=== PATIENT | female | born 1945 | race Caucasian/White ===

== ENCOUNTER 2016-06-29 20:01 | Emergency (ER) | payer MEDICARE, OTHER ==
[2016-06-29] MEDS ORDERED: METOPROLOL 5 MG/5 ML VIAL IVP STA ×2 (20:31→21:07)
[2016-06-29] MEDS ORDERED: METOPROLOL 5 MG/5 ML VIAL IVP ONE ×2 (20:36→21:12)
[2016-06-29] MEDS ORDERED: WARFARIN 5 MG TABLET PO STA (21:34)
[2016-06-29] MEDS ORDERED: ATENOLOL 25 MG TABLET PO STA (21:34)
[2016-06-29] MEDS ORDERED: ATENOLOL 25 MG TABLET ONE (21:38)
== END 2016-06-29 22:16 | disposition home or self-care (01) ==
DX: I48.91 Unspecified atrial fibrillation (principal); Z79.01 Long term (current) use of anticoagulants; I48.92 Unspecified atrial flutter; R94.31 Abnormal electrocardiogram [ECG] [EKG]; I10 Essential (primary) hypertension; G35 Multiple sclerosis; M79.7 Fibromyalgia; I25.10 Atherosclerotic heart disease of native coronary artery without angina pectoris; J45.909 Unspecified asthma, uncomplicated; M19.90 Unspecified osteoarthritis, unspecified site
CPT/HCPCS: 36415; 80053; 83690; 85025; 85610; 93005; 93010; 96374; 96376; 99284; A9270

== ENCOUNTER 2017-11-25 05:11 | Emergency (ER) | payer MEDICARE, OTHER ==
--- NOTE | 2017-11-25 05:21 | ED Physician Documentation ---
PD HPI HEADACHE - Stated complaint Stated Complaint: HEADACHE/WEAKNESS - History obtained from History obtained from: Patient - History of Present Illness Timing - onset: How many days ago (3) Timing - details: Abrupt onset (left chest wall pain), Gradual onset (CAPPS) Pain level max: 8 Pain level now: 3 Worst headache ever?: No: Worst headache ever? Location: Global Quality: Aching Associated symptoms: No: Fever, Stiff neck, Nausea, Vomiting, Weakness, Numbness, Syncope, Seizure, Eye pain, Vision changes Worsened by: Moving (chest) Recently seen: Not recently seen - Additional information Additional information: Complains of three days of generalized, global headache, generalized body aches, fatigue, achy everywhere. subjective fevers (did not take her temperature but feels chills, sweats, and as though she has had fevers. She took Tylenol approximately two hours prior to arrival.) She also fell 1 to 2 weeks ago, complains of left lower chest wall pain after landing on left side of chest. earlier today, she took two Vicodin for her headache and left chest wall pain, one Vicodin followed by a repeat dose two hours later, with excellent relief of her discomfort. Review of Systems Constitutional: reports: Fever (subjective), Chills, Myalgias, Fatigue, Sweats Eyes: reports: Reviewed and negative Ears: reports: Reviewed and negative Cardiac: reports: Chest pain / pressure (left chest wall pain) Respiratory: reports: Reviewed and negative GI: reports: Reviewed and negative : denies: Dysuria, Frequency Neurologic: reports: Headache. 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 Cardiovascular: CABG - Present Medications Home Medications: Ambulatory Orders Medication Instructions Recorded Confirmed Fluoxetine HCl [Prozac] 10 mg PO DAILY 01/16/14 06/29/16 Gabapentin [Neurontin] 100 mg PO QPM 01/16/14 06/29/16 Losartan [Cozaar] 100 mg PO DAILY 01/16/14 06/29/16 Omeprazole [Prilosec] 20 mg PO DAILY 01/16/14 06/29/16 Atenolol 50 mg PO DAILY 08/12/14 06/29/16 Atorvastatin Calcium 20 mg DAILY 06/29/16 06/29/16 Warfarin Sodium [Coumadin] 2.5 mg DAILY 06/29/16 06/29/16 - Allergies Allergies/Adverse Reactions: Allergies Allergy/AdvReac Type Severity Reaction Status Date / Time amoxicillin trihydrate * Allergy Rash Verified 11/25/17 05:35 [From Augmentin] nitrofurantoin Allergy Rash Verified 11/25/17 05:35 macrocrystalline * [From Macrodantin] potassium clavulanate * Allergy Rash Verified 11/25/17 05:35 [From Augmentin] lisinopril AdvReac Unknown Verified 11/25/17 05:35 - Social History Does the pt smoke?: No Smoking Status: Never smoker Does the pt drink ETOH?: Yes Does the pt have substance abuse?: No - Immunizations Immunizations are current?: Yes - POLST Patient has POLST: Yes PD ED PE NORMAL - Vitals Vital signs reviewed: Yes - General General: Alert and oriented X 3, No acute distress, Well developed/nourished - HEENT HEENT: PERRL, EOMI, Moist mucous membranes, Pharynx benign - Neck Neck: Supple, no meningeal sign - Cardiac Cardiac: RRR, No murmur - Respiratory Respiratory: No respiratory distress, Clear bilaterally - Abdomen Abdomen: Soft, Non tender (with particular attention to LUQ (proximity of left chest wall injury): nontender abdomen) - Extremities Extremities: No edema - Neuro Neuro: Alert and oriented X 3 - Free text exam Free text exam: mild TTP directly over left lower anterior ribs without crepitus or [employer] Results - Vitals Vitals: Oxygen O2 Source Room air - Labs Labs: Laboratory Tests 11/25/17 11/25/17 11/25/17 06:00 06:07 06:07 WBC 6.4 RBC 3.87 L Hgb 12.9 Hct 37.6 MCV 97.2 MCH 33.2 H MCHC 34.2 RDW 13.5 Plt Count 182 MPV 8.6 Neut # (Auto) 4.6 Lymph # (Auto) 0.8 L [place] # (Auto) 0.7 Eos # (Auto) 0.3 Baso # (Auto) 0.0 Absolute Nucleated RBC 0.00 Nucleated RBC % 0.1 PT 18.1 H INR 1.6 H APTT 26.9 Sodium Potassium Chloride Carbon Dioxide Anion Gap BUN Creatinine Estimated GFR (MDRD) Glucose Calcium Total Bilirubin AST ALT Alkaline Phosphatase Total Protein Albumin Globulin Albumin/Globulin Ratio Lipase Urine Color YELLOW Urine Clarity CLEAR Urine pH 6.0 Ur Specific [place] 1.020 Urine Protein NEGATIVE Urine Glucose (UA) NEGATIVE Urine Ketones NEGATIVE Urine Occult Blood TRACE-INTA Urine Nitrite NEGATIVE Urine Bilirubin NEGATIVE Urine Urobilinogen 0.2 (NORMAL) Ur Leukocyte Esterase NEGATIVE Ur Microscopic Review NOT INDICATED Urine Culture Comments NOT INDICATED 11/25/17 06:07 WBC RBC Hgb Hct MCV MCH MCHC RDW Plt Count MPV Neut # (Auto) Lymph # (Auto) [place] # (Auto) Eos # (Auto) Baso # (Auto) Absolute Nucleated RBC Nucleated RBC % PT INR APTT Sodium 138 Potassium 3.7 Chloride 102 Carbon Dioxide 30 Anion Gap 6.0 BUN 9 Creatinine 0.6 Estimated GFR (MDRD) 98 Glucose 116 H Calcium 8.5 Total Bilirubin 0.7 AST 22 ALT 16 Alkaline Phosphatase 58 Total Protein 6.7 Albumin 3.9 Globulin 2.8 Albumin/Globulin Ratio 1.4 Lipase 26 Urine Color Urine Clarity Urine pH Ur Specific [place] Urine Protein Urine Glucose (UA) Urine Ketones Urine Occult Blood Urine Nitrite Urine Bilirubin Urine Urobilinogen Ur Leukocyte Esterase Ur Microscopic Review Urine Culture Comments - Rads (name of study) [facility] Radiology: Prelim report reviewed, See rad report PD MEDICAL DECISION MAKING - ED course Complexity details: reviewed results, re-evaluated patient, considered differential, d/w patient, d/w family ED course: patient has left chest wall injury with exam findings that do not suggest the need for emergent study, such as x-ray. Her other complaints are suggestive of a viral illness, such as influenza, although her fevers have been subjective and not measured. She is afebrile and emergency department, although she took acetaminophen 1 to 2 hours prior to arrival. Because of her recent fall, her headache, and The fact that she is on warfarin, a CAT scan of her head was performed. Results are unremarkable for acute injury. - Sepsis Event Vital Signs: Oxygen O2 Source Room air Departure - Departure Disposition: 01 Home, Self Care Clinical Impression: Myalgia Headache Qualifiers: Headache type: unspecified Headache chronicity pattern: acute headache Intractability: not intractable Qualified Code(s): R51 - Headache Condition: Good Instructions: ED Cephalgia Unspecified, ED Contusion Vs Minor Fx Rib Follow-Up: Matteo Osborne MD [Primary Care Provider] - Discharge Date/Time: 11/25/17 07:07
[2017-11-25 06:11] LABS: BILIRUBIN,URINE NEGATIVE (NEGATIVE); GLUCOSE, URINE (UA) NEGATIVE (NEGATIVE); KETONES,URINE (UA) NEGATIVE (NEGATIVE); LEUKOCYTE ESTERASE, URINE NEGATIVE (NEGATIVE); NITRITE,URINE NEGATIVE (NEGATIVE); OCCULT BLOOD,URINE TRACE-INTA (NEGATIVE); PROTEIN,URINE NEGATIVE (NEGATIVE); UROBILINOGEN,URINE 0.2 (NORMAL) E.U./dL (NORMAL)
[2017-11-25 06:18] LABS: CLARITY,URINE CLEAR (CLEAR)
[2017-11-25 06:23] LABS: BASOPHILS % (AUTO) 0.2 %; EOSINOPHILS # (AUTO) 0.3 10^3/uL (0.0-0.7); EOSINOPHILS % (AUTO) 4.3 %; HGB - HEMOGLOBIN 12.9 g/dL (12.0-16.0); LYMPHOCYTES # (AUTO) 0.8 10^3/uL (1.5-3.5); LYMPHOCYTES % (AUTO) 13.2 %; MEAN CORPUSCULAR HEMOGLOBIN 33.2 pg (27.0-31.0); MEAN CORPUSCULAR HGB CONC 34.2 g/dL (32.0-36.0); MEAN CORPUSCULAR VOLUME 97.2 fL (81.0-99.0); MEAN PLATELET VOLUME 8.6 fL (7.9-10.8); MONOCYTES # (AUTO) 0.7 10^3/uL (0.0-1.0); MONOCYTES % (AUTO) 10.9 %; NEUTROPHILS # (AUTO) 4.6 10^3/uL (1.5-6.6); NEUTROPHILS % (AUTO) 71.4 %; PLT - PLATELET COUNT 182 10^3/uL (130-450); RED BLOOD COUNT 3.87 10^6/uL (4.20-5.40); RED CELL DISTRIBUTION WIDTH 13.5 % (12.0-15.0); WHITE BLOOD COUNT 6.4 x10^3/uL (4.8-10.8)
[2017-11-25 06:27] LABS: INR 1.6 (0.8-1.2); PT - PROTHROMBIN TIME 18.1 secs (9.9-12.6)
[2017-11-25 06:33] LABS: ALBUMIN 3.9 g/dL (3.2-5.5); BILIRUBIN,TOTAL 0.7 mg/dL (0.2-1.0); CALCIUM 8.5 mg/dL (8.5-10.3); CREATININE 0.6 mg/dL (0.4-1.0); TOTAL PROTEIN 6.7 g/dL (6.7-8.2)
[2017-11-25 06:34] LABS: ALBUMIN/GLOBULIN RATIO 1.4 (1.0-2.2)
--- NOTE | 2017-11-25 06:34 | CT Report ---
Reason: headache Procedure Date: 11/25/2017 Accession Number: [id number] / [id number] Procedure: CT - Head W/O CPT Code: FULL RESULT: EXAM: CT HEAD EXAM DATE: 11/25/2017 06:06 AM. CLINICAL HISTORY: Headache. COMPARISON: 01/19/2012 11:07 AM. TECHNIQUE: Multiaxial CT images were obtained from the foramen magnum to the vertex. Reformats: Coronal. IV contrast: None. In accordance with CT protocol optimization, one or more of the following dose reduction techniques were utilized for this exam: automated exposure control, adjustment of mA and/or KV based on patient size, or use of iterative reconstructive technique. FINDINGS: Parenchyma: No intraparenchymal hemorrhage. No evidence of mass, midline shift, or CT findings of infarction. Fernandes-white differentiation is distinct. There is mild to moderate chronic microvascular ischemic change in the periventricular and deep white matter bilaterally. This has progressed since the prior CT in 2011. Extraaxial Spaces: Age-related generalized cerebral volume loss has also progressed. No subdural or epidural collections identified. Ventricles: Normal. No hydrocephalus. Sinuses and Orbits: Imaged paranasal sinuses, orbits, and mastoids show no significant abnormality. Bones: No evidence of fracture or calvarial defect. Other: None. IMPRESSION: 1. No acute intracranial abnormality. 2. No intracranial mass lesion, mass-effect, or hydrocephalus. 3. Age-related generalized cerebral volume loss and chronic microvascular change has progressed since the prior CT on 01/19/2012. RADIA
[2017-11-25 07:07] VITALS: BP 106/71
== END 2017-11-25 07:07 | disposition home or self-care (01) ==
LOC: ED 05:11
DX: M79.1 Myalgia (principal); R51 Headache; I10 Essential (primary) hypertension; E78.00 Pure hypercholesterolemia, unspecified; I25.10 Atherosclerotic heart disease of native coronary artery without angina pectoris; I48.91 Unspecified atrial fibrillation; Z95.1 Presence of aortocoronary bypass graft; Z79.01 Long term (current) use of anticoagulants
CPT/HCPCS: 36415; 70450; 80053; 81001; 81003; 83690; 85025; 85610; 85730; 87086; 99283

== ENCOUNTER 2017-11-30 09:25 | Outpatient (CLI) | payer MEDICARE, OTHER ==
--- NOTE | 2017-11-30 15:59 | XRAY Report ---
Reason: RECENT FALL DECREASED LUNG SOUNDS R LOWER Procedure Date: 11/30/2017 Accession Number: [id number] / [id number] Procedure: XR - Chest 2 View X-Ray CPT Code: 26912 FULL RESULT: EXAM: CHEST RADIOGRAPHY EXAM DATE: 11/30/2017 09:43 AM. CLINICAL HISTORY: Recent fall. Decreased lung sounds. COMPARISON: XR CHEST PA AND LAT 07/26/2010 5:38 AM. TECHNIQUE: 2 views. FINDINGS: Lungs/Pleura: Compared to 07/26/2010, there is no marked interval elevation of the right hemidiaphragm likely with an associated pleural effusion. A previously seen left pleural effusion has resolved. Mediastinum: The cardiomediastinal silhouette is unchanged accounting for differences in pulmonary status. Other: Median sternotomy wires are noted. IMPRESSION: 1. Interval elevation of the right hemidiaphragm with a pleural effusion. Given the history of trauma, associated rib fracture as well as pulmonary contusion are not excluded. 2. Resolution of the left pleural effusion seen in 2010. RADIA
--- NOTE | 2017-11-30 17:12 | XRAY Report ---
Reason: L WRITS PAIN, SWOLLEN Procedure Date: 11/30/2017 Accession Number: [id number] / [id number] Procedure: XR - Wrist 3 View LT CPT Code: FULL RESULT: EXAM: LEFT WRIST RADIOGRAPHY EXAM DATE: 11/30/2017 09:43 AM. CLINICAL HISTORY: Left wrist pain, swollen. COMPARISON: None. TECHNIQUE: 3 views. FINDINGS: Bones: Normal. No fractures or bone lesions. Joints: Mild degenerative changes about the first carpometacarpal joint. Soft Tissues: A surgical clip in the soft tissues corresponds to the patient's provided history of vein harvest. IMPRESSION: Mild degenerative changes as described. RADIA
== END 2017-11-30 09:26 | disposition home or self-care (01) ==
LOC: DI 09:25
PROVIDERS: ATTEND Family Medicine
DX: M25.532 Pain in left wrist (principal); J90 Pleural effusion, not elsewhere classified
CPT/HCPCS: 71046

== ENCOUNTER 2017-12-01 03:36 | Outpatient (CLI) | payer MEDICARE, OTHER | END 2017-12-01 03:37 | disposition critical access hospital (66) | LOC: EMS 03:36 | PROVIDERS: ATTEND Surgery | DX: R06.02 Shortness of breath (principal); R07.1 Chest pain on breathing | CPT/HCPCS: A0425; A0427 ==

== ENCOUNTER 2017-12-01 03:53 | Emergency (ER) | payer MEDICARE, OTHER ==
[2017-12-01 04:33] LABS: BASOPHILS % (AUTO) 0.3 %; EOSINOPHILS % (AUTO) 0.4 %; HGB - HEMOGLOBIN 11.7 g/dL (12.0-16.0); LYMPHOCYTES # (AUTO) 1.4 10^3/uL (1.5-3.5); MEAN CORPUSCULAR HEMOGLOBIN 33.2 pg (27.0-31.0); MEAN CORPUSCULAR HGB CONC 35.1 g/dL (32.0-36.0); MEAN CORPUSCULAR VOLUME 94.8 fL (81.0-99.0); MEAN PLATELET VOLUME 8.2 fL (7.9-10.8); MONOCYTES # (AUTO) 0.6 10^3/uL (0.0-1.0); MONOCYTES % (AUTO) 4.1 %; NEUTROPHILS # (AUTO) 11.6 10^3/uL (1.5-6.6); NEUTROPHILS % (AUTO) 85.2 %; PLT - PLATELET COUNT 288 10^3/uL (130-450); RED BLOOD COUNT 3.53 10^6/uL (4.20-5.40); RED CELL DISTRIBUTION WIDTH 13.5 % (12.0-15.0); WHITE BLOOD COUNT 13.6 x10^3/uL (4.8-10.8)
[2017-12-01 04:34] LABS: INR 3.1 (0.8-1.2); PT - PROTHROMBIN TIME 33.6 secs (9.9-12.6)
[2017-12-01 04:40] LABS: ALBUMIN 3.4 g/dL (3.2-5.5); ALBUMIN/GLOBULIN RATIO 0.8 (1.0-2.2); BILIRUBIN,TOTAL 0.5 mg/dL (0.2-1.0); CALCIUM 8.7 mg/dL (8.5-10.3); CREATININE 0.6 mg/dL (0.4-1.0); TOTAL PROTEIN 7.5 g/dL (6.7-8.2)
--- NOTE | 2017-12-01 04:48 | XRAY Report ---
Reason: dyspnea Procedure Date: 12/01/2017 Accession Number: [id number] / [id number] Procedure: XR - Chest 2 View X-Ray CPT Code: 59263 FULL RESULT: EXAM: CHEST RADIOGRAPHY EXAM DATE: 12/01/2017 04:41 AM. CLINICAL HISTORY: Dyspnea. COMPARISON: CHEST 2 VIEW 11/30/2017 9:35 AM. TECHNIQUE: 2 views. FINDINGS: Lungs/Pleura: Stable elevation of the right hemidiaphragm, with small right effusion. No pneumothorax. The left lung remains clear. Mediastinum: Changes of median sternotomy. No cardiomegaly. Other: None. IMPRESSION: Stable elevation of the right hemidiaphragm, with small right pleural effusion. RADIA
[2017-12-01] MEDS ORDERED: POTASSIUM BICARB 25 MEQ TABLET PO STA (06:44)
[2017-12-01] MEDS ORDERED: IPRATROPIUM/ALBUTEROL 3 ML NEB INH STA (07:56)
[2017-12-01 07:57] LABS: BILIRUBIN,URINE NEGATIVE (NEGATIVE); GLUCOSE, URINE (UA) NEGATIVE (NEGATIVE); KETONES,URINE (UA) NEGATIVE (NEGATIVE); LEUKOCYTE ESTERASE, URINE TRACE (NEGATIVE); NITRITE,URINE NEGATIVE (NEGATIVE); OCCULT BLOOD,URINE SMALL (NEGATIVE); PROTEIN,URINE 30 mg/dL (NEGATIVE); UROBILINOGEN,URINE 0.2 (NORMAL) E.U./dL (NORMAL)
[2017-12-01 08:01] LABS: CLARITY,URINE CLEAR (CLEAR)
[2017-12-01 08:15] LABS: BACTERIA,URINE Moderate /HPF (None Seen); MUCUS,URINE Marked Strands; RBC,URINE 0-5 /HPF (0-5); SQUAMOUS EPITHELIAL CELL,UR MOD Squamous (<= Few)
--- NOTE | 2017-12-01 08:20 | ED Physician Documentation ---
PD HPI DYSPNEA - Stated complaint Stated Complaint: SOA, LEFT HAND AND RIB PAIN - Chief complaint Chief Complaint: Resp - History obtained from History obtained from: Patient, Family - History of Present Illness Timing - onset: Enter time (299), Today Timing - onset during: Sleep Timing - duration: Minutes Timing - details: Abrupt onset, Still present Inciting event(s): Other (recent chest trauma) Improved by: O2, Inhaler/neb Worsened by: Exertion, Coughing Associated symptoms: Cough, Wheezing, Chest pain / discomfort Similar symptoms before: Diagnosis (chest wall contusion) Recently seen: Clinic, Emergency Dept - Additional information Additional information: 72-year-old female who had a ground-level fall 10 days ago injuring her left chest wall and her left thumb. She did not seek immediate attention and about 5 days ago the patient was seen in the emergency department here and had CT scan done of the head because she was complaining of a headache and was on Coumadin. She had chest wall pain then but imaging was not obtained. She was subequetly seen at [facility] and had imaging done 2 days later. She has continued chest wall pain and has seen her PMD in follow up and had x-rays done yesterday. This morning she awoke with a coughing paroxysm and shortness of breath and called the ambulance. She was given a duoneb treatment en-route and is improved on arrival. She received IV solumedrol as well. Her pain and shortness of breath are markedly improved on arrival. Review of Systems Constitutional: denies: Fever Eyes: denies: Decreased vision Ears: denies: Ear pain Nose: denies: Congestion Throat: denies: Sore throat Cardiac: reports: Chest pain / pressure. 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 Cardiovascular: CABG - Present Medications Home Medications: Ambulatory Orders Medication Instructions Recorded Confirmed Fluoxetine HCl [Prozac] 10 mg PO DAILY 01/16/14 06/29/16 Gabapentin [Neurontin] 100 mg PO QPM 01/16/14 06/29/16 Losartan [Cozaar] 100 mg PO DAILY 01/16/14 06/29/16 Omeprazole [Prilosec] 20 mg PO DAILY 01/16/14 06/29/16 Atenolol 50 mg PO DAILY 08/12/14 06/29/16 Atorvastatin Calcium 20 mg DAILY 06/29/16 06/29/16 Warfarin Sodium [Coumadin] 2.5 mg DAILY 06/29/16 06/29/16 Albuterol Sulf [Ventolin Hfa 1 - 2 puffs INH Q4HR PRN #1 inhaler 12/01/17 Inhaler] - Allergies Allergies/Adverse Reactions: Allergies Allergy/AdvReac Type Severity Reaction Status Date / Time amoxicillin trihydrate * Allergy Rash Verified 12/01/17 04:03 [From Augmentin] nitrofurantoin Allergy Rash Verified 12/01/17 04:03 macrocrystalline * [From Macrodantin] potassium clavulanate * Allergy Rash Verified 12/01/17 04:03 [From Augmentin] lisinopril AdvReac Unknown Verified 12/01/17 04:03 - Social History Does the pt smoke?: No Smoking Status: Never smoker Does the pt drink ETOH?: Yes Does the pt have substance abuse?: No - Immunizations Immunizations are current?: Yes - POLST Patient has POLST: Yes PD ED PE NORMAL - Vitals Vital signs reviewed: Yes (hypertensive and tachycardic ) - General General: Alert and oriented X 3, No acute distress, Well developed/nourished - HEENT HEENT: Atraumatic, PERRL, EOMI - Neck Neck: Supple, no meningeal sign - Cardiac Cardiac: RRR, No murmur - Respiratory Respiratory: No respiratory distress, Clear bilaterally, Other (There is chest wall tenderness to the left lateral chest wall. There are diminished breath sounds bilaterally ) - Abdomen Abdomen: Soft, Non tender - Back Back: No CVA TTP, No spinal TTP - Derm Derm: Normal color, Warm and dry, No rash - Extremities Extremities: No deformity, No edema, Other (There is point tenderness to the anatomic snuff box on the left with good ROM of the wrist and distal n/v is intact. ) - Neuro Neuro: Alert and oriented X 3, No motor deficit, No sensory deficit Eye Opening: Spontaneous Motor: Obeys Commands Verbal: Oriented GCS Score: 15 - Psych Psych: Normal mood, Normal affect Results - Vitals Vitals: Vital Signs - 24 hr 12/01/17 12/01/17 12/01/17 03:55 04:03 05:38 Temperature 36.3 C L Heart Rate 106 H 102 H 88 Respiratory 20 18 17 Rate Blood Pressure 208/98 H 193/95 H 151/65 H O2 Saturation 91 L 94 94 12/01/17 12/01/17 12/01/17 06:06 06:12 08:05 Temperature Heart Rate 86 76 Respiratory 20 18 Rate Blood Pressure 155/70 H 149/76 H O2 Saturation 91 L 93 95 12/01/17 08:22 Temperature Heart Rate 88 Respiratory 24 Rate Blood Pressure O2 Saturation Oxygen O2 Source Nasal cannula Oxygen Flow Rate 2 - EKG (time done) 0406 Rate: Rate (enter#) (101) Rhythm: Sinus tachycardia Intervals: Prolonged QT QRS: LVH Compare to prior EKG: Changed from prior EKG (SPT 06-29-16 rate has decreased. ) Computer interpretation: Agree with computer - Labs Labs: Laboratory Tests 12/01/17 12/01/17 12/01/17 04:15 04:15 04:15 WBC 13.6 H RBC 3.53 L Hgb 11.7 L Hct 33.5 L MCV 94.8 MCH 33.2 H MCHC 35.1 RDW 13.5 Plt Count 288 MPV 8.2 Neut # (Auto) 11.6 H Lymph # (Auto) 1.4 L [place] # (Auto) 0.6 Eos # (Auto) 0.0 Baso # (Auto) 0.0 Absolute Nucleated RBC 0.01 Nucleated RBC % 0.0 PT INR Sodium 138 Potassium 2.9 L Chloride 102 Carbon Dioxide 26 Anion Gap 10.0 BUN 13 Creatinine 0.6 Estimated GFR (MDRD) 98 Glucose 119 H Calcium 8.7 Total Bilirubin 0.5 AST 23 ALT 17 Alkaline Phosphatase 58 Troponin I < 0.04 B-Natriuretic Peptide Total Protein 7.5 Albumin 3.4 Globulin 4.1 Albumin/Globulin Ratio 0.8 L Lipase 21 L Urine Color Urine Clarity Urine pH Ur Specific [place] Urine Protein Urine Glucose (UA) Urine Ketones Urine Occult Blood Urine Nitrite Urine Bilirubin Urine Urobilinogen Ur Leukocyte Esterase Urine RBC Urine WBC Ur Epithelial Cells Ur Squamous Epith Cells Urine Bacteria Urine Mucus Ur Microscopic Review Urine Culture Comments 12/01/17 12/01/17 12/01/17 04:15 04:15 07:48 WBC RBC Hgb Hct MCV MCH MCHC RDW Plt Count MPV Neut # (Auto) Lymph # (Auto) [place] # (Auto) Eos # (Auto) Baso # (Auto) Absolute Nucleated RBC Nucleated RBC % PT 33.6 H INR 3.1 H Sodium Potassium Chloride Carbon Dioxide Anion Gap BUN Creatinine Estimated GFR (MDRD) Glucose Calcium Total Bilirubin AST ALT Alkaline Phosphatase Troponin I B-Natriuretic Peptide 421 H Total Protein Albumin Globulin Albumin/Globulin Ratio Lipase Urine Color YELLOW Urine Clarity CLEAR Urine pH 6.0 Ur Specific [place] 1.020 Urine Protein 30 H Urine Glucose (UA) NEGATIVE Urine Ketones NEGATIVE Urine Occult Blood SMALL H Urine Nitrite NEGATIVE Urine Bilirubin NEGATIVE Urine Urobilinogen 0.2 (NORMAL) Ur Leukocyte Esterase TRACE H Urine RBC 0-5 Urine WBC 4-5 Ur Epithelial Cells FEW Transitional Ur Squamous Epith Cells MOD Squamous H Urine Bacteria Moderate H Urine Mucus Marked Strands Ur Microscopic Review INDICATED Urine Culture Comments NOT INDICATED - Rads (name of study) 2 view chest Radiology: Prelim report reviewed (Impression: Stable elevation of right hemidiaphragm, with small right pleural effusion.), EMP read indepedently, See rad report PD MEDICAL DECISION MAKING - ED course Complexity details: reviewed results, re-evaluated patient, considered differential, d/w patient, d/w family ED course: 72-year-old female with a chest wall injury has pain and wheezing 2 weeks + out from the injury. She has some room air hypoxia on arrival and no evidence of pneumonia on x-ray exam. There has been no progression over the past day and in fact the x-ray today shows a better inspiratory effort. - Sepsis Event Vital Signs: Vital Signs - 24 hr 12/01/17 12/01/17 12/01/17 03:55 04:03 05:38 Temperature 36.3 C L Heart Rate 106 H 102 H 88 Respiratory 20 18 17 Rate Blood Pressure 208/98 H 193/95 H 151/65 H O2 Saturation 91 L 94 94 12/01/17 12/01/17 12/01/17 06:06 06:12 08:05 Temperature Heart Rate 86 76 Respiratory 20 18 Rate Blood Pressure 155/70 H 149/76 H O2 Saturation 91 L 93 95 //18 08:22 Temperature Heart Rate 88 Respiratory 24 Rate Blood Pressure O2 Saturation Oxygen O2 Source Nasal cannula Oxygen Flow Rate 2 Departure - Departure Disposition: 01 Home, Self Care Clinical Impression: Chest wall contusion Qualifiers: Encounter type: initial encounter Laterality: left Qualified Code(s): S20.212A - Contusion of left front wall of thorax, initial encounter Left wrist sprain Qualifiers: Encounter type: initial encounter Qualified Code(s): S63.502A - Unspecified sprain of left wrist, initial encounter Condition: Stable Instructions: ED Contusion Rib, ED Sprain Wrist, ED Contusion Vs Minor Fx Rib Follow-Up: Matteo Osborne MD [Provider Admit Priv/Credential] - Prescriptions: Albuterol Sulf [Ventolin Hfa Inhaler] 1 - 2 puffs INH Q4HR PRN #1 inhaler PRN Reason: Shortness Of Air/Wheezing
[2017-12-01 09:27] VITALS: BP 138/74
== END 2017-12-01 09:26 | disposition home or self-care (01) ==
LOC: EDUNIT# → ED 03:53
DX: S20.212A Contusion of left front wall of thorax, initial encounter (principal); S63.502A Unspecified sprain of left wrist, initial encounter; R00.0 Tachycardia, unspecified; I51.7 Cardiomegaly; I45.81 Long QT syndrome; I10 Essential (primary) hypertension; I48.91 Unspecified atrial fibrillation; Z79.01 Long term (current) use of anticoagulants; W18.30XA Fall on same level, unspecified, initial encounter
CPT/HCPCS: 36415; 71046; 80053; 81001; 83690; 83880; 84484; 85025; 85610; 93005; 94640; 94664; 99283; 99284; A9270; 81003; 87086

== ENCOUNTER 2018-02-17 08:35 | Outpatient (CLI) | payer MEDICARE, OTHER ==
--- NOTE | 2018-02-17 11:08 | Mammography Report ---
Reason: LEFT BREAST ITICHINESS Procedure Date: 02/17/2018 Accession Number: [id number] / [id number] Procedure: ALEKSANDR - Diagnostic Dig Bilat CPT Code: FULL RESULT: EXAM: Diagnostic Dig Bilat DATE: 02/17/2018 10:22 AM CLINICAL HISTORY: Diagnostic mammogram. The patient presents for multiple months of breast imaging. The patient has a history of early menses and breast implants with silicone placed in 1981 which have since been removed. TECHNIQUE: Bilateral CC and MLO views were obtained and 2-D and 3-D mammographic technique. COMPARISON: 05/24/2013. FINDINGS: The breasts demonstrate scattered fibroglandular densities bilaterally. Typically benign calcifications are noted. Additionally, large coarse hyperdensities suggestive of silicone leakage or silicone granuloma consistent with history of previous silicone implants, typically benign. No suspicious masses, calcifications or architectural distortions are identified. IMPRESSION: Benign findings RECOMMENDATION: Recommend routine annual Screening mammography unless otherwise clinically indicated. BIRADS CATEGORY 2: Benign findings STANDARD QUALIFYING STATEMENTS: 1. This examination was not reviewed with the aid of Computer-Aided Detection (CAD). 2. A negative or benign imaging report should not delay biopsy if clinically suspicious findings are present. Consider surgical consultation if warrented. More than 5% of cancers are not identified by imaging. 3. Dense breasts may obscure an underlying neoplasm. 4. This examination was reviewed with the aid of 3D imaging (tomography).
== END 2018-02-17 08:36 | disposition home or self-care (01) ==
LOC: DI 08:35
PROVIDERS: ATTEND Internal Medicine
DX: N64.59 Other signs and symptoms in breast (principal); Z98.82 Breast implant status; M35.3 Polymyalgia rheumatica; Z79.52 Long term (current) use of systemic steroids; M85.89 Other specified disorders of bone density and structure, multiple sites
CPT/HCPCS: 77066; 77080

== ENCOUNTER 2018-02-17 08:36 | Outpatient (CLI) | payer MEDICARE, OTHER ==
--- NOTE | 2018-02-20 18:55 | DEXA Report ---
Reason: PMR ON PREDNISONE-CHRONIC Procedure Date: 02/17/2018 Accession Number: [id number] / [id number] Procedure: DEX - Dexa Spine and/or Hip CPT Code: FULL RESULT: EXAM: Dexa Spine and/or Hip DATE: 02/17/2018 10:38 AM CLINICAL HISTORY: PMR ON PREDNISONE-CHRONIC TECHNIQUE: Dual energy x-ray absorptiometry (DXA) was performed on a [employer] System. Regions measured are the AP Spine, femoral neck, and if needed forearm. COMPARISON: None. In accordance with the International Society for Clinical Densitometry (ISCD) guidelines, data from previous exams may be reanalyzed using current recommendations and techniques. This is done to allow a more accurate basis for comparison with the current study. FINDINGS: The data for the lumbar spine is as follows: BMD (g/cm/cm) T-SCORE Z-SCORE REGION L1 0.955 -1.5 0.3 L2 0.983 -1.8 0.0 L3 1.099 -0.8 0.9 L4 1.039 -1.3 0.4 TOTAL 1.023 -1.3 0.5 NOTE: All evaluable vertebrae are used for classification The data for the hip is as follows: BMD (g/cm/cm) T-SCORE Z-SCORE REGION Neck 0.800 -1.7 0.1 TOTAL 0.749 -2.1 -0.4 NOTE: The femoral neck or total proximal femur, whichever is lowest, is used for classification. IMPRESSION: THE WHO CLASSIFICATION BASED ON THE INTERNATIONAL REFERENCE STANDARD IS OSTEOPENIA. THE FRACTURE RISK IS INCREASED. RECOMMENDATION: Patients with diagnosis of osteoporosis or osteopenia should have regular bone mineral density assessment. For those eligible for Medicare, routine testing is allowed once every 2 years. Testing frequency can be increased for patients who have rapidly progressing disease or for those who are receiving medical therapy to restore bone mass. COMMENT: World Health Organization (WHO) definitions for osteoporosis and osteopenia: NORMAL BMD: T-score at -1.0 or higher, fracture risk is low OSTEOPENIA BMD: T-score between -1.0 and -2.5, fracture risk is increased. OSTEOPOROSIS BMD: T-score at -2.5 or lower, fracture risk is high. National Osteoporosis Foundation recommends: 1. Obtain adequate dietary calcium (at least 1200 mg per day) and vitamin D (400-800 international units per day). 2. Participate, as appropriate, in regular weightbearing and muscle-strengthening exercise. 3. Avoid tobacco use and reduce alcohol and caffeine intake. 4. For more detailed information see the website at www.NOF.org.
== END 2018-02-17 08:37 | disposition home or self-care (01) ==
LOC: DI 08:36
PROVIDERS: ATTEND Family Medicine
DX: M85.89 Other specified disorders of bone density and structure, multiple sites (principal)
CPT/HCPCS: 77080

== ENCOUNTER 2018-02-20 04:47 | Emergency (ER) | payer MEDICARE, OTHER ==
[2018-02-20 05:05] LABS: BILIRUBIN,URINE NEGATIVE (NEGATIVE); GLUCOSE, URINE (UA) NEGATIVE (NEGATIVE); KETONES,URINE (UA) NEGATIVE (NEGATIVE); LEUKOCYTE ESTERASE, URINE NEGATIVE (NEGATIVE); NITRITE,URINE NEGATIVE (NEGATIVE); OCCULT BLOOD,URINE LARGE (NEGATIVE); PROTEIN,URINE 100 mg/dL (NEGATIVE); UROBILINOGEN,URINE 0.2 (NORMAL) E.U./dL (NORMAL)
[2018-02-20 05:06] LABS: CLARITY,URINE CLEAR (CLEAR)
[2018-02-20 05:12] LABS: BACTERIA,URINE None Seen /HPF (None Seen); RBC,URINE TNTC /HPF (0-5); SQUAMOUS EPITHELIAL CELL,UR NONE SEEN (<= Few)
--- NOTE | 2018-02-20 05:27 | ED Physician Documentation ---
History of Present Illness - Stated complaint Stated Complaint: BLOOD IN URINE - Chief complaint Chief Complaint: UTI - Additonal information Additional information: hx from pt 72 f on coumadin for a fib has not checked her INR for months because she is on steroids for PMR and was advised that would alter her INR also she forgot to cut her pills so has been taking double dose to ED today for hematuria of approx 4 days aduration but also has lower abd an d back ache no fever chills NVD Review of Systems Constitutional: denies: Fever, Chills Cardiac: denies: Chest pain / pressure Respiratory: denies: Dyspnea GI: reports: Abdominal Pain. denies: Nausea, Vomiting, Diarrhea, Bloody / black stool : reports: Hematuria Musculoskeletal: reports: Back pain Endocrine: reports: Easy bruising / bleeding Immunocompromised: denies: Immunocompromised PD PAST MEDICAL HISTORY - Past Medical History Cardiovascular: Hypertension, High cholesterol, Coronary artery disease, Atrial fibrillation, Arrhythmia Respiratory: Asthma Neuro: Multiple sclerosis : Other Psych: Claustrophobia Musculoskeletal: Osteoarthritis, Fibromyalgia, Chronic back pain - Past Surgical History Past Surgical History: Yes General: Colonoscopy /PLASMA SPECIALIST: Hysterectomy Cardiovascular: CABG - Present Medications Home Medications: Ambulatory Orders Medication Instructions Recorded Confirmed Fluoxetine HCl [Prozac] 10 mg PO DAILY 01/16/14 06/29/16 Gabapentin [Neurontin] 100 mg PO QPM 01/16/14 06/29/16 Losartan [Cozaar] 100 mg PO DAILY 01/16/14 06/29/16 Omeprazole [Prilosec] 20 mg PO DAILY 01/16/14 06/29/16 Atenolol 50 mg PO DAILY 08/12/14 06/29/16 Atorvastatin Calcium 20 mg DAILY 06/29/16 06/29/16 Warfarin Sodium [Coumadin] 2.5 mg DAILY 06/29/16 06/29/16 Albuterol Sulf [Ventolin Hfa 1 - 2 puffs INH Q4HR PRN #1 inhaler 12/01/17 Inhaler] - Allergies Allergies/Adverse Reactions: Allergies Allergy/AdvReac Type Severity Reaction Status Date / Time amoxicillin trihydrate * Allergy Rash Verified 02/20/18 04:57 [From Augmentin] nitrofurantoin Allergy Rash Verified 02/20/18 04:57 macrocrystalline * [From Macrodantin] potassium clavulanate * Allergy Rash Verified 02/20/18 04:57 [From Augmentin] lisinopril AdvReac Unknown Verified 02/20/18 04:57 - Social History Does the pt smoke?: No Smoking Status: Never smoker Does the pt drink ETOH?: Yes Does the pt have substance abuse?: No - Immunizations Immunizations are current?: Yes - POLST Patient has POLST: Yes PD ED PE NORMAL - Vitals Vital signs reviewed: Yes - Cardiac Cardiac: RRR - Respiratory Respiratory: No respiratory distress - Abdomen Abdomen: Soft, Other (mild lower abd TTP s peritoneal sx, no pulsatile mass) - Back Back: No CVA TTP, Other (site of ache is lower than CVA region) - Derm Derm: Normal color - Extremities Extremities: No edema, No calf tenderness / cord - Neuro Neuro: Alert and oriented X 3 Results - Vitals Vitals: Vital Signs - 24 hr 02/20/18 02/20/18 04:53 06:17 Temperature 36.0 C L Heart Rate 63 62 Respiratory 18 18 Rate Blood Pressure 156/102 H 207/77 H O2 Saturation 97 99 Oxygen O2 Source Room air - Labs Labs: Laboratory Tests 02/20/18 02/20/18 02/20/18 05:00 05:28 05:28 WBC 9.5 RBC 3.66 L Hgb 12.4 Hct 35.8 L MCV 97.9 MCH 33.9 H MCHC 34.6 RDW 15.1 H Plt Count 223 MPV 8.9 Neut # (Auto) 5.7 Lymph # (Auto) 2.7 [place] # (Auto) 0.9 Eos # (Auto) 0.2 Baso # (Auto) 0.1 Absolute Nucleated RBC 0.00 Nucleated RBC % 0.0 PT 112.3 H INR 10.3 H* Sodium Potassium Chloride Carbon Dioxide Anion Gap BUN Creatinine Estimated GFR (MDRD) Glucose Calcium Total Bilirubin AST ALT Alkaline Phosphatase Total Protein Albumin Globulin Albumin/Globulin Ratio Lipase Urine Color RED/BLOODY Urine Clarity CLEAR Urine pH 7.0 Ur Specific [place] 1.020 Urine Protein 100 H Urine Glucose (UA) NEGATIVE Urine Ketones NEGATIVE Urine Occult Blood LARGE H Urine Nitrite NEGATIVE Urine Bilirubin NEGATIVE Urine Urobilinogen 0.2 (NORMAL) Ur Leukocyte Esterase NEGATIVE Urine RBC TNTC H Urine WBC 0-3 Ur Squamous Epith Cells NONE SEEN Urine Bacteria None Seen Ur Microscopic Review INDICATED Urine Culture Comments NOT INDICATED 02/20/18 05:28 WBC RBC Hgb Hct MCV MCH MCHC RDW Plt Count MPV Neut # (Auto) Lymph # (Auto) [place] # (Auto) Eos # (Auto) Baso # (Auto) Absolute Nucleated RBC Nucleated RBC % PT INR Sodium 140 Potassium 3.8 Chloride 101 Carbon Dioxide 30 Anion Gap 9.0 BUN 12 Creatinine 0.6 Estimated GFR (MDRD) 98 Glucose 101 H Calcium 8.8 Total Bilirubin 0.9 AST 22 ALT 22 Alkaline Phosphatase 43 Total Protein 7.1 Albumin 4.0 Globulin 3.1 Albumin/Globulin Ratio 1.3 Lipase 23 Urine Color Urine Clarity Urine pH Ur Specific [place] Urine Protein Urine Glucose (UA) Urine Ketones Urine Occult Blood Urine Nitrite Urine Bilirubin Urine Urobilinogen Ur Leukocyte Esterase Urine RBC Urine WBC Ur Squamous Epith Cells Urine Bacteria Ur Microscopic Review Urine Culture Comments - Rads (name of study) CT AP Radiology: See rad report (puncttae R distal ureteral stone with hydro and stranding - rads rec check urine for infection (neg for infection)) PD MEDICAL DECISION MAKING - ED course ED course: renal colic with supratherapeutic INR but thankfully no infection gave vit K 10 mg PO, rec hold coumadin 2 days, fup PMD Tue for recheck INR pain from renal colic is fairly mild, pt already on steroids, will rec tylenol as do not feel NSAIDS safe for this pt Departure - Departure Disposition: 01 Home, Self Care Clinical Impression: Renal colic on right side, Supratherapeutic INR Condition: Good Instructions: ED Stone Renal W Colic Follow-Up: Matteo Osborne MD [Primary Care Provider] - Comments: Your INR was very elevated at 10.3. Thankfully your blood count is still fine - you have not lost too much blood So we gave your vitamin K and you need to hold your coumadin for 2 days Then see you PMD for a recheck INR on Tuesday. If at any time you fall or get hurt or bump yur head or have blood in your BMs, com back to the ER. The CT scan shows that you are passing a very small kidney stone. That is causing the blood in the urine which is severe because of the high INR There is no urine infection and the stone is small enough to pass and your pain is not severe - so it is OK for you to go home. Drink plenty of fluids, take tylenol as needed for the pain, and filter your urine and save the stone if you catch it. Return if worse (fever, cannot urinate, severe pain, feeling faint etc)
[2018-02-20 05:47] LABS: BASOPHILS # (AUTO) 0.1 10^3/uL (0.0-0.1); BASOPHILS % (AUTO) 0.8 %; EOSINOPHILS # (AUTO) 0.2 10^3/uL (0.0-0.7); EOSINOPHILS % (AUTO) 1.9 %; HGB - HEMOGLOBIN 12.4 g/dL (12.0-16.0); LYMPHOCYTES # (AUTO) 2.7 10^3/uL (1.5-3.5); MEAN CORPUSCULAR HEMOGLOBIN 33.9 pg (27.0-31.0); MEAN CORPUSCULAR HGB CONC 34.6 g/dL (32.0-36.0); MEAN CORPUSCULAR VOLUME 97.9 fL (81.0-99.0); MEAN PLATELET VOLUME 8.9 fL (7.9-10.8); MONOCYTES # (AUTO) 0.9 10^3/uL (0.0-1.0); MONOCYTES % (AUTO) 9.5 %; NEUTROPHILS # (AUTO) 5.7 10^3/uL (1.5-6.6); NEUTROPHILS % (AUTO) 59.8 %; PLT - PLATELET COUNT 223 10^3/uL (130-450); RED BLOOD COUNT 3.66 10^6/uL (4.20-5.40); RED CELL DISTRIBUTION WIDTH 15.1 % (12.0-15.0); WHITE BLOOD COUNT 9.5 x10^3/uL (4.8-10.8)
[2018-02-20 05:50] LABS: PT - PROTHROMBIN TIME 112.3 secs (9.9-12.6)
[2018-02-20 05:58] LABS: ALBUMIN/GLOBULIN RATIO 1.3 (1.0-2.2); BILIRUBIN,TOTAL 0.9 mg/dL (0.2-1.0); CALCIUM 8.8 mg/dL (8.5-10.3); CREATININE 0.6 mg/dL (0.4-1.0); INR 10.3 (0.8-1.2); TOTAL PROTEIN 7.1 g/dL (6.7-8.2)
--- NOTE | 2018-02-20 06:14 | CT Report ---
Reason: abd pain hematuria Procedure Date: 02/20/2018 Accession Number: [id number] / [id number] Procedure: CT - Abdomen/Pelvis W/O CPT Code: FULL RESULT: EXAM: CT ABDOMEN AND PELVIS (CT KUB) EXAM DATE: 02/20/2018 05:50 AM. CLINICAL HISTORY: Abdominal pain and hematuria. COMPARISONS: None. TECHNIQUE: Routine axial helical CT imaging was performed through the abdomen and pelvis without IV contrast. Reconstructions: Coronal and sagittal. In accordance with CT protocol optimization, one or more of the following dose reduction techniques were utilized for this exam: automated exposure control, adjustment of mA and/or KV based on patient size, or use of iterative reconstructive technique. FINDINGS: Right Kidney/Ureter: There is mild right-sided hydroureteronephrosis due to an obstructing punctate stone within the right distal ureter, at the level of the right hip joint (image 117 series 3). There is thickening of the urothelial lining about the right renal pelvis. There is mild surrounding stranding. No intrarenal stones are evident at this time. No definite renal mass within the confines of a non-contrast exam. Left Kidney/Ureter: Incipient left mid kidney intrarenal stone. No hydronephrosis or hydroureter. No definite renal mass within the confines of a non-contrast exam. Abdominal Solid Organs: Abdominal parenchymal organs are without significant abnormality within the confines of a noncontrast exam. Bowel: Small hiatal hernia. No evidence of bowel obstruction. Distal colon diverticulosis without diverticulitis. Appendix: Normal. Lymph Nodes: No definite pathologic lymphadenopathy. Fluid: No significant ascites. Vasculature: Normal caliber aorta. Pelvis: No bladder stones. Uterus is absent. Postmenopausal appearance of the ovaries. Visualized pelvic organs are without significant abnormality within the confines of a noncontrast exam. Small fat-containing right inguinal hernia. Bones: No definite suspicious bony lesions demonstrated. However, bones are severely osteopenic. This reduces exam sensitivity and specificity for detection of subtle bony lesions and/or fractures. Lower Chest: No significant lung base consolidation or effusion. IMPRESSION: 1. Mild right hydroureteronephrosis. There is a punctate right distal ureteral stone at the level of the hip joint, accounting for the hydroureteronephrosis. 2. Mild thickening of the urothelial lining about the right renal pelvis and associated surrounding stranding could be secondary to superimposed urinary tract infection. Correlation with urinalysis is needed. 3. No intrarenal stones are noted within the right kidney. There is an incipient left mid to lower kidney intrarenal stone. RADIA
[2018-02-20] MEDS ORDERED: PHYTONADIONE 10 MG/ML AMP PO ONE (06:17)
[2018-02-20] MEDS ORDERED: CHERRY SYRUP 10 ML UDC PO ONE (06:17)
[2018-02-20 06:34] VITALS: BP 197/73
== END 2018-02-20 06:47 | disposition home or self-care (01) ==
LOC: ED 04:47
DX: N13.2 Hydronephrosis with renal and ureteral calculous obstruction (principal); I48.91 Unspecified atrial fibrillation; Z79.01 Long term (current) use of anticoagulants; I25.10 Atherosclerotic heart disease of native coronary artery without angina pectoris; I10 Essential (primary) hypertension; E78.00 Pure hypercholesterolemia, unspecified; G35 Multiple sclerosis; Z95.1 Presence of aortocoronary bypass graft
CPT/HCPCS: 36415; 74176; 80053; 81001; 83690; 85025; 85610; 99283; A9270; 81003; 87086

== ENCOUNTER 2018-08-12 16:30 | Outpatient (CLI) | payer MEDICARE, OTHER | END 2018-08-12 16:31 | disposition critical access hospital (66) | LOC: EMS 16:30 | PROVIDERS: ATTEND Surgery | DX: R47.81 Slurred speech (principal); R29.810 Facial weakness; R53.1 Weakness | CPT/HCPCS: A0425; A0427 ==

== ENCOUNTER 2018-08-12 16:42 | Emergency (ER) | payer MEDICARE, OTHER ==
--- NOTE | 2018-08-12 16:52 | ED Physician Documentation ---
PD HPI FOCAL NEURO - Stated complaint Stated Complaint: POSS STROKE - History obtained from History obtained from: Patient, EMS - History of Present Illness Timing - onset: Today (72-year-old woman history of atrial fibrillation, polymyalgia rheumatica and multiple sclerosis presents with sudden onset right temporal headache associated with left-sided deficits at 4 PM. Blood sugar in route was 130 and her blood pressure was approximately 210/110.) Review of Systems Constitutional: denies: Fever, Chills Cardiac: denies: Chest pain / pressure, Palpitations Respiratory: denies: Dyspnea, Cough PD PAST MEDICAL HISTORY - Past Medical History Cardiovascular: Hypertension, High cholesterol, Coronary artery disease, Atrial fibrillation, Arrhythmia Respiratory: Asthma Neuro: Multiple sclerosis : Other Psych: Claustrophobia Musculoskeletal: Osteoarthritis, Fibromyalgia, Chronic back pain - Past Surgical History Past Surgical History: Yes General: Colonoscopy /ENDOSCOPY SUPPORT SPECIALIST: Hysterectomy Cardiovascular: CABG - Present Medications Home Medications: Ambulatory Orders Medication Instructions Recorded Confirmed Fluoxetine HCl [Prozac] 10 mg PO DAILY 01/16/14 08/12/18 Losartan [Cozaar] 100 mg PO DAILY 01/16/14 08/12/18 Omeprazole [Prilosec] 20 mg PO DAILY 01/16/14 08/12/18 Atenolol 75 mg PO DAILY 08/12/14 08/12/18 Atorvastatin Calcium 20 mg DAILY 06/29/16 08/12/18 Albuterol Sulf [Ventolin Hfa 1 - 2 puffs INH Q4HR PRN #1 inhaler 12/01/17 08/12/18 Inhaler] Prednisone 5 mg PO DAILY 08/12/18 08/12/18 - Allergies Allergies/Adverse Reactions: Allergies Allergy/AdvReac Type Severity Reaction Status Date / Time amoxicillin trihydrate * Allergy Rash Verified 02/20/18 04:57 [From Augmentin] nitrofurantoin Allergy Rash Verified 02/20/18 04:57 macrocrystalline * [From Macrodantin] potassium clavulanate * Allergy Rash Verified 02/20/18 04:57 [From Augmentin] lisinopril AdvReac Unknown Verified 02/20/18 04:57 - Social History Does the pt smoke?: No Smoking Status: Never smoker Does the pt drink ETOH?: Yes Does the pt have substance abuse?: No - Immunizations Immunizations are current?: Yes - POLST Patient has POLST: Yes PD ED PE NORMAL - Vitals Vital signs reviewed: Yes - General General: Alert and oriented X 3 - HEENT HEENT: Other (Right gaze deviation cannot look to the left past midline) - Neck Neck: Supple, no meningeal sign, No bony TTP - Cardiac Cardiac: RRR, No murmur - Respiratory Respiratory: No respiratory distress, Clear bilaterally - Abdomen Abdomen: Soft, Non tender - Back Back: No CVA TTP, No spinal TTP - Derm Derm: Normal color, Warm and dry - Extremities Extremities: No edema, No calf tenderness / cord - Neuro Neuro: Alert and oriented X 3, Normal speech NIHSS - Time Time: 16:45 - Level of Consciousness Level of consciousness: (0) Alert, Keenly responsive LOC Questions: (0) Answers both Q's correct LOC Commands: (0) Performs both correctly - Gaze Best Gaze: (2) Forced deviation - Visual Visual: (2) Complete Hemianopia - Facial Palsy Facial Palsy: (3) Complete paralysis - Motor Arms (both separate) Motor Arm (right): (0) No drift Motor Arm (left): (3) No effort against gravity - Motor Legs (both separate) Motor Leg (right): (0) No drift Motor Leg (left): (2) Some effort against gravity - Limb Ataxia Limb Ataxia: (0) Absent - Sensory Sensory: (1) Inxn-vz-ztskmkjw loss - Best Language Best Language: (1) [id number] - Dysarthria Dysarthria: (1) Iikb-zs-clbmlikk dysarthria - Extinction and Inattention (formally neg Extinction and inattention: (1) Visual,tactile,auditory,spatial, or personal inattention - Total Score/Results Total Score/Result: 16 Results - Vitals Vitals: Vital Signs - 24 hr 08/12/18 16:45 Temperature 36.6 C Heart Rate 72 Respiratory 18 Rate Blood Pressure 211/95 H O2 Saturation 96 Oxygen O2 Source Room air - EKG (time done) 1706 Rate: Rate (enter#) (80) Rhythm: NSR [place]: Normal Intervals: Normal [place] QRS: Normal Ischemia: Normal ST segments Computer interpretation: Agree with computer - Labs Labs: Laboratory Tests 08/12/18 08/12/18 08/12/18 16:50 16:50 16:50 WBC 9.8 RBC 3.62 L Hgb 12.1 Hct 35.2 L MCV 97.2 MCH 33.3 H MCHC 34.3 RDW 13.6 Plt Count 282 MPV 8.4 Neut # (Auto) 7.5 H Lymph # (Auto) 1.5 [place] # (Auto) 0.6 Eos # (Auto) 0.1 Baso # (Auto) 0.1 Absolute Nucleated RBC 0.00 Nucleated RBC % 0.0 PT 12.2 INR 1.1 Sodium 140 Potassium 3.7 Chloride 103 Carbon Dioxide 25 Anion Gap 12.0 BUN 12 Creatinine 0.7 Estimated GFR (MDRD) 82 L Glucose 125 H Calcium 8.9 Total Bilirubin 0.6 AST 21 ALT 20 Alkaline Phosphatase 50 Total Protein 7.4 Albumin 3.7 Globulin 3.7 Albumin/Globulin Ratio 1.0 Lipase 27 - Rads (name of study) CT head Radiology: EMP read contemporaneously (No bleed, she does have an M1 occlusion of the right MCA.) PD MEDICAL DECISION MAKING - ED course ED course: 72-year-old woman presents by ambulance with apparently a bit debilitating stroke with time of onset of 1600. Went directly for CT which to my eye the plain CT is negative without bleed, and again to my eye she has a sharp cut off in the right MCA. Case was discussed by phone with Dr. Mike Ashford at [facility] who accepts in transfer as a code stroke and agrees with the administration of TPA prior to transport. was counseled on the risks and benefits of TPA including the potential risk of and intracranial hemorrhage and is agreeable. Blood pressure did need management prior to the administration of TPA and she was initially given 20 mg of labetalol IV. She has been on warfarin in the past but the confirms that she is not on warfarin and interestingly, she was on aspirin only until a few days ago, she is holding it because of a planned epidural steroid injection, but that has not happened yet. She has not had any recent surgeries, injections, no history of GI or intracranial bleeding. She needed another dose of 20 mg of labetalol totaling 40 mg for blood pressure control less than 180/105 prior to TPA bolus. The bolus was given at 1728. Cardene was also started and titrated. - Critical Care Time(min): 45 Time Includes: Direct patient care, Review records, Reassess patient, Document care, Coordinate care, Medical consult, Family consult for tx feb Data interpretation: Labs, Pulse ox Procedures included in critical care time: Peripheral IV Procedures excluded from critical care time: EKG Departure - Departure Disposition: 02 Transfer Acute Care Hosp Clinical Impression: Cerebrovascular accident (CVA) Qualifiers: CVA mechanism: embolism Precerebral and cerebral artery: middle cerebral artery Laterality of affected vessel: right Qualified Code(s): I63.411 - Cerebral infarction due to embolism of right middle cerebral artery Condition: Critical
[2018-08-12 16:55] LABS: BASOPHILS # (AUTO) 0.1 10^3/uL (0.0-0.1); BASOPHILS % (AUTO) 1.1 %; EOSINOPHILS # (AUTO) 0.1 10^3/uL (0.0-0.7); EOSINOPHILS % (AUTO) 1.5 %; HGB - HEMOGLOBIN 12.1 g/dL (12.0-16.0); LYMPHOCYTES # (AUTO) 1.5 10^3/uL (1.5-3.5); LYMPHOCYTES % (AUTO) 15.2 %; MEAN CORPUSCULAR HEMOGLOBIN 33.3 pg (27.0-31.0); MEAN CORPUSCULAR HGB CONC 34.3 g/dL (32.0-36.0); MEAN CORPUSCULAR VOLUME 97.2 fL (81.0-99.0); MEAN PLATELET VOLUME 8.4 fL (7.9-10.8); MONOCYTES # (AUTO) 0.6 10^3/uL (0.0-1.0); MONOCYTES % (AUTO) 5.8 %; NEUTROPHILS # (AUTO) 7.5 10^3/uL (1.5-6.6); NEUTROPHILS % (AUTO) 76.4 %; PLT - PLATELET COUNT 282 10^3/uL (130-450); RED BLOOD COUNT 3.62 10^6/uL (4.20-5.40); RED CELL DISTRIBUTION WIDTH 13.6 % (12.0-15.0); WHITE BLOOD COUNT 9.8 x10^3/uL (4.8-10.8)
[2018-08-12] MEDS ORDERED: IOVERSOL 320 100 ML VIAL IVP ONE (16:55)
[2018-08-12 17:03] LABS: INR 1.1 (0.8-1.2); PT - PROTHROMBIN TIME 12.2 secs (9.9-12.6)
[2018-08-12] MEDS ORDERED: ALTEPLASE IV STA ×2 (17:06→17:13)
[2018-08-12] MEDS ORDERED: WATER FOR INJECTION STERILE IV STA ×2 (17:06→17:13)
[2018-08-12] MEDS ORDERED: niCARdipine 20 MG/200 ML 20 MG/200 ML BAG IV STA (17:06)
[2018-08-12] MEDS ORDERED: LABETALOL 5 MG/1 ML 20 ML MDV IVP STA ×2 (17:06→17:20)
[2018-08-12 17:10] LABS: ALBUMIN 3.7 g/dL (3.2-5.5); BILIRUBIN,TOTAL 0.6 mg/dL (0.2-1.0); CALCIUM 8.9 mg/dL (8.5-10.3); CREATININE 0.7 mg/dL (0.4-1.0); TOTAL PROTEIN 7.4 g/dL (6.7-8.2)
[2018-08-12] MEDS ORDERED: LABETALOL 5 MG/1 ML 20 ML MDV ONE (17:12)
[2018-08-12 17:13] VITALS: BP 211/95
--- NOTE | 2018-08-12 17:20 | CT Report ---
Reason: L facial droop, L defecits Procedure Date: 08/12/2018 Accession Number: [id number] / [id number] Procedure: CT - Head W/O Stroke Protocol CPT Code: FULL RESULT: EXAM: CT HEAD WITH AND WITHOUT CONTRAST, STROKE PROTOCOL COMPARISON: HEAD W/O 11/25/2017 5:58 AM. HEAD ANGIO 08/12/2018 4:52 PM. CLINICAL HISTORY: Left facial droop, left deficits. TECHNIQUE: Axial CT images were obtained from the foramen magnum to the vertex before and after the uneventful intravenous administration of Optiray 320. In accordance with CT protocol optimization, one or more of the following dose reduction techniques were utilized for this exam: automated exposure control, adjustment of mA and/or KV based on patient size, or use of iterative reconstructive technique. FINDINGS: HEMORRHAGE: None. ASPECTS RIGHT: Estimated 8-9. ASPECTS LEFT: 9-10. DENSE VESSELS: None. Noncontrast head CT: No intracranial hemorrhage. No masses. No discrete dense vessels. Qualitative loss of hsieh-white superiorly on the right, raising the possibility of an evolving infarct. Ventricles are prominent, concordant with volume loss. No lytic or blastic bone lesions are seen. Rightward deviation of the bony nasal septum is noted. Mastoids are clear. Middle ears are clear. Postcontrast head CT: No abnormal parenchymal enhancement. No masses. Question incomplete filling of the distal right M1 segment (4, 12). IMPRESSION: No dense vessels. Subtle qualitative loss of hsieh-white on the right, as described. Initial, preliminary, and incomplete interpretation of the angiographic images shows a right M1 occlusion, approximately 7 mm from its origin (4, 437) of the CTA head and neck. There is minimal qualitative distal reconstitution of the vessels. The critical test notification system was initiated by Dr. Norris Hines at 05:16 PM on 08/12/2018. The above critical test findings were discussed with Wayne Chandler by Dr. Norris Hines at 05:18 PM on 08/12/2018.
[2018-08-12] MEDS ORDERED: ALTEPLASE 100 MG VIAL ONE (17:26)
--- NOTE | 2018-08-12 17:38 | CT Report ---
Reason: L facial droop, L defecits Procedure Date: 08/12/2018 Accession Number: [id number] / [id number] Procedure: CT - ANGIO HEAD W CPT Code: FULL RESULT: EXAM: CTA HEAD COMPARISON: HEAD W/O 11/25/2017 5:58 AM; CTA neck, 08/12/2018. CLINICAL HISTORY: Left facial droop, left deficit. TECHNIQUE: Axial CT images were obtained through the head during arterial phase after intravenous Iodinated Contrast . 3 dimensional MIP reconstructions are created from axial data. Stenosis is measured by NASCET type criteria. In accordance with CT protocol optimization, one or more of the following dose reduction techniques were utilized for this exam: automated exposure control, adjustment of mA and/or KV based on patient size, or use of iterative reconstructive technique. FINDINGS: Right internal carotid artery: No evident hemodynamically significant stenosis or aneurysm is identified through the terminus. Right POLITICAL SCIENCE PROFESSOR is near in origin. The right M1 is occluded approximately 7 mm from its origin (4, 36). Minimal distal reconstitution. Right A1, A2 and visualized distal segments are unremarkable. Left internal carotid artery: No evident hemodynamically significant stenosis or aneurysm is identified through the terminus. Left A1 segment is nondominant. A2 and visualized distal segments are unremarkable. Left M1, M2 and visualized distal segments are unremarkable. Posterior circulation: Intracranial vertebral arteries are right sided dominant. Left PICA origin is well visualized there is flow in the distal left PICA. Right PICA origin is well visualized there is flow in the distal right PICA. Basilar artery is unremarkable to its terminus. The right P1 segment is hypoplastic concordant with near right POLITICAL SCIENCE PROFESSOR. Normal flow in the distal right POLITICAL SCIENCE PROFESSOR. Left POLITICAL SCIENCE PROFESSOR is quite irregular, with focal 40-60% stenosis at the P2/P3 level (4, 421). There is distal flow. Limited evaluation of the dural venous sinuses and deep venous structures shows no obvious abnormality on this arterial phase study. IMPRESSION: Right M1 occlusion, as above and reported on the stroke head CT. 40-60% stenosis at the left P2/P3.
--- NOTE | 2018-08-12 19:54 | CT Report ---
Reason: L facial droop, L defecits Procedure Date: 08/12/2018 Accession Number: [id number] / [id number] Procedure: CT - ANGIO NECK W/WO CPT Code: FULL RESULT: EXAM: CTA NECK COMPARISON: HEAD W/O 11/25/2017 5:58 AM. CLINICAL HISTORY: Left facial droop, left deficits. TECHNIQUE: Axial CT images were obtained through the neck during arterial phase after intravenous iodinated contrast. 3 dimensional MIP reconstructions are created from axial data. Stenosis is measured by NASCET type criteria. In accordance with CT protocol optimization, one or more of the following dose reduction techniques were utilized for this exam: automated exposure control, adjustment of mA and/or KV based on patient size, or use of iterative reconstructive technique. FINDINGS: Visualized right upper chest shows no pulmonary nodules or masses. No pneumothorax. Visualized left upper chest shows no pulmonary nodule or masses. No pneumothorax. Visualized upper mediastinum shows no evident abnormality. There are poststernotomy findings. Larynx is normal. Epiglottis is normal. No severe bony canal stenosis. There is multilevel cervical spondylosis. At least moderate bony canal stenosis at C5-C6, including characterized by CT. No retropharyngeal fluid. Base of tongue is unremarkable. Arterial structures: Right carotid artery: Right common carotid artery originates normally from the brachiocephalic, is unremarkable to the bifurcation. Right internal carotid artery is unremarkable to the skull base. Left carotid artery: Left common carotid artery originates normally from the aortic arch, there is likely 30-40% origin stenosis. Left internal carotid artery shows no hemodynamically significant stenosis or dissection to the skull base. Posterior circulation: Right vertebral artery originates normally from the right subclavian artery, shows no evident hemodynamically significant stenosis or dissection to the dural ring. Left vertebral artery is nondominant, originates variantly from the aortic arch, no definite stenosis at the origin. IMPRESSION: No hemodynamically significant extracranial arterial stenosis or dissection. Additional findings as above.
== END 2018-08-12 17:46 | disposition short-term general hospital (02) ==
LOC: EDUNIT# → ED 16:42
DX: I63.411 Cerebral infarction due to embolism of right middle cerebral artery (principal); R29.716 NIHSS score 16; I10 Essential (primary) hypertension; G35 Multiple sclerosis; M35.3 Polymyalgia rheumatica
CPT/HCPCS: 36415; 37195; 51702; 70450; 70496; 70498; 80053; 83690; 85025; 85610; 93005; 96374; 96375; 99291; J2997; Q9967; 99284; 99285

== ENCOUNTER 2018-08-24 13:12 | Outpatient (CLI) | payer MEDICARE, OTHER ==
--- NOTE | 2018-08-25 15:34 | CT Report ---
Reason: CEREB INFRC D/T UNSP OCCLS OR STENOS OF RIGHT MID Procedure Date: 08/24/2018 Accession Number: [id number] / [id number] Procedure: CT - HEAD WO CPT Code: FULL RESULT: EXAM: CT HEAD EXAM DATE: 08/24/2018 01:24 PM. CLINICAL HISTORY: Cereb infarction d/t unspecified occlusion or stenosis of right mid. COMPARISON: CT HEAD WITHOUT CONTRAST 08/13/2018 5:40 PM MR BRAIN WITHOUT CONTRAST 08/12/2018 10:49 PM. TECHNIQUE: Multiaxial CT images were obtained from the foramen magnum to the vertex. Reformats: Sagittal and coronal. IV contrast: None. In accordance with CT protocol optimization, one or more of the following dose reduction techniques were utilized for this exam: automated exposure control, adjustment of mA and/or KV based on patient size, or use of iterative reconstructive technique. FINDINGS: Parenchyma: There is gyriform hyperdensity in the right MCA distribution with underlying hypodensity of white matter consistent with recent infarct. This may represent petechial hemorrhage without jeremi hematoma. Extraaxial Spaces: Normal for age. No subdural or epidural collections identified. Ventricles: Normal in size and position. Sinuses and Orbits: Imaged paranasal sinuses, orbits, and mastoids show no significant abnormality. Bones: No evidence of fracture or calvarial defect. Other: None. IMPRESSION: Gyriform hyperdensity in the right MCA distribution in the setting of recent infarction, possibly petechial hemorrhage without jeremi hematoma detected. [facility] The call report notification system was initiated by Dr. Evelio Orozco at 03:27 PM on 08/25/2018. ADDENDUM: 08/25/18 16:06 The above call report findings were discussed with Dr. Geller by Dr. Evelio Orozco at 04:06 PM on 08/25/2018.
== END 2018-08-24 13:13 | disposition home or self-care (01) ==
LOC: DI 13:12
PROVIDERS: ATTEND Physical Medicine & Rehabilitation
DX: I63.511 Cerebral infarction due to unspecified occlusion or stenosis of right middle cerebral artery (principal)
CPT/HCPCS: 70450

== ENCOUNTER 2018-08-31 10:00 | Outpatient (CLI) | payer MEDICARE, OTHER | END 2018-08-31 10:01 | disposition home or self-care (01) | LOC: DI 10:00 | PROVIDERS: ATTEND Internal Medicine Cardiovascular Disease | DX: R06.09 Other forms of dyspnea (principal); I08.0 Rheumatic disorders of both mitral and aortic valves | CPT/HCPCS: 93306 ==

== ENCOUNTER 2018-09-17 00:11 | Emergency (ER) | payer MEDICARE, OTHER ==
--- NOTE | 2018-09-17 00:35 | ED Physician Documentation ---
History of Present Illness - Stated complaint Stated Complaint: SKIPPING HEART - Chief complaint Chief Complaint: Cardiac - History obtained from History obtained from: Patient - History of Present Illness Timing: Today - Additonal information Additional information: This is a 72-year-old woman who had a stroke about 2 weeks ago was treated with TPA here in the emergency department,Transferred to [facility] and discharged on Coumadin. They have been checking her blood pressure fastidiously twice a day and tonight her heart rate was "all over the place". Her became very concerned because he her INR was 3.1 on Tuesday, they tried to contact her primary care provider to adjust the dosing on the Coumadin but never received a phone call back so he had her reduce the dosing and the INR has not been retested. Patient herself was completely unaware that she was in A. fib. She has no history of A. fib. She denies chest pain or shortness of breath. She has not felt dizzy or nauseous. Her did give her an additional 50 mg of atenolol when they noted this around 7:00 tonight when her heart rate had come down and 5 hours and was still erratic that is when they decided to come in. She normally takes atenolol 50 mg morning and night.The only residual deficit from her stroke is some "fuzziness" in her brain and thinking. She also has MS and over the past year has had increasing difficulty with walking and more brain fog. She takes prednisone for PMR. Review of Systems Constitutional: denies: Fever Eyes: reports: Other (Patient wears glasses) Ears: denies: Ear pain Nose: denies: Rhinorrhea / runny nose Throat: denies: Sore throat Cardiac: denies: Chest pain / pressure, Palpitations, Pedal edema Respiratory: denies: Dyspnea, Cough GI: denies: Abdominal Pain, Nausea, Vomiting : denies: Dysuria Skin: denies: Rash Neurologic: denies: Generalized weakness, Focal weakness, Syncope, Confused, LOC Endocrine: reports: Other (She is not diabetic) PD PAST MEDICAL HISTORY - Past Medical History Cardiovascular: Hypertension, High cholesterol, Coronary artery disease, Atrial fibrillation, Arrhythmia Respiratory: Asthma Neuro: Multiple sclerosis : Other Psych: Claustrophobia Musculoskeletal: Osteoarthritis, Fibromyalgia, Chronic back pain - Past Surgical History Past Surgical History: Yes 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 Cardiovascular: CABG - Present Medications Home Medications: Ambulatory Orders Medication Instructions Recorded Confirmed Fluoxetine HCl [Prozac] 10 mg PO DAILY 01/16/14 08/12/18 Losartan [Cozaar] 100 mg PO DAILY 01/16/14 08/12/18 Omeprazole [Prilosec] 20 mg PO DAILY 01/16/14 08/12/18 Atenolol 75 mg PO DAILY 08/12/14 08/12/18 Atorvastatin Calcium 20 mg DAILY 06/29/16 08/12/18 Albuterol Sulf [Ventolin Hfa 1 - 2 puffs INH Q4HR PRN #1 inhaler 12/01/17 08/12/18 Inhaler] Prednisone 5 mg PO DAILY 08/12/18 08/12/18 - Allergies Allergies/Adverse Reactions: Allergies Allergy/AdvReac Type Severity Reaction Status Date / Time amoxicillin trihydrate * Allergy Rash Verified 09/17/18 00:21 [From Augmentin] nitrofurantoin Allergy Rash Verified 09/17/18 00:21 macrocrystalline * [From Macrodantin] potassium clavulanate * Allergy Rash Verified 09/17/18 00:21 [From Augmentin] lisinopril AdvReac Unknown Verified 09/17/18 00:21 - Social History Does the pt smoke?: No Smoking Status: Never smoker Does the pt drink ETOH?: Yes Does the pt have substance abuse?: No - Immunizations Immunizations are current?: Yes - POLST Patient has POLST: Yes PD ED PE NORMAL - Vitals Vital signs reviewed: Yes - General General: Alert and oriented X 3, No acute distress, Well developed/nourished - HEENT HEENT: Atraumatic, Moist mucous membranes - Neck Neck: No adenopathy, Thyroid normal - Cardiac Cardiac: RRR, No murmur - Respiratory Respiratory: No respiratory distress, Clear bilaterally - Abdomen Abdomen: Normal bowel sounds, Soft, Non tender - Derm Derm: Normal color, Warm and dry, No rash - Extremities Extremities: No deformity, No edema - Neuro Neuro: Alert and oriented X 3, 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, Normal speech, Other (No gross neurological deficit.) - Psych Psych: Normal mood, Normal affect Results - Vitals Vitals: Vital Signs - 24 hr 09/17/18 09/17/18 09/17/18 00:18 00:37 01:07 Temperature 36.2 C L Heart Rate 136 H 99 54 L Respiratory 18 13 Rate Blood Pressure 136/88 H 174/84 H O2 Saturation 97 98 98 09/17/18 01:30 Temperature Heart Rate 52 L Respiratory 12 Rate Blood Pressure 188/79 H O2 Saturation 97 Oxygen O2 Source Room air - EKG (time done) 0028 Rate: Rate (enter#) Rhythm: Atrial flutter, Atrial fibrillation Ischemia: Normal ST segments 0100 Rate: Rate (enter#) Rhythm: Sinus bradycardia Shattuck: Normal Intervals: Normal MT QRS: Poor R wave progression Ischemia: Normal ST segments Compare to prior EKG: Changed from prior EKG Computer interpretation: Agree with computer - Labs Labs: Laboratory Tests 09/17/18 09/17/18 09/17/18 00:40 00:40 00:40 WBC 8.9 RBC 4.11 L Hgb 13.4 Hct 41.7 MCV 101.5 H MCH 32.6 H MCHC 32.1 RDW 13.1 Plt Count 241 MPV 11.0 H Neut # (Auto) 5.2 Lymph # (Auto) 2.8 [place] # (Auto) 0.7 Eos # (Auto) 0.1 Baso # (Auto) 0.1 Absolute Nucleated RBC 0.00 Nucleated RBC % 0.0 PT INR Sodium 141 Potassium 4.1 Chloride 102 Carbon Dioxide 27 Anion Gap 12.0 BUN 13 Creatinine 0.7 Estimated GFR (MDRD) 82 L Glucose 122 H Calcium 9.0 Troponin I < 0.04 09/17/18 01:12 WBC RBC Hgb Hct MCV MCH MCHC RDW Plt Count MPV Neut # (Auto) Lymph # (Auto) [place] # (Auto) Eos # (Auto) Baso # (Auto) Absolute Nucleated RBC Nucleated RBC % PT 29.3 H INR 2.6 H Sodium Potassium Chloride Carbon Dioxide Anion Gap BUN Creatinine Estimated GFR (MDRD) Glucose Calcium Troponin I PD MEDICAL DECISION MAKING - ED course Complexity details: reviewed results, d/w patient, d/w family ED course: By the time I went in the room to examine the patient she had converted to sinus rhythm with a rate in the 50s. Potassium is normal, she is not anemic. Her INR is 2.6. Troponin is normal. Her was reassured that she could not develop a clot in that short period of time especially with her INR at 2.6. Her blood pressures a little high tonight some of that I think is the size of the cuff. We should have them use their monitor at home to continue monitoring her blood pressure. Departure - Departure Disposition: , Self Care Clinical Impression: Atrial fibrillation Qualifiers: Atrial fibrillation type: paroxysmal Qualified Code(s): I48.0 - Paroxysmal atrial fibrillation Condition: Good Instructions: ED Afib Follow-Up: Matteo Osborne MD [Primary Care Provider] - Feliberto Kruse MD [Provider Admit Priv/Credential] - Comments: Contact your doctor this week and the mash processing operator to let him know that she was here with an episode of A. fib that converted after given the additional dose of Atenolol. Return if she has any chest pain, shortness of breath, dizziness or other problems arise.
[2018-09-17 01:05] LABS: BASOPHILS # (AUTO) 0.1 10^3/uL (0.0-0.1); BASOPHILS % (AUTO) 0.8 %; CREATININE 0.7 mg/dL (0.4-1.0); EOSINOPHILS # (AUTO) 0.1 10^3/uL (0.0-0.7); EOSINOPHILS % (AUTO) 1.6 %; HGB - HEMOGLOBIN 13.4 g/dL (12.0-16.0); LYMPHOCYTES # (AUTO) 2.8 10^3/uL (1.5-3.5); LYMPHOCYTES % (AUTO) 31.7 %; MEAN CORPUSCULAR HEMOGLOBIN 32.6 pg (27.0-31.0); MEAN CORPUSCULAR HGB CONC 32.1 g/dL (32.0-36.0); MEAN CORPUSCULAR VOLUME 101.5 fL (81.0-99.0); MONOCYTES # (AUTO) 0.7 10^3/uL (0.0-1.0); MONOCYTES % (AUTO) 7.6 %; NEUTROPHILS # (AUTO) 5.2 10^3/uL (1.5-6.6); NEUTROPHILS % (AUTO) 58.1 %; PLT - PLATELET COUNT 241 10^3/uL (130-450); RED BLOOD COUNT 4.11 10^6/uL (4.20-5.40); RED CELL DISTRIBUTION WIDTH 13.1 % (12.0-15.0); WHITE BLOOD COUNT 8.9 x10^3/uL (4.8-10.8)
[2018-09-17 01:23] LABS: INR 2.6 (0.8-1.2); PT - PROTHROMBIN TIME 29.3 secs (9.9-12.6)
[2018-09-17 01:48] VITALS: BP 188/79
== END 2018-09-17 01:56 | disposition home or self-care (01) ==
LOC: ED 00:11
DX: I48.0 Paroxysmal atrial fibrillation (principal); I48.92 Unspecified atrial flutter; Z79.01 Long term (current) use of anticoagulants; I44.39 Other atrioventricular block; I10 Essential (primary) hypertension; I25.10 Atherosclerotic heart disease of native coronary artery without angina pectoris; Z95.1 Presence of aortocoronary bypass graft; Z86.73 Personal history of transient ischemic attack (TIA), and cerebral infarction without residual deficits; G35 Multiple sclerosis; M35.3 Polymyalgia rheumatica; Z79.52 Long term (current) use of systemic steroids
CPT/HCPCS: 36415; 80048; 84484; 85025; 85610; 93005; 99283; 99284

== ENCOUNTER 2018-09-24 18:37 | Emergency (ER) | payer MEDICARE, OTHER ==
--- NOTE | 2018-09-24 18:49 | ED Physician Documentation ---
History of Present Illness - Stated complaint Stated Complaint: GLF - Chief complaint Chief Complaint: Trauma Hd/Nk - History obtained from History obtained from: Patient - History of Present Illness Timing: Prior to arrival - Additonal information Additional information: Patient is a 72-year-old female on anticoagulation of Coumadin given prior cardiac surgery and stroke presenting with bruising and swelling to right face after she excellently fell at about noon today walking her dog. Patient reports that she tripped over a curb and landed on her right knee and right face breaking her glasses. Patient complains of swelling, bruising, and pain surrounding the right eye without loss of vision. Patient denies loss of consciousness, headache, neck pain, back pain. She also denies chest rib pain, abdominal pain, urinary changes, stool changes, or vomiting. Patient denies extremity injury except for abrasions to right knee which are now covered with Band-Aids after being cleaned by her . Tetanus current. No other improving or worsening factors noted. Review of Systems Eyes: denies: Loss of vision Nose: denies: Epistaxis Throat: denies: Dental pain / toothache Cardiac: denies: Chest pain / pressure Respiratory: denies: Dyspnea GI: denies: Abdominal Pain, Nausea, Vomiting, Diarrhea : denies: Dysuria Skin: reports: Abrasion (s) Musculoskeletal: reports: Extremity pain. denies: Neck pain, Back pain Neurologic: reports: Head injury. 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 Cardiovascular: CABG - Present Medications Home Medications: Ambulatory Orders Medication Instructions Recorded Confirmed Fluoxetine HCl [Prozac] 10 mg PO DAILY 01/16/14 08/12/18 Losartan [Cozaar] 100 mg PO DAILY 01/16/14 08/12/18 Omeprazole [Prilosec] 20 mg PO DAILY 01/16/14 08/12/18 Atenolol 75 mg PO DAILY 08/12/14 08/12/18 Atorvastatin Calcium 20 mg DAILY 06/29/16 08/12/18 Albuterol Sulf [Ventolin Hfa 1 - 2 puffs INH Q4HR PRN #1 inhaler 12/01/1708/12 Inhaler] Prednisone 5 mg PO DAILY 08/12/18 08/12/18 - Allergies Allergies/Adverse Reactions: Allergies Allergy/AdvReac Type Severity Reaction Status Date / Time amoxicillin trihydrate * Allergy Rash Verified 09/24/18 18:43 [From Augmentin] nitrofurantoin Allergy Rash Verified 09/24/18 18:43 macrocrystalline * [From Macrodantin] potassium clavulanate * Allergy Rash Verified 09/24/18 18:43 [From Augmentin] lisinopril AdvReac Unknown Verified 09/24/18 18:43 - Social History Does the pt smoke?: No Smoking Status: Never smoker Does the pt drink ETOH?: Yes Does the pt have substance abuse?: No - Immunizations Immunizations are current?: Yes - POLST Patient has POLST: Yes PD ED PE NORMAL - General General: Alert and oriented X 3, No acute distress, Well developed/nourished - HEENT HEENT: PERRL, EOMI (Gross visual acuity intact. No nystagmus.), Moist mucous membranes, Pharynx benign, Dentition benign. No: Atraumatic (Significant swelling and ecchymosis to right periorbital area with tenderness to the touch although no facial bone instability. No other raccoon eyes, red signs,Epistaxis or intraoral trauma noted) - Neck Neck: No bony TTP - Cardiac Cardiac: RRR, No murmur - Respiratory Respiratory: No respiratory distress, Clear bilaterally - Abdomen Abdomen: Normal bowel sounds, Soft, Non tender, Non distended - Back Back: No spinal TTP - Derm Derm: Normal color, Warm and dry, No rash, Other (Small superficial abrasions to right knee currently bandaged without complication.) - Extremities Extremities: No deformity, No tenderness to palpate - Neuro Neuro: Alert and oriented X 3, No motor deficit, No sensory deficit - Psych Psych: Normal mood, Normal affect Results - Vitals Vitals: Vital Signs - 24 hr 09/24/18 18:39 Temperature 36.3 C L Heart Rate 59 L Respiratory 19 Rate Blood Pressure 155/80 H O2 Saturation 96 Oxygen O2 Source Room air - Labs Labs: Laboratory Tests 09/24/18 09/24/18 09/24/18 18:52 18:52 18:52 WBC 7.8 RBC 3.77 L Hgb 12.6 Hct 37.9 MCV 100.5 H MCH 33.4 H MCHC 33.2 RDW 12.8 Plt Count 227 MPV 10.9 H Neut # (Auto) 4.7 Lymph # (Auto) 2.3 [place] # (Auto) 0.6 Eos # (Auto) 0.1 Baso # (Auto) 0.1 Absolute Nucleated RBC 0.00 Nucleated RBC % 0.0 PT 22.4 H INR 2.0 H APTT 28.5 Sodium 142 Potassium 3.5 Chloride 105 Carbon Dioxide 25 Anion Gap 12.0 BUN 9 Creatinine 0.6 Estimated GFR (MDRD) 98 Glucose 118 H Calcium 9.1 Total Bilirubin 0.5 AST 21 ALT 19 Alkaline Phosphatase 36 L Total Protein 7.3 Albumin 4.0 Globulin 3.3 Albumin/Globulin Ratio 1.2 Lipase 34 PD MEDICAL DECISION MAKING - ED course Complexity details: reviewed old records, reviewed results, re-evaluated patient, considered differential, d/w patient, d/w family ED course: Patient presenting after mechanical fall and only visible trauma to her right periorbital area and right knee. Patient has superficial abrasions to the right knee that will not require closure. Tetanus does not require updating. Do have concern for possible facial fracture, skull fracture, intracranial injury or bleed given that patient is on Coumadin, age, and mechanism. Obtained CT imaging of head and face which did not find evidence of fracture or acute pathology, but did comment on known infarction. Screening lab work found evidence of INR at 2 which is expected and appropriate. Remainder screening lab work otherwise unremarkable. Discussed results and recommendations with patient including findings on CT and INR level. Also discussed evolving infarction on CT. Discussed holding versus not holding warfarin at this time, return p recautions, other supportive cares, and primary care follow-up. Patient and her voiced understanding and are comfortable with discharge plan. Departure - Departure Disposition: 01 Home, Self Care Clinical Impression: Contusion Qualifiers: Encounter type: initial encounter Contusion area: head Contusion of head detail: eyelid Condition: Good Instructions: ED Contusion Eye Follow-Up: Matteo Osborne MD [Primary Care Provider] - Within 3 Days Comments: Please continue home medications as previously instructed. If you experience worsening bruising or bleeding, particularly surrounding the eye, recommend holding your warfarin. Please contact your primary care physician tomorrow to schedule follow-up in the next 2 to 3 days and if you are considering holding her warfarin, please contact your primary care physician to discuss this as well. Recommend ice application to area of swelling and sleeping sitting up if possible. Return to ED sooner if experience worsening symptoms or have other concerns.
[2018-09-24 19:02] LABS: BASOPHILS # (AUTO) 0.1 10^3/uL (0.0-0.1); BASOPHILS % (AUTO) 0.9 %; EOSINOPHILS # (AUTO) 0.1 10^3/uL (0.0-0.7); EOSINOPHILS % (AUTO) 1.5 %; HGB - HEMOGLOBIN 12.6 g/dL (12.0-16.0); LYMPHOCYTES # (AUTO) 2.3 10^3/uL (1.5-3.5); MEAN CORPUSCULAR HEMOGLOBIN 33.4 pg (27.0-31.0); MEAN CORPUSCULAR HGB CONC 33.2 g/dL (32.0-36.0); MEAN CORPUSCULAR VOLUME 100.5 fL (81.0-99.0); MEAN PLATELET VOLUME 10.9 fL (7.9-10.8); MONOCYTES # (AUTO) 0.6 10^3/uL (0.0-1.0); MONOCYTES % (AUTO) 7.9 %; NEUTROPHILS # (AUTO) 4.7 10^3/uL (1.5-6.6); NEUTROPHILS % (AUTO) 60.4 %; PLT - PLATELET COUNT 227 10^3/uL (130-450); RED BLOOD COUNT 3.77 10^6/uL (4.20-5.40); RED CELL DISTRIBUTION WIDTH 12.8 % (12.0-15.0); WHITE BLOOD COUNT 7.8 x10^3/uL (4.8-10.8)
[2018-09-24 19:08] LABS: PT - PROTHROMBIN TIME 22.4 secs (9.9-12.6)
[2018-09-24 19:15] LABS: PARTIAL THROMBOPLASTIN TIME 28.5 secs (24.9-33.3)
[2018-09-24 19:20] LABS: ALBUMIN/GLOBULIN RATIO 1.2 (1.0-2.2); BILIRUBIN,TOTAL 0.5 mg/dL (0.2-1.0); CALCIUM 9.1 mg/dL (8.5-10.3); CREATININE 0.6 mg/dL (0.4-1.0); TOTAL PROTEIN 7.3 g/dL (6.7-8.2)
--- NOTE | 2018-09-24 19:42 | CT Report ---
Reason: fall onto face, on coumadin Procedure Date: 09/24/2018 Accession Number: [id number] / [id number] Procedure: CT - HEAD WO CPT Code: FULL RESULT: EXAM: CT HEAD EXAM DATE: 09/24/2018 07:06 PM. CLINICAL HISTORY: Fall onto face while walking dog. On coumadin. COMPARISON: HEAD W/O 08/24/2018 1:20 PM. TECHNIQUE: Multiaxial CT images were obtained from the foramen magnum to the vertex. Reformats: Sagittal and coronal. IV contrast: None. In accordance with CT protocol optimization, one or more of the following dose reduction techniques were utilized for this exam: automated exposure control, adjustment of mA and/or KV based on patient size, or use of iterative reconstructive technique. FINDINGS: Parenchyma: No intraparenchymal hemorrhage. Widespread right MCA territory low density compatible with evolving infarction. No evidence of mass, midline shift, or CT findings of acute infarction. Fernandes-white differentiation is distinct. Stable chronic microangiopathic white matter changes are evident. Extraaxial Spaces: Normal for age. No subdural or epidural collections identified. Ventricles: The ventricles and cortical sulci are enlarged, consistent with age-related tissue loss. Sinuses and orbits: Imaged paranasal sinuses, orbits, and mastoids show no significant abnormality. Bones: No evidence of fracture or calvarial defect. Other: None. IMPRESSION: Stable age-related cortical atrophic changes and large area of right MCA territory low density compatible with evolving infarction without evidence of acute intracranial abnormality. [facility]
--- NOTE | 2018-09-24 19:46 | CT Report ---
Reason: fall onto face, on coumadin Procedure Date: 09/24/2018 Accession Number: [id number] / [id number] Procedure: CT - MAXILLOFACIAL WO CPT Code: FULL RESULT: EXAM: CT MAXILLOFACIAL WITHOUT CONTRAST EXAM DATE: 09/24/2018 07:06 PM. CLINICAL HISTORY: Fall onto face while walking dog. On coumadin. COMPARISONS: HEAD W/O 08/24/2018 1:20 PM. TECHNIQUE: Thin-section axial images were acquired of the face without contrast. Post-processing: Coronal and sagittal reformats. Other: None. In accordance with CT protocol optimization, one or more of the following dose reduction techniques were utilized for this exam: automated exposure control, adjustment of mA and/or KV based on patient size, or use of iterative reconstructive technique. FINDINGS: Soft Tissue: Soft tissue fat stranding in the right cheek with 7 x 14 x 20 mm soft tissue hematoma. Orbits: Symmetric and unremarkable. Bones: No fracture or bone lesion. Temporomandibular Joints: Left mandibular head subluxed forward. Sinuses: Normal. No mucosal thickening or fluid levels. Other: None. IMPRESSION: 1. Right cheek bruising with small hematoma. 2. No fracture identified. 2. Left mandibular head subluxed forward. [facility]
[2018-09-24 20:14] VITALS: BP 157/76
== END 2018-09-24 20:15 | disposition home or self-care (01) ==
LOC: ED 18:37
DX: S00.11XA Contusion of right eyelid and periocular area, initial encounter (principal); S00.83XA Contusion of other part of head, initial encounter; S80.211A Abrasion, right knee, initial encounter; W01.0XXA Fall on same level from slipping, tripping and stumbling without subsequent striking against object, initial encounter; Y93.K1 Activity, walking an animal; Z86.73 Personal history of transient ischemic attack (TIA), and cerebral infarction without residual deficits; I48.91 Unspecified atrial fibrillation; Z79.01 Long term (current) use of anticoagulants; I10 Essential (primary) hypertension; G35 Multiple sclerosis
CPT/HCPCS: 36415; 70450; 70486; 80053; 83690; 85025; 85610; 85730; 99284

== ENCOUNTER 2018-11-13 13:48 | Outpatient (CLI) | payer MEDICARE, OTHER ==
--- NOTE | 2018-11-13 14:41 | SLEEP CARE CONSULTATION ---
Information from patient questionnaire entered by Halima Gamboa. I have reviewed and concur with the information entered by Halima Gamboa. This document represents the service I personally performed and the decisions made by me, Manuel Ang MD, [facility]. History of Present Illness Reason for Visit: New patient Chief Complaint: reports: Unrefreshed sleep, Fatigue Duration of Symptoms: years Usual bedtime: 9:00 pm Time it takes to fall asleep: 60 minutes Snores at night: Yes (sometimes) Observed to quit breathing while asleep: No Sleeps alone due to snoring: Yes Number of times waking at night: 2-3 Reasons for waking at night: reports: Bathroom Toss, Turn, or Twitch while sleeping: No Recalls having dreams: Yes Usually gets out of bed at: 9 am Feels refreshed in the morning: No Morning headache: Yes Sleepy or fatigued during the day: Yes Ever fallen asleep while driving: No Takes day naps: No Prior sleep studies: No Additional HPI information: I had the pleasure of seeing Ms. Man today regarding the possibility of her having a sleep disorder. As you know, she is a 72 year old lady who complains of fatigue for the past 30 years. She has multiple sclerosis and a stroke 3 months ago. The patient tells me that she normally goes to bed around 9 pm, and it takes her approximately 60 minutes to fall asleep. She has not been told that she snores loudly or irregularly at night. She has never been observed to stop breathing in her sleep. Her spouse sleeps in the same bed. She can recall waking up on the average of 2 - 3 times during the night. Most of the time she wakes up because of having to use the bathroom. She has never awakened occasionally because of her own snoring, choking, or having to gasp for air. There is not a lot of tossing and turning in her sleep. No somniloquy (sleep talking) or somnambulism (sleep walking). In the morning she usually gets up out of the bed around 9 a.m. feeling refreshed and rested. She usually does not have a morning headache. During the day she complains of feeling fatigued but not particularly sleepy. Her score on [place] Sleepiness Scale is 6 out of 24. She has never fallen asleep while driving nor has had any accident due to sleepiness. She no longer drives. She usually takes 30-minute nap during the day. She reports having impaired concentration during the day. 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 Patient is and lives in [place]. Have you smoked in the past 12 months: Yes Cigarettes per day (20/pack): 20 Years of smokin Quit date: 11/07/1983 Smoking Pack Years: 20.0 Alcohol use: Yes Alcohol amount and frequency: daily Caffeine use: No Family History Family history of sleep disordered breathing: Yes Allergies and Home Medications Drug allergies reviewed: Yes Home medication list reviewed: Yes Review of Systems Weight loss over past 5 years: 10 Cardiovascular: reports: high blood pressure Respiratory: reports: shortness of breath Gastrointestinal: reports: difficulty swallowing Urinary: reports: incontinence, urgency Neurological: reports: head trauma, disorientation, gait or balance problems Psychiatric: reports: anxiety Ear/Nose/Throat: reports: nasal congestion Endocrine: reports: excessive thirst, increased urination Musculoskeletal: reports: mobility problems Immunologic: reports: itching Physical Exam Vital signs obtained and entered by: Dr. Ang Blood Pressure: 140/60 Cuff size: long Heart Rate: 57 O2 Saturation: 96 Height: 5 ft 3 in Weight (kg): 132 lb Body Mass Index: 23.3 BMI Classification: Healthy weight Neck circumference: 13 Mood/affect: normal HEENT: No craniofacial malformation Nostrils: patent to airflow Turbinates: normal Septum: midline Mouth and throat: narrow oropharynx Soft palate: long Hard palate: normal Uvula: normal Uvula visualization: 50% Mallampati Class II Tongue: normal in size Tonsils: absent bilaterally Chin and jaw: normal size and position Neck: normal w/o lymphadenopathy or thyromegaly Heart: regular rate and rhythm Lungs: clear bilaterally Abdomen: soft, non-tender Extremities: no edema or clubbing Neurologic: intact, no focal deficits, other: (visual field defect) Impression and Plan I spent 100% of this [15][30] minute visit face to face with the patient with greater than 50% of this was spent time counseling the patient and coordination of care.
[2018-11-13 14:42] VITALS: BP 140/60
== END 2018-11-13 13:49 | disposition home or self-care (01) ==
LOC: SC 13:48
PROVIDERS: ATTEND Internal Medicine Pulmonary Disease
DX: G47.8 Other sleep disorders (principal); R06.83 Snoring; R41.89 Other symptoms and signs involving cognitive functions and awareness
CPT/HCPCS: 99203; G0463; 99212

== ENCOUNTER 2019-01-18 10:36 | Emergency (ER) | payer MEDICARE, OTHER ==
--- NOTE | 2019-01-18 11:05 | ED Physician Documentation ---
PD HPI CHEST PAIN - Stated complaint Stated Complaint: CP - Chief complaint Chief Complaint: Resp - History obtained from History obtained from: Patient, Family - History of Present Illness Timing - onset: How many weeks ago (2) Timing - onset during: Rest Timing - duration: Weeks (2) Timing - details: Intermittant, Other (worse with coughing.) Severity Comments: moderate, center of chest, no radiation Location: Other (mid chest) Radiation: Other (none) Improved by: Nothing Worsened by: Movement, Palpation, Other (coughing) Associated symptoms: Cough, Other (congestion) Similar symptoms before: Has not had sx before, Other (reports cough is sometimes productive of green sputum) Recently seen: Not recently seen - Treatment prior to arrival Treatment prior to arrival: she tried antibiotics a month ago with no improvement - Additional information Additional information: Pt states she has been coughing for a month and then for the last 2 weeks has had intermittent chest pain when coughing and soreness around the mid and L side of her chest and flank that is worse when coughing. Denies worsening with exertion. She hasn't taken anything for pain. Review of Systems Ten Systems: 10 systems reviewed and negative Constitutional: reports: Reviewed and negative Throat: reports: Reviewed and negative Cardiac: reports: Chest pain / pressure Respiratory: reports: Cough, Wheezing GI: reports: Reviewed and negative : reports: Reviewed and negative Skin: reports: Reviewed and negative Musculoskeletal: reports: Reviewed and negative Neurologic: reports: Reviewed and negative Endocrine: reports: Reviewed and negative Immunocompromised: reports: Reviewed and negative PD PAST MEDICAL HISTORY - Past Medical History Past Medical History: Yes Cardiovascular: Hypertension, High cholesterol, Coronary artery disease, Atrial fibrillation, Arrhythmia Respiratory: Asthma Neuro: Multiple sclerosis : Other Psych: Claustrophobia Musculoskeletal: Osteoarthritis, Fibromyalgia, Chronic back pain - Past Surgical History Past Surgical History: Yes 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 Cardiovascular: CABG - Present Medications Home Medications: Ambulatory Orders Medication Instructions Recorded Confirmed Fluoxetine HCl [Prozac] 10 mg PO DAILY 01/16/14 08/12/18 Losartan [Cozaar] 100 mg PO DAILY 01/16/14 08/12/18 Omeprazole [Prilosec] 20 mg PO DAILY 01/16/14 08/12/18 Atenolol 75 mg PO DAILY 08/12/14 08/12/18 Atorvastatin Calcium 20 mg DAILY 06/29/16 08/12/18 Albuterol Sulf [Ventolin Hfa 1 - 2 puffs INH Q4HR PRN #1 inhaler 12/01/17 08/12/18 Inhaler] Prednisone 5 mg PO DAILY 08/12/18 08/12/18 Benzonatate [Tessalon Perle] 100 - 200 mg PO TID PRN #30 capsule 01/18/19 - Allergies Allergies/Adverse Reactions: Allergies Allergy/AdvReac Type Severity Reaction Status Date / Time amoxicillin trihydrate * Allergy Rash Verified 01/18/19 10:58 [From Augmentin] nitrofurantoin Allergy Rash Verified 01/18/19 10:58 macrocrystalline * [From Macrodantin] potassium clavulanate * Allergy Rash Verified 01/18/19 10:58 [From Augmentin] lisinopril AdvReac Unknown Verified 01/18/19 10:58 - Social History Does the pt smoke?: No Smoking Status: Never smoker Does the pt drink ETOH?: Yes Does the pt have substance abuse?: No - Immunizations Immunizations are current?: Yes - POLST Patient has POLST: Yes PD ED PE NORMAL - Vitals Vital signs reviewed: Yes - General General: Alert and oriented X 3, No acute distress, Well developed/nourished - HEENT HEENT: Atraumatic, Pharynx benign - Neck Neck: Supple, no meningeal sign - Cardiac Cardiac: RRR, No murmur, No gallop, No rub, Strong equal pulses - Respiratory Respiratory: No respiratory distress, Clear bilaterally - Abdomen Abdomen: Soft, Non tender, Non distended - Female Female : Deferred - Rectal Rectal: Deferred - Derm Derm: Normal color, No rash - Extremities Extremities: No deformity, No tenderness to palpate, Normal ROM s pain, No edema, No calf tenderness / cord - Neuro Neuro: Alert and oriented X 3 Eye Opening: Spontaneous Motor: Obeys Commands Verbal: Oriented GCS Score: 15 - Psych Psych: Normal mood, Normal affect PD ED PE EXPANDED - Cardiac Cardiac: Radial strong equal, Chest wall TTP (left lateral chest wall and mid chest, reproduces symptoms ) Results - Vitals Vitals: Oxygen O2 Source Room air - EKG (time done) 10:58 Rate: Rate (enter#) (62) Rhythm: NSR [place]: Normal Intervals: Normal HI, QRS normal QRS: Normal Ischemia: Normal ST segments Computer interpretation: Agree with computer - Labs Labs: Laboratory Tests 01/18/19 01/18/19 01/18/19 12:06 12:06 12:06 WBC 8.8 RBC 3.80 L Hgb 12.6 Hct 37.7 MCV 99.2 H MCH 33.2 H MCHC 33.4 RDW 13.0 Plt Count 238 MPV 10.6 Neut # (Auto) 7.3 H Lymph # (Auto) 1.0 L Stark # (Auto) 0.4 Eos # (Auto) 0.1 Baso # (Auto) 0.1 Absolute Nucleated RBC 0.00 Nucleated RBC % 0.0 Sodium 141 Potassium 3.5 Chloride 102 Carbon Dioxide 29 Anion Gap 10.0 BUN 18 Creatinine 0.6 Estimated GFR (MDRD) 98 Glucose 135 H Calcium 8.9 Troponin I High Sens 4.2 - Rads (name of study) CXR Radiology: EMP read contemporaneously (consistent with bronchitis), See rad report PD MEDICAL DECISION MAKING - ED course Complexity details: reviewed old records, reviewed results, re-evaluated patient, considered differential, d/w patient, d/w family ED course: ddx- bronchitis, pneumonia, chest wall strain, costochondritis, PE, ACS, TAD 73 y/o F with hx and exam as documented. Chest congestion, cough, ongoing for months with chest wall pain with coughing and palpation consistent with chest wall strain. Her ekg, troponin are nonischemic. Doubt ACS. Her CXR is consistent with bronchitis. No evidence of pneumonia, no indication for antibiotics at this time. Pt is afebrile. This may be later phase of pertussis given her persistent cough. Given analgesics for pain. Advised cough suppressants but pt is otherwise stable for discharge with outpt f/u. Departure - Departure Disposition: 01 Home, Self Care Clinical Impression: Bronchitis Chest wall muscle strain Qualifiers: Encounter type: initial encounter Qualified Code(s): S29.011A - Strain of muscle and tendon of front wall of thorax, initial encounter Condition: Stable Record reviewed to determine appropriate education?: Yes Instructions: Bronchitis Acute Dc Follow-Up: Matteo Osborne MD [Primary Care Provider] - As Needed Prescriptions: Benzonatate [Tessalon Perle] 100 - 200 mg PO TID PRN #30 capsule PRN Reason: Cough Comments: Your labs and ekg and heart enzymes today were all normal. Your CXR shows bronchitis. But no evidence of pneumonia. Your cough may persistent for several weeks or even a couple of months. You can try the prescribed tessalon perles for cough and sore throat and tea with honey also is a good treatment for cough. Take tylenol as needed for chest soreness from coughing. Follow up with your regular doctor for a recheck of your symptoms. Discharge Date/Time: 01/18/19 13:08
--- NOTE | 2019-01-18 11:48 | XRAY Report ---
Reason: cough Procedure Date: 01/18/2019 Accession Number: [id number] / [id number] Procedure: XR - Chest 2 View X-Ray CPT Code: 38429 Final Report FULL RESULT: EXAM: CHEST RADIOGRAPHY EXAM DATE: 01/18/2019 11:17 AM. CLINICAL HISTORY: Cough. COMPARISON: CHEST AP (VG) 08/12/2018 8:44 PM. TECHNIQUE: 2 views. FINDINGS: Lungs/Pleura: Central bronchial wall thickening noted. No superimposed focal airspace consolidation. No pleural effusion or pneumothorax. Mediastinum: Heart and mediastinal contours are unremarkable. Mediastinal Clips are seen. Other: None. IMPRESSION: 1. Central bronchial wall thickening could reflect underlying reactive airways or bronchitis. No evidence of pneumonia. 2. Normal heart size. RADIA
[2019-01-18 12:15] LABS: BASOPHILS # (AUTO) 0.1 10^3/uL (0.0-0.1); BASOPHILS % (AUTO) 0.8 %; EOSINOPHILS # (AUTO) 0.1 10^3/uL (0.0-0.7); EOSINOPHILS % (AUTO) 0.6 %; HGB - HEMOGLOBIN 12.6 g/dL (12.0-16.0); LYMPHOCYTES % (AUTO) 11.5 %; MEAN CORPUSCULAR HEMOGLOBIN 33.2 pg (27.0-31.0); MEAN CORPUSCULAR HGB CONC 33.4 g/dL (32.0-36.0); MEAN CORPUSCULAR VOLUME 99.2 fL (81.0-99.0); MEAN PLATELET VOLUME 10.6 fL (7.9-10.8); MONOCYTES # (AUTO) 0.4 10^3/uL (0.0-1.0); MONOCYTES % (AUTO) 4.3 %; NEUTROPHILS # (AUTO) 7.3 10^3/uL (1.5-6.6); NEUTROPHILS % (AUTO) 82.6 %; PLT - PLATELET COUNT 238 10^3/uL (130-450); WHITE BLOOD COUNT 8.8 x10^3/uL (4.8-10.8)
[2019-01-18 12:25] LABS: CALCIUM 8.9 mg/dL (8.5-10.3); CREATININE 0.6 mg/dL (0.4-1.0)
[2019-01-18 13:07] VITALS: BP 153/81
== END 2019-01-18 13:08 | disposition home or self-care (01) ==
LOC: ED 10:36
DX: J40 Bronchitis, not specified as acute or chronic (principal); S29.011A Strain of muscle and tendon of front wall of thorax, initial encounter; X58.XXXA Exposure to other specified factors, initial encounter; I10 Essential (primary) hypertension; I25.10 Atherosclerotic heart disease of native coronary artery without angina pectoris; Z95.1 Presence of aortocoronary bypass graft; G35 Multiple sclerosis
CPT/HCPCS: 36415; 71046; 80048; 84484; 85025; 93005; 99284

== ENCOUNTER 2019-06-29 11:04 | Emergency (ER) | payer MEDICARE, OTHER ==
[2019-06-29 11:21] VITALS: BP 148/69
--- NOTE | 2019-06-29 12:04 | XRAY Report ---
Reason: GLF left hand pain Procedure Date: 06/29/2019 Accession Number: [id number] / [id number] Procedure: XR - Hand 3 View LT CPT Code: Addended Final Report FULL RESULT: EXAM: LEFT HAND RADIOGRAPHY EXAM DATE: 06/29/2019 11:35 AM. CLINICAL HISTORY: GLF left hand pain.FOJACK. COMPARISON: WRIST 3 VIEW LT 11/30/2017 9:35 AM. TECHNIQUE: 3 views. FINDINGS: Bones: Normal. No fractures or bone lesions. Joints: Moderate osteoarthritis first carpometacarpal compartment joint space narrowing, sclerosis and spurring first carpal metacarpal compartment. Soft Tissues: Surgical clip soft tissue radial aspect distal radius without change in position. IMPRESSION: 1. Negative for fracture. 2. Moderate osteoarthritis first carpal metacarpal compartment. RADIA ADDENDUM: 06/29/19 12:12 Nondisplaced comminuted intra-articular fracture fifth metacarpal base.
--- NOTE | 2019-06-29 12:12 | XRAY Report ---
Reason: GLF, left wrist hand pain Procedure Date: 06/29/2019 Accession Number: [id number] / [id number] Procedure: XR - Wrist 4 View LT CPT Code: Final Report FULL RESULT: EXAM: LEFT WRIST RADIOGRAPHY EXAM DATE: 06/29/2019 11:35 AM. CLINICAL HISTORY: GLF, left wrist and hand pain. COMPARISON: WRIST 3 VIEW LT 11/30/2017 9:35 AM HAND 3 VIEW LT 06/29/2019 11:26 AM. TECHNIQUE: 4 views. FINDINGS: Bones: Nondisplaced comminuted intra-articular fracture fifth metacarpal base. Joints: Normal. No subluxations. Soft Tissues: Soft tissue swelling ulnar aspect wrist. IMPRESSION: Nondisplaced comminuted intra-articular fracture left fifth metacarpal base. RADIA
--- NOTE | 2019-06-29 12:41 | ED Physician Documentation ---
PD HPI UPPER EXT INJURY - Stated complaint Stated Complaint: HAND INJURY - Chief complaint Chief Complaint: Ext Problem - History obtained from History obtained from: Patient - History of Present Illness Location: Left, Wrist, Hand Type of injury: Fall Where injury occurred: Home Timing - onset: How many days ago (4) Timing - duration: Days (4) Timing - details: Abrupt onset, Still present Improved by: Rest, Immobilization Worsened by: Moving, Palpating Associated symptoms: Swelling, Discolored. No: Weakness, Numbness Similar symptoms before: Has not had sx before Recently seen: Not recently seen - Additonal information Additional information: 73-year-old female with a history of MS has frequent falls and she has had a fall at home 3 days ago and she is fallen onto her left arm. She has pain in the hand and this palm of the hand with some swelling and discoloration and she is not able to make a good fist. She has the majority of her pain at the proximal hand on the ulnar aspect. She does not believe she was injured anywhere else in the fall of any significance she had some mild knee pain she is ambulating. Review of Systems Constitutional: denies: Fever Eyes: denies: Decreased vision Ears: denies: Ear pain Nose: denies: Congestion Throat: denies: Sore throat Respiratory: denies: Dyspnea, Cough GI: denies: Nausea, Vomiting : denies: Dysuria, Frequency Skin: denies: Rash PD PAST MEDICAL HISTORY - Past Medical History Past Medical History: Yes Cardiovascular: Hypertension, High cholesterol, Coronary artery disease, Atrial fibrillation, Arrhythmia Respiratory: Asthma Neuro: Multiple sclerosis : Other Psych: Claustrophobia Musculoskeletal: Osteoarthritis, Fibromyalgia, Chronic back pain - Past Surgical History Past Surgical 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: Yes 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 Cardiovascular: CABG - Present Medications Home Medications: Ambulatory Orders Medication Instructions Recorded Confirmed Fluoxetine HCl [Prozac] 10 mg PO DAILY 01/16/14 08/12/18 Losartan [Cozaar] 100 mg PO DAILY 01/16/14 08/12/18 Omeprazole [Prilosec] 20 mg PO DAILY 01/16/14 08/12/18 atenoloL [Atenolol] 75 mg PO DAILY 08/12/14 08/12/18 Atorvastatin Calcium 20 mg DAILY 06/29/16 08/12/18 Albuterol Sulf [Ventolin Hfa 1 - 2 puffs INH Q4HR PRN #1 inhaler 12/01/17 08/12/18 Inhaler] Prednisone 5 mg PO DAILY 08/12/18 08/12/18 Benzonatate [Tessalon Perle] 100 - 200 mg PO TID PRN #30 capsule 01/18/19 - Allergies Allergies/Adverse Reactions: Allergies Allergy/AdvReac Type Severity Reaction Status Date / Time amoxicillin trihydrate * Allergy Rash Verified 06/29/19 11:21 [From Augmentin] nitrofurantoin Allergy Rash Verified 06/29/19 11:21 macrocrystalline * [From Macrodantin] potassium clavulanate * Allergy Rash Verified 06/29/19 11:21 [From Augmentin] lisinopril AdvReac Unknown Verified 06/29/19 11:21 - Social History Does the pt smoke?: No Smoking Status: Never smoker Does the pt drink ETOH?: Yes Does the pt have substance abuse?: No - Immunizations Immunizations are current?: Yes - POLST Patient has POLST: Yes PD ED PE NORMAL - Vitals Vital signs reviewed: Yes (hypertensive) - General General: Alert and oriented X 3, No acute distress, Well developed/nourished - HEENT HEENT: Atraumatic, PERRL, EOMI - Derm Derm: Normal color, Warm and dry, No rash - Extremities Extremities: Other (The left hand is swollen and ecchymotic over the proximal palmar surface of the hand. There is more swelling to the ulnar aspect into the proximal aspect of the hand. She has a maximal point of pain over the proximal fifth metacarpal. 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, No motor deficit, No sensory deficit, Normal speech Eye Opening: Spontaneous Motor: Obeys Commands Verbal: Oriented GCS Score: 15 - Psych Psych: Normal mood, Normal affect Results - Vitals Vitals: Vital Signs - 24 hr 06/29/19 11:17 Temperature 36.4 C L Heart Rate 56 L Respiratory 16 Rate Blood Pressure 148/69 H O2 Saturation 96 Oxygen O2 Source Room air - Rads (name of study) wrist Radiology: Prelim report reviewed (Impression: Nondisplaced comminuted intra- articular fracture left fifth metacarpal base.), EMP read indepedently, See rad report Hand Radiology: Prelim report reviewed, Final report received, EMP read indepedently, See rad report Procedures - Splint (location) Left hand Type of splint: Fiberglass, Ulnar gutter Other: Patient tolerated well, No complications, Neurovascular intact, Good alignment PD MEDICAL DECISION MAKING - ED course Complexity details: reviewed results, considered differential, d/w patient ED course: 73-year-old female with a fall and fracture of the proximal fifth metacarpal of the left hand is placed into an ulnar gutter splint and we will have her follow- up with orthopedics. Departure - Departure Disposition: 01 Home, Self Care Clinical Impression: Metacarpal bone fracture Qualifiers: Encounter type: initial encounter Metacarpal bone: fifth Fracture type: closed Metacarpal location: base Fracture alignment: nondisplaced Laterality: left Qualified Code(s): S62.347A - Nondisplaced fracture of base of fifth metacarpal bone, left hand, initial encounter for closed fracture Condition: Stable Instructions: ED Fx Hand Closed Follow-Up: Matteo Osborne MD [Primary Care Provider] - [facility] [Provider Group]
== END 2019-06-29 13:31 | disposition home or self-care (01) ==
LOC: ED 11:04
DX: S62.317A Displaced fracture of base of fifth metacarpal bone, left hand, initial encounter for closed fracture (principal); W18.30XA Fall on same level, unspecified, initial encounter; I10 Essential (primary) hypertension; Z91.81 History of falling
CPT/HCPCS: 29125; 99283; 99284

== ENCOUNTER 2020-02-11 08:35 | Emergency (ER) | payer MEDICARE, OTHER ==
[2020-02-11] MEDS ORDERED: oxyCODONE 5 MG TABLET PO STA (09:17)
--- NOTE | 2020-02-11 09:17 | ED Physician Documentation ---
History of Present Illness - Stated complaint Stated Complaint: BACK SPASM - Chief complaint Chief Complaint: Back Pain - History obtained from History obtained from: Patient - History of Present Illness Timing: How many days ago (2) Pain level max: 5 Pain level now: 5 - Additonal information Additional information: 74-year-old female presents to the emergency department stating that she fell 2 nights ago at home. She states that she has pain in the right hip and buttock. Worse with movement, better with rest. She states that she feels like her back is spasming. No loss of consciousness. No numbness or tingling. worse with movement and better with rest. Review of Systems Constitutional: denies: Fever, Chills GI: denies: Vomiting, Diarrhea Skin: denies: Rash Musculoskeletal: denies: Neck pain Neurologic: denies: Focal weakness, Numbness, Headache PD PAST MEDICAL HISTORY - Past Medical History Cardiovascular: Hypertension, High cholesterol, Coronary artery disease, Atrial fibrillation, Arrhythmia Respiratory: Asthma Neuro: Multiple sclerosis : Other Psych: Claustrophobia Musculoskeletal: Osteoarthritis, Fibromyalgia, Chronic back pain - Past Surgical History Past Surgical History: Yes General: Colonoscopy /WAIT STAFF: Hysterectomy Cardiovascular: CABG - Present Medications Home Medications: Ambulatory Orders Medication Instructions Recorded Confirmed Losartan [Cozaar] 100 mg PO DAILY 01/16/14 02/11/20 Omeprazole [Prilosec] 20 mg PO DAILY 01/16/14 02/11/20 atenoloL [Atenolol] 50 mg PO BID 08/12/14 02/11/20 Atorvastatin Calcium 20 mg DAILY 06/29/16 02/11/20 Albuterol Sulf [Ventolin Hfa 1 - 2 puffs INH Q4HR PRN #1 inhaler 12/01/17 02/11/20 Inhaler] Prednisone 10 mg PO DAILY 08/12/18 02/11/20 Citalopram [CeleXA] 1 tab PO DAILY 02/11/20 02/11/20 HYDROcod/ACETAM 5/325 [[place] 5/325] 1 ea PO Q6H PRN #14 tablet 02/11/20 Warfarin [Coumadin] 1 tab PO DAILY 02/11/20 02/11/20 methocarbamoL [Robaxin] 500 mg PO Q8H PRN #14 tablet 02/11/20 - Allergies Allergies/Adverse Reactions: Allergies Allergy/AdvReac Type Severity Reaction Status Date / Time amoxicillin trihydrate * Allergy Rash Verified 02/11/20 08:53 [From Augmentin] nitrofurantoin Allergy Rash Verified 02/11/20 08:53 macrocrystalline * [From Macrodantin] potassium clavulanate * Allergy Rash Verified 02/11/20 08:53 [From Augmentin] lisinopril AdvReac Unknown Verified 02/11/20 08:53 - Social History Does the pt smoke?: No Smoking Status: Never smoker Does the pt drink ETOH?: Yes Does the pt have substance abuse?: No - Immunizations Immunizations are current?: Yes - POLST Patient has POLST: Yes PD ED PE NORMAL - Vitals Vital signs reviewed: Yes - General General: Alert and oriented X 3, No acute distress - HEENT HEENT: Atraumatic, Moist mucous membranes - Neck Neck: Supple, no meningeal sign, No bony TTP - Cardiac Cardiac: RRR - Respiratory Respiratory: No respiratory distress, Clear bilaterally - Abdomen Abdomen: Soft, Non tender, Non distended - Back Back: Other ( Also mild tenderness over the low lumbar spine. No step-off or deformity.) - Derm Derm: Warm and dry - Extremities Extremities: No edema, No calf tenderness / cord, Other (Tender to palpation over the right hip. Full range of motion. Neurovascularly intact. No swelling or bruising. ) - Neuro Neuro: Alert and oriented X 3, family member caretaker 2-12 intact, No motor deficit, No sensory deficit, Normal speech Results - Vitals Vitals: Vital Signs - 24 hr 02/11/20 02/11/20 08:45 10:15 Temperature 36.3 C L Heart Rate 69 70 Respiratory 18 16 Rate Blood Pressure 145/90 H 139/86 H O2 Saturation 96 98 Oxygen O2 Source Room air - Labs Labs: Laboratory Tests 02/11/20 09:54 Whole Blood INR 3.3 H - Rads (name of study) R hip xray Radiology: Prelim report reviewed, EMP read contemporaneously, See rad report (No evidence of acute bony abnormality of the pelvis and right hip right hip ) L spine xray Radiology: Prelim report reviewed, EMP read contemporaneously, See rad report (No evidence of acute bony abnormality of the lumbar spine. ) head CT Radiology: Prelim report reviewed, EMP read contemporaneously, See rad report (No acute intracranial disease process. ) PD MEDICAL DECISION MAKING - ED course Complexity details: reviewed results, re-evaluated patient, considered differential, d/w patient ED course: No acute radiographic abnormalities in the lumbar spine, hip or head. INR is 3.3, we will have her hold her next dose of warfarin. Ambulating well. Feels better after pain medication. Will continue pain medication at home and have her follow-up with her doctor for further care. Patient counseled regarding signs and symptoms for which I believe and urgent re-evaluation would be necessary. Patient with good understanding of and agreement to plan and is comfortable going home at this time This document was made in part using voice recognition software. While efforts are made to proofread this document, sound alike and grammatical errors may occur. Departure - Departure Disposition: 01 Home, Self Care Clinical Impression: Back spasm Condition: Good Instructions: ED Low Back Pain Injury Follow-Up: Matteo Osborne MD [Primary Care Provider] - Within 1 week Prescriptions: HYDROcod/ACETAM 5/325 [[place] 5/325] 1 ea PO Q6H PRN #14 tablet PRN Reason: Pain methocarbamoL [Robaxin] 500 mg PO Q8H PRN #14 tablet PRN Reason: back spasm Comments: Thankfully your x-rays do not show any acute abnormalities today. Your INR is slightly high at 3.3. You should skip your next dose of warfarin. Return if you worsen. Do not drink alcohol or drive while on narcotic pain medicine. Note that many narcotic pain relievers also contain tylenol/acetaminophen. Please ensure that your total dose of acetaminophen from all sources does not exceed 3 grams (3000mg) per day. You may constipated on this medication, take a stool softener such as "Colace" twice a day while you are on it. Also recommend a tfqd-xle-abfkrcc laxative such as senna or MiraLAX any day that you do not have a bowel movement. If you received narcotic pain medication in the emergency department, do not drive or operate machinery for the next 24 hours. Discharge Date/Time: 02/11/20 10:15
--- NOTE | 2020-02-11 09:44 | CT Report ---
PROCEDURE: HEAD WO INDICATIONS: fall, headache, takes warfarin TECHNIQUE: Noncontrast 4.5 mm thick angled axial sections acquired from the foramen magnum to the vertex. For r adiation dose reduction, the following was used: automated exposure control, adjustment of mA and/or kV according to patient size. COMPARISON: 09/24/2018 FINDINGS: Image quality: Excellent. CSF spaces: Basal cisterns are patent. No extra-axial fluid collections. The ventricles are symmet nir in size and shape. Brain: No intracranial bleeds or masses. There is cerebral volume loss for age, with resultant vent ricular and sulcal prominence. There are periventricular and deep white matter chronic small vessel ischemic changes. Chronic, large right MCA distribution infarct is stable compared to prior CT scan. There is intracranial internal carotid artery atherosclerosis. Skull and face: Calvarium and visualized facial bones appear intact, without suspicious lesions. Sinuses: Visualized sinuses and mastoids are clear. IMPRESSION: No acute intracranial disease process. Reviewed by: Socorro Campbell MD, PhD on 02/11/2020 9:43 AM [facility] Approved by: Socorro Campbell MD, PhD on 02/11/2020 9:43 AM PST Station ID: [id number]
--- NOTE | 2020-02-11 09:59 | XRAY Report ---
PROCEDURE: Hip w/Pelvis 2-3V RT INDICATIONS: fall, R hip pain TECHNIQUE: AP pelvis with lateral view(s) of the right hip(s). COMPARISON: None. FINDINGS: Bones: No fractures or dislocations. Pelvic ring appears intact. No suspicious bony lesions. Mild right hip degenerative change. Soft tissues: The visualized bowel gas pattern is normal. No suspicious soft tissue calcifications. IMPRESSION: No evidence of acute bony abnormality of the pelvis and right hip right hip Reviewed by: Jarrod Paulino MD on 02/11/2020 9:58 AM PST Approved by: Jarrod Paulino MD on 02/11/2020 9:58 AM PST Station ID: [id number]
--- NOTE | 2020-02-11 10:01 | XRAY Report ---
PROCEDURE: Lumbar Spine 2 View INDICATIONS: fall, low back pain TECHNIQUE: 2 views of the lumbar spine were acquired. COMPARISON: None. FINDINGS: Bones: 5 [id number] vertebrae are present. There is normal bony alignment. No vertebral body compression fractures. No suspicious bony lesions. Soft tissues: Overlying bowel gas pattern is normal. No suspicious soft tissue calcifications. IMPRESSION: No evidence of acute bony abnormality of the lumbar spine. Comment: Lumbar spine MRI may be helpful if clinically suspect an occult lumbar compression fracture. Reviewed by: Jarrod Paulino MD on 02/11/2020 9:59 AM PST Approved by: Jarrod Paulino MD on 02/11/2020 9:59 AM PST Station ID: [id number]
[2020-02-11 10:28] VITALS: BP 139/86
== END 2020-02-11 10:15 | disposition home or self-care (01) ==
LOC: ED 08:35
DX: M62.830 Muscle spasm of back (principal); M54.5 Low back pain; M25.551 Pain in right hip; R51.9 Headache, unspecified; W01.0XXA Fall on same level from slipping, tripping and stumbling without subsequent striking against object, initial encounter; Y92.002 Bathroom of unspecified non-institutional (private) residence as the place of occurrence of the external cause; G35 Multiple sclerosis; R79.1 Abnormal coagulation profile; Z79.01 Long term (current) use of anticoagulants; I48.91 Unspecified atrial fibrillation; I10 Essential (primary) hypertension
CPT/HCPCS: 70450; 72100; 73502; 85610; 99284; A9270

== ENCOUNTER 2020-02-14 14:39 | Outpatient (CLI) | payer MEDICARE, OTHER ==
--- NOTE | 2020-02-14 17:29 | CT Report ---
PROCEDURE: PELVIS WO INDICATIONS: NORMAL XR OF L SPINE AND R HIP TECHNIQUE: Noncontrast 3 mm axial sections acquired through the bony pelvis, with coronal and sagittal reformatt ing. For radiation dose reduction, the following was used: automated exposure control, adjustment of mA and/or kV according to patient size. COMPARISON: None. FINDINGS: Image quality: Excellent. Bones: Examination of bony pelvis and right hip shows osteoarthritic changes in bilateral hip joints , sacroiliac joints and symphysis pubis. There is no acute pelvic or hip fracture. No hip dislocation . No evidence of avascular necrosis of femoral head. Degenerative disc disease in visualized lower loyda mbar spine is seen. Soft tissues: There is no pelvic free fluid of free air. No abnormal bowel wall thickening. Bladder wall thickness is normal. Left inguinal hernia is seen containing fat only. No inguinal lymphadenopat hy. No abnormal density is seen in bilateral pelvic and hip muscles and soft tissues. IMPRESSION: 1. No acute pelvic or hip fracture. No hip dislocation. Osteoarthritis throughout the bony pelvis. No evidence of avascular necrosis of femoral head. 2. No gross pelvic soft tissue abnormality. No pelvic free fluid or free air. Reviewed by: Dimitry Medina MD on 02/14/2020 4:27 PM [place] Approved by: Dimitry Medina MD on 02/14/2020 4:27 PM [facility] Station ID: [id number]
== END 2020-02-14 14:40 | disposition home or self-care (01) ==
LOC: DI 14:39
PROVIDERS: ATTEND Physician Assistant
DX: M19.09 Primary osteoarthritis, other specified site (principal)
CPT/HCPCS: 72192

== ENCOUNTER 2020-05-15 11:38 | Emergency (ER) | payer MEDICARE, OTHER ==
[2020-05-15] MEDS ORDERED: HYDROmorphone 1 MG/ML CARPUJECT IVP STA (12:05)
[2020-05-15] MEDS ORDERED: ONDANSETRON 4 MG/2 ML VIAL IVP STA (12:05)
--- NOTE | 2020-05-15 12:10 | ED Physician Documentation ---
PD HPI FOCAL NEURO - Stated complaint Stated Complaint: HEADACHE,N/V - Chief complaint Chief Complaint: Neuro - History obtained from History obtained from: Patient - Additional information Additional information: This is a 74-year-old woman who has a history of coronary disease status post bypass and multiple sclerosis. She is anticoagulated. She did not think she had a history of A. fib but looking at the chart she probably does. She checks her INR at home it was 4.1 yesterday. Last night she developed a gradual onset severe right retro-orbital headache associated with nausea and vomiting. She does not get headaches often and this is very atypical for her. Review of Systems Ten Systems: 10 systems reviewed and negative Constitutional: reports: Reviewed and negative Ears: reports: Reviewed and negative Nose: reports: Reviewed and negative Throat: reports: Reviewed and negative Cardiac: reports: Reviewed and negative PD PAST MEDICAL HISTORY - Past Medical History Cardiovascular: Hypertension, High cholesterol, Coronary artery disease, Atrial fibrillation, Arrhythmia Respiratory: Asthma Neuro: Multiple sclerosis : Other Psych: Claustrophobia Musculoskeletal: Osteoarthritis, Fibromyalgia, Chronic back pain - Past Surgical History Past Surgical History: Yes 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 Cardiovascular: CABG - Present Medications Home Medications: Ambulatory Orders Medication Instructions Recorded Confirmed Losartan [Cozaar] 100 mg PO DAILY 01/16/14 02/11/20 Omeprazole [Prilosec] 20 mg PO DAILY 01/16/14 02/11/20 atenoloL [Atenolol] 50 mg PO BID 08/12/14 02/11/20 Atorvastatin Calcium 20 mg DAILY 06/29/16 02/11/20 Albuterol Sulf [Ventolin Hfa 1 - 2 puffs INH Q4HR PRN #1 inhaler 12/01/17 02/11/20 Inhaler] Prednisone 10 mg PO DAILY 08/12/18 02/11/20 Citalopram [CeleXA] 1 tab PO DAILY 02/11/20 02/11/20 HYDROcod/ACETAM 5/325 [[place] 5/325] 1 ea PO Q6H PRN #14 tablet 02/11/20 Warfarin [Coumadin] 1 tab PO DAILY 02/11/20 02/11/20 methocarbamoL [Robaxin] 500 mg PO Q8H PRN #14 tablet 02/11/20 Acetaminophen/Cod 300/30 [Tylenol 1 each PO Q6H PRN #10 tablet 05/15/20 #3] - Allergies Allergies/Adverse Reactions: Allergies Allergy/AdvReac Type Severity Reaction Status Date / Time amoxicillin trihydrate * Allergy Rash Verified 05/15/20 11:55 [From Augmentin] nitrofurantoin Allergy Rash Verified 05/15/20 11:55 macrocrystalline * [From Macrodantin] potassium clavulanate * Allergy Rash Verified 05/15/20 11:55 [From Augmentin] lisinopril AdvReac Unknown Verified 05/15/20 11:55 - Social History Does the pt smoke?: No Smoking Status: Never smoker Does the pt drink ETOH?: Yes Does the pt have substance abuse?: No - Immunizations Immunizations are current?: Yes - POLST Patient has POLST: Yes PD ED PE NORMAL - Vitals Vital signs reviewed: Yes - General General: Alert and oriented X 3 (Mild memory difficulties but alert and orient ed) - HEENT HEENT: EOMI, Other (Left pupil is irregular from prior cataract surgery) - Neck Neck: Supple, no meningeal sign, No bony TTP - Cardiac Cardiac: RRR, No murmur - Respiratory Respiratory: No respiratory distress, Clear bilaterally - Abdomen Abdomen: Normal bowel sounds, Soft, Non tender - Back Back: No CVA TTP, No spinal TTP - Derm Derm: Normal color, Warm and dry - Neuro Neuro: Alert and oriented X 3, No sensory deficit, Normal speech, Other (Mild, very mild left upper and lower extremity weakness, she says this is her baseline from prior stroke.) Eye Opening: Spontaneous Motor: Obeys Commands Verbal: Oriented GCS Score: 15 - Psych Psych: Normal mood, Normal affect Results - Vitals Vitals: Vital Signs - 24 hr 05/15/20 11:48 Temperature 36.3 C L Heart Rate 60 Respiratory 20 Rate Blood Pressure 183/62 H O2 Saturation 99 Oxygen O2 Source Room air - Labs Labs: Laboratory Tests 05/15/20 05/15/20 05/15/20 12:18 12:18 12:18 WBC 11.1 H RBC 3.76 L Hgb 12.7 Hct 38.8 MCV 103.2 H MCH 33.8 H MCHC 32.7 RDW 13.2 Plt Count 214 MPV 10.9 H Neut # (Auto) 9.3 H Lymph # (Auto) 1.3 L [place] # (Auto) 0.5 Eos # (Auto) 0.0 Baso # (Auto) 0.1 Absolute Nucleated RBC 0.00 Nucleated RBC % 0.0 PT 21.1 H INR 2.0 H Sodium 137 Potassium 3.4 L Chloride 97 L Carbon Dioxide 28 Anion Gap 12.0 BUN 14 Creatinine 0.5 Estimated GFR (MDRD) 121 Glucose 129 H Calcium 8.8 - Rads (name of study) CT Head Radiology: EMP read contemporaneously PD MEDICAL DECISION MAKING - ED course ED course: 74-year-old woman not on blood thinners presents with an acute right-sided headache. Her examination is unremarkable. Her blood pressure went down with time. It was relatively easy to treat her headache here with a single dose of 0.5 mg of Dilaudid. Intracranial bleeding was definitely on the differential given her high INR yesterday, but no evidence of this on CT. Departure - Departure Disposition: 01 Home, Self Care Clinical Impression: Adequate anticoagulation on anticoagulant therapy Headache Qualifiers: Headache type: tension-type Headache chronicity pattern: acute headache Intractability: not intractable Qualified Code(s): G44.209 - Tension-type headache, unspecified, not intractable Condition: Good Record reviewed to determine appropriate education?: Yes Instructions: ED Cephalgia Unspecified Prescriptions: Acetaminophen/Cod 300/30 [Tylenol #3] 1 each PO Q6H PRN #10 tablet PRN Reason: Pain Comments: Your INR today on our machine was is 2.0. CAT scan of the head showed no changes from prior. We see evidence of the old stroke on the right side but no bleeding or anything that is concerning for a new process today. Return for new or worsening symptoms. Follow-up with your primary care physician.
[2020-05-15 12:30] LABS: BASOPHILS # (AUTO) 0.1 10^3/uL (0.0-0.1); BASOPHILS % (AUTO) 0.5 %; EOSINOPHILS % (AUTO) 0.3 %; HCT - HEMATOCRIT 38.8 % (37.0-47.0); HGB - HEMOGLOBIN 12.7 g/dL (12.0-16.0); LYMPHOCYTES # (AUTO) 1.3 10^3/uL (1.5-3.5); LYMPHOCYTES % (AUTO) 11.5 %; MEAN CORPUSCULAR HEMOGLOBIN 33.8 pg (27.0-31.0); MEAN CORPUSCULAR HGB CONC 32.7 g/dL (32.0-36.0); MEAN CORPUSCULAR VOLUME 103.2 fL (81.0-99.0); MEAN PLATELET VOLUME 10.9 fL (7.9-10.8); MONOCYTES # (AUTO) 0.5 10^3/uL (0.0-1.0); MONOCYTES % (AUTO) 4.1 %; NEUTROPHILS # (AUTO) 9.3 10^3/uL (1.5-6.6); NEUTROPHILS % (AUTO) 83.2 %; PLT - PLATELET COUNT 214 10^3/uL (130-450); RED BLOOD COUNT 3.76 10^6/uL (4.20-5.40); RED CELL DISTRIBUTION WIDTH 13.2 % (12.0-15.0); WHITE BLOOD COUNT 11.1 x10^3/uL (4.8-10.8)
[2020-05-15 12:35] LABS: PT - PROTHROMBIN TIME 21.1 secs (9.9-12.6)
[2020-05-15 12:36] LABS: CALCIUM 8.8 mg/dL (8.5-10.3); CREATININE 0.5 mg/dL (0.4-1.0); POTASSIUM 3.4 mmol/L (3.5-5.0)
--- NOTE | 2020-05-15 13:52 | CT Report ---
PROCEDURE: HEAD WO INDICATIONS: severe h/a, anticoagulated TECHNIQUE: Noncontrast 4.5 mm thick angled axial sections acquired from the foramen magnum to the vertex. For r adiation dose reduction, the following was used: automated exposure control, adjustment of mA and/or kV according to patient size. COMPARISON: 02/11/2020. FINDINGS: Image quality: Excellent. CSF spaces: Basal cisterns are patent. No extra-axial fluid collections. Ventricles are normal in size and shape. Brain: No midline shift. No intracranial There is cerebral volume loss for age, with resultant vent ricular and sulcal prominence. There are periventricular and deep white matter chronic small vessel ischemic changes. Chronic, large right MCA distribution infarct is stable unchanged from prior CT sca n. There is intracranial internal carotid artery atherosclerosis. Skull and face: Calvarium and visualized facial bones are intact, without suspicious lesions. Sinuses: Visualized sinuses and mastoids are clear. IMPRESSION: No CT evidence of acute intracranial pathology. No significant changes from previous study. Reviewed by: Dimitry Medina MD on 05/15/2020 1:50 PM PST Approved by: Dimitry Medina MD on 05/15/2020 1:50 PM PST Station ID: [id number]
[2020-05-15 14:05] VITALS: BP 121/103
== END 2020-05-15 14:20 | disposition home or self-care (01) ==
LOC: ED 11:38
DX: G44.209 Tension-type headache, unspecified, not intractable (principal); I10 Essential (primary) hypertension; I48.91 Unspecified atrial fibrillation; Z79.01 Long term (current) use of anticoagulants; I69.354 Hemiplegia and hemiparesis following cerebral infarction affecting left non-dominant side; I25.10 Atherosclerotic heart disease of native coronary artery without angina pectoris; Z95.1 Presence of aortocoronary bypass graft; G35 Multiple sclerosis
CPT/HCPCS: 36415; 70450; 80048; 85025; 85610; 96374; 96375; 99284; J1170

== ENCOUNTER 2020-08-05 05:10 | Emergency (ER) | payer MEDICARE, OTHER ==
--- OUTSIDE RECORDS SUMMARY | 2020-08-05 05:13 | EXTERNAL MEDICAL SUMMARY RPT | Continuity of Care Document ---
:1945 Demographics Phone Unavailable Preferred Language Monegasque Marital Status Unknown Church Affiliation Unknown Race Unknown Ethnic Group Unknown Author Organization [place] Address [address] [phone] Phone Care Team Providers Name Role Phone Osborne Unavailable Unavailable Allergies Encounters Medications Problems date description facility [id number] [facility] Results
--- OUTSIDE RECORDS SUMMARY | 2020-08-05 05:17 | EXTERNAL MEDICAL SUMMARY RPT | Continuity of Care Document ---
:1945 Demographics Phone Unavailable Preferred Language Citizen [place] Marital Status Unknown Adventism Affiliation Unknown Race Unknown Ethnic Group Unknown Author Organization [place] Address [address] [phone] Phone Care Team Providers Name Role Phone Osborne Unavailable Unavailable Allergies Encounters Medications Problems date description facility [id number] [facility] Results
--- NOTE | 2020-08-05 05:41 | ED Physician Documentation ---
PD HPI HEAD INJURY - Stated complaint Stated Complaint: FALL,HEAD INJ - Chief complaint Chief Complaint: Trauma Hd/Nk - History obtained from History obtained from: Patient - History of Present Illness Mechanism of head injury: Fell (she states her foot slipped on rugging and she fell forward, striking forehead on nightstand or such.) Where head injury occurred: Home Timing - onset: Today (about an hour ago) Location of injury: Left, Front Associated symptoms: Other (minimal headache). No: LOC, AMS, Nausea / vomiting Symptoms worsen with: Palpation Contributing factors: Anticoagulated (she is here due to being on Warfarin, as has mild symptoms and does not feel significantly injured.) Similar symptoms before: Has not had sx before Recently seen: Not recently seen Review of Systems Constitutional: denies: Fever Nose: denies: Rhinorrhea / runny nose, Congestion Throat: denies: Sore throat Cardiac: denies: Chest pain / pressure Respiratory: denies: Dyspnea, Cough GI: denies: Abdominal Pain Skin: denies: Abrasion (s), Laceration (s) Musculoskeletal: denies: Neck pain, Back pain Neurologic: reports: Head injury. 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 Cardiovascular: CABG - Present Medications Home Medications: Ambulatory Orders Medication Instructions Recorded Confirmed Losartan [Cozaar] 100 mg PO DAILY 01/16/14 02/11/20 Omeprazole [Prilosec] 20 mg PO DAILY 01/16/14 02/11/20 atenoloL [Atenolol] 50 mg PO BID 08/12/14 02/11/20 Atorvastatin Calcium 20 mg DAILY 06/29/16 02/11/20 Albuterol Sulf [Ventolin Hfa 1 - 2 puffs INH Q4HR PRN #1 inhaler 12/01/17 02/11/20 Inhaler] predniSONE [Prednisone] 10 mg PO DAILY 08/12/18 02/11/20 Citalopram [CeleXA] 1 tab PO DAILY 02/11/20 02/11/20 HYDROcod/ACETAM 5/325 [[place] 5/325] 1 ea PO Q6H PRN #14 tablet 02/11/20 Warfarin [Coumadin] 1 tab PO DAILY 02/11/20 02/11/20 methocarbamoL [Robaxin] 500 mg PO Q8H PRN #14 tablet 02/11/20 Acetaminophen/Cod 300/30 [Tylenol 1 each PO Q6H PRN #10 tablet 05/15/20 #3] - Allergies Allergies/Adverse Reactions: Allergies Allergy/AdvReac Type Severity Reaction Status Date / Time amoxicillin trihydrate * Allergy Rash Verified 05/15/20 11:55 [From Augmentin] nitrofurantoin Allergy Rash Verified 05/15/20 11:55 macrocrystalline * [From Macrodantin] potassium clavulanate * Allergy Rash Verified 05/15/20 11:55 [From Augmentin] lisinopril AdvReac Unknown Verified 05/15/20 11:55 - Social History Does the pt smoke?: No Smoking Status: Never smoker Does the pt drink ETOH?: Yes Does the pt have substance abuse?: No - Immunizations Immunizations are current?: Yes - POLST Patient has POLST: Yes PD ED PE NORMAL - Vitals Vital signs reviewed: Yes - General General: Alert and oriented X 3, No acute distress, Well developed/nourished - HEENT HEENT: PERRL, EOMI, Other (mild tenderness left forehead. No notable hematoma. ) - Neck Neck: Supple, no meningeal sign, No bony TTP - Cardiac Cardiac: RRR, No murmur - Respiratory Respiratory: Clear bilaterally, Other (no chestwall tenderness) - Abdomen Abdomen: Soft, Non tender - Back Back: No spinal TTP - Derm Derm: Normal color, Warm and dry - Neuro Neuro: Alert and oriented X 3, No motor deficit, Normal speech Results - Vitals Vitals: Vital Signs - 24 hr 08/05/20 08/05/20 05:35 06:43 Temperature 36.6 C Heart Rate 56 L 59 L Respiratory 18 18 Rate Blood Pressure 197/82 H 168/79 H O2 Saturation 96 97 Oxygen O2 Source Room air - Labs Labs: Laboratory Tests 08/05/20 08/05/20 08/05/20 05:45 05:45 05:45 WBC 6.8 RBC 3.54 L Hgb 12.1 Hct 36.1 L MCV 102.0 H MCH 34.2 H MCHC 33.5 RDW 12.6 Plt Count 190 MPV 10.7 Neut # (Auto) 3.3 Lymph # (Auto) 2.6 [place] # (Auto) 0.7 Eos # (Auto) 0.2 Baso # (Auto) 0.1 Absolute Nucleated RBC 0.00 Nucleated RBC % 0.0 PT 33.8 H INR 3.3 H Sodium 141 Potassium 3.4 L Chloride 104 Carbon Dioxide 26 Anion Gap 11.0 BUN 17 Creatinine 0.6 Estimated GFR (MDRD) 98 Glucose 113 H Calcium 8.6 - Rads (name of study) head CT Radiology: Prelim report reviewed (no ICH nor fractures), See rad report PD MEDICAL DECISION MAKING - ED course Complexity details: reviewed results, considered differential, d/w patient Departure - Departure Disposition: 01 Home, Self Care Clinical Impression: Anticoagulant long-term use Accidental fall Qualifiers: Encounter type: initial encounter Qualified Code(s): W19.XXXA - Unspecified fall, initial encounter Forehead contusion Qualifiers: Encounter type: initial encounter Qualified Code(s): S00.83XA - Contusion of other part of head, initial encounter Condition: Stable Record reviewed to determine appropriate education?: Yes Follow-Up: Matteo Osborne MD [Primary Care Provider] - Comments: Your CT does not show any signs of bleeding swelling or fracture. Normal activity today. Tylenol if needed for headache or pains. Your Coumadin level is 3.3. Contact your primary care if needed. I would most likely just continue your usual dose of Coumadin. Discharge Date/Time: 08/05/20 06:43
[2020-08-05 05:52] LABS: BASOPHILS # (AUTO) 0.1 10^3/uL (0.0-0.1); EOSINOPHILS # (AUTO) 0.2 10^3/uL (0.0-0.7); EOSINOPHILS % (AUTO) 2.5 %; HCT - HEMATOCRIT 36.1 % (37.0-47.0); HGB - HEMOGLOBIN 12.1 g/dL (12.0-16.0); LYMPHOCYTES # (AUTO) 2.6 10^3/uL (1.5-3.5); LYMPHOCYTES % (AUTO) 38.8 %; MEAN CORPUSCULAR HEMOGLOBIN 34.2 pg (27.0-31.0); MEAN CORPUSCULAR HGB CONC 33.5 g/dL (32.0-36.0); MEAN PLATELET VOLUME 10.7 fL (7.9-10.8); MONOCYTES # (AUTO) 0.7 10^3/uL (0.0-1.0); MONOCYTES % (AUTO) 9.5 %; NEUTROPHILS # (AUTO) 3.3 10^3/uL (1.5-6.6); NEUTROPHILS % (AUTO) 47.9 %; PLT - PLATELET COUNT 190 10^3/uL (130-450); RED BLOOD COUNT 3.54 10^6/uL (4.20-5.40); RED CELL DISTRIBUTION WIDTH 12.6 % (12.0-15.0); WHITE BLOOD COUNT 6.8 x10^3/uL (4.8-10.8)
[2020-08-05 05:58] LABS: INR 3.3 (0.8-1.2); PT - PROTHROMBIN TIME 33.8 secs (9.9-12.6)
[2020-08-05 06:03] LABS: CALCIUM 8.6 mg/dL (8.5-10.3); CREATININE 0.6 mg/dL (0.4-1.0); POTASSIUM 3.4 mmol/L (3.5-5.0)
[2020-08-05 06:44] VITALS: BP 168/79
--- NOTE | 2020-08-05 08:24 | CT Report ---
PROCEDURE: HEAD WO INDICATIONS: Trauma, fall, struck head; on coumadin TECHNIQUE: Noncontrast 4.5 mm thick angled axial sections acquired from the foramen magnum to the vertex. For r adiation dose reduction, the following was used: automated exposure control, adjustment of mA and/or kV according to patient size. COMPARISON: 05/15/[address] FINDINGS: Image quality: Excellent. CSF spaces: Basal cisterns are patent. No extra-axial fluid collections. The ventricular system and basilar cisterns are patent. Brain: Global cerebral volume loss with passive expansion of the ventricles and extra-axial spaces. T here is encephalomalacia and gliosis related to prior infarct in the right frontal and right parietal lobes, as well as to a lesser degree in the right temporal lobe. Advanced chronic microvascular isch emic changes are present in both cerebral hemispheres. Intracranial hemorrhage, mass effect, or midli ne shift demonstrated. The hsieh-white matter differentiation is grossly maintained otherwise, without CT evidence of acute large territory infarct. Skull and face: Calvarium and visualized facial bones are intact, without suspicious lesions. Sinuses: Visualized sinuses and mastoids are clear. IMPRESSION: No acute intracranial process demonstrated. Encephalomalacia and gliosis related to right frontal, parietal, and temporal lobe infarct. Global stable volume loss and chronic microvascular ischemic changes are similar to the prior exam. No significant change from preliminary report. Reviewed by: Miki Uribe MD on 08/05/2020 8:23 AM PDT Approved by: Miki Uribe MD on 08/05/2020 8:23 AM PDT Station ID: [id number]
== END 2020-08-05 06:43 | disposition home or self-care (01) ==
LOC: ED 05:10
DX: S00.83XA Contusion of other part of head, initial encounter (principal); W01.190A Fall on same level from slipping, tripping and stumbling with subsequent striking against furniture, initial encounter; Y93.89 Activity, other specified; Y92.003 Bedroom of unspecified non-institutional (private) residence as the place of occurrence of the external cause; Z79.01 Long term (current) use of anticoagulants
CPT/HCPCS: 36415; 80048; 85025; 85610; 99284

== ENCOUNTER 2020-08-14 13:18 | Outpatient (CLI) | payer MEDICARE, OTHER ==
[2020-08-14] MEDS ORDERED: IOVERSOL 320 100 ML VIAL IVP ONE (16:57)
== END 2020-08-14 13:19 | disposition critical access hospital (66) ==
LOC: EMS 13:18
DX: R29.898 Other symptoms and signs involving the musculoskeletal system (principal); R47.1 Dysarthria and anarthria
CPT/HCPCS: A0425; A0429; Q9967

== ENCOUNTER 2020-08-14 13:30 | Inpatient (IN) | payer MEDICARE, OTHER ==
--- OUTSIDE RECORDS SUMMARY | 2020-08-14 13:38 | EXTERNAL MEDICAL SUMMARY RPT | Continuity of Care Document ---
:1945 Demographics Phone Unavailable Preferred Language Algerian Marital Status Unknown Mandaeism Affiliation Unknown Race Unknown Ethnic Group Unknown Author Organization [facility] Address [address] [phone] Phone Care Team Providers Name Role Phone Osborne Unavailable Unavailable Allergies Encounters Medications Problems date description facility [id number] [facility] Results
--- NOTE | 2020-08-14 13:44 | ED Physician Documentation ---
PD HPI FOCAL NEURO - Stated complaint Stated Complaint: CODE STROKE - Chief complaint Chief Complaint: Neuro - History obtained from History obtained from: Patient, EMS - History of Present Illness Timing - onset: Today Timing - duration: Hours (1) Timing - details: Abrupt onset Severity of deficit: Moderate Weakness: Face, Arm, Hand, Leg, Foot, Left Numbness: No: Face, Arm, Hand, Leg, Foot, Right, Left Contributing factors: positive: Anticoagulated (Warfarin) Baseline status: positive: A&OX3, ambulatory, indep - Additional information Additional information: Patient is a 74-year-old female who presents to the emergency department with left-sided weakness today. This started about an hour prior to arrival. Similar symptoms to a prior hemorrhagic stroke in 2018 per patient. She is on warfarin. Struck her head about a week ago and had a negative head CT at that time. She states she was eating lunch with her today when the symptoms started today. Review of Systems Ten Systems: 10 systems reviewed and negative Constitutional: denies: Fever, Chills Ears: denies: Ear pain Nose: denies: Rhinorrhea / runny nose, Congestion Throat: denies: Sore throat Respiratory: denies: Cough GI: denies: Nausea, Vomiting, Diarrhea Skin: denies: Rash Musculoskeletal: denies: Neck pain, Back pain Neurologic: denies: Headache, Head injury PD PAST MEDICAL HISTORY - Past Medical History Cardiovascular: Hypertension, High cholesterol, Coronary artery disease, Atrial fibrillation, Arrhythmia Respiratory: Asthma Neuro: Multiple sclerosis : Other Psych: Claustrophobia Musculoskeletal: Osteoarthritis, Fibromyalgia, Chronic back pain - Past Surgical History Past Surgical History: Yes 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 Cardiovascular: CABG - Present Medications Home Medications: Ambulatory Orders Medication Instructions Recorded Confirmed Losartan [Cozaar] 100 mg PO DAILY 01/16/14 08/14/20 Omeprazole [Prilosec] 20 mg PO DAILY 01/16/14 08/14/20 atenoloL [Atenolol] 50 mg PO BID 08/12/14 08/14/20 Atorvastatin Calcium 20 mg DAILY 06/29/16 08/14/20 predniSONE [Prednisone] 5 mg PO DAILY 08/12/18 08/14/20 Warfarin [Coumadin] 2.5 mg PO DAILY 02/11/20 08/14/20 Escitalopram [Lexapro] 10 mg DAILY 08/14/20 08/14/20 - Allergies Allergies/Adverse Reactions: Allergies Allergy/AdvReac Type Severity Reaction Status Date / Time amoxicillin trihydrate * Allergy Rash Verified 08/14/20 13:42 [From Augmentin] nitrofurantoin Allergy Rash Verified 08/14/20 13:42 macrocrystalline * [From Macrodantin] potassium clavulanate * Allergy Rash Verified 08/14/20 13:42 [From Augmentin] lisinopril AdvReac Unknown Verified 08/14/20 13:42 - Social History Does the pt smoke?: No Smoking Status: Never smoker Does the pt drink ETOH?: Yes Does the pt have substance abuse?: No - Immunizations Immunizations are current?: Yes - POLST Patient has POLST: Yes PD ED PE NORMAL - Vitals Vital signs reviewed: Yes - General General: Alert and oriented X 3, No acute distress, Well developed/nourished - HEENT HEENT: PERRL, Moist mucous membranes - Neck Neck: Supple, no meningeal sign - Cardiac Cardiac: RRR, Strong equal pulses - Respiratory Respiratory: No respiratory distress, Clear bilaterally - Abdomen Abdomen: Soft, Non tender, Non distended - Back Back: No spinal TTP - Derm Derm: Warm and dry, No rash - Extremities Extremities: No edema, No calf tenderness / cord - Neuro Neuro: Alert and oriented X 3 - Psych Psych: Normal mood, Normal affect NIHSS - Time Time: 13:37 - Level of Consciousness Level of consciousness: (0) Alert, Keenly responsive LOC Questions: (0) Answers both Q's correct LOC Commands: (0) Performs both correctly - Gaze Best Gaze: (0) Normal - Visual Visual: (0) No loss - Facial Palsy Facial Palsy: (1) Minor paralysis - Motor Arms (both separate) Motor Arm (right): (0) No drift Motor Arm (left): (1) Drift - Motor Legs (both separate) Motor Leg (right): (0) No drift Motor Leg (left): (1) Drift - Limb Ataxia Limb Ataxia: (1) Present in 1 limb - Sensory Sensory: (0) Normal - Best Language Best Language: (1) blow-le-uufmuzh - Dysarthria Dysarthria: (1) Kzni-py-oizgebku dysarthria - Extinction and Inattention (formally neg Extinction and inattention: (0) No abnormality - Total Score/Results Total Score/Result: 6 Results - Vitals Vitals: Vital Signs - 24 hr 08/14/20 08/14/20 08/14/20 13:36 13:55 14:00 Temperature 36.4 C L Heart Rate 73 69 65 Respiratory 16 94 H 16 Rate Blood Pressure 137/61 H 114/75 124/53 L O2 Saturation 96 100 100 08/14/20 08/14/20 14:30 15:00 Temperature Heart Rate 58 L 58 L Respiratory 17 16 Rate Blood Pressure 126/57 L 120/57 L O2 Saturation 96 96 Oxygen O2 Source Room air - EKG (time done) 1356 Rate: Rate (enter#) (63) Rhythm: NSR [place]: Normal Intervals: Normal MN QRS: Normal Ischemia: Normal ST segments - Labs Labs: Laboratory Tests 08/14/20 08/14/20 08/14/20 13:35 13:35 13:35 WBC 8.3 RBC 4.02 L Hgb 13.7 Hct 41.1 MCV 102.2 H MCH 34.1 H MCHC 33.3 RDW 12.7 Plt Count 221 MPV 11.0 H Neut # (Auto) 6.0 Lymph # (Auto) 1.6 [place] # (Auto) 0.5 Eos # (Auto) 0.1 Baso # (Auto) 0.1 Absolute Nucleated RBC 0.00 Nucleated RBC % 0.0 PT 29.2 H INR 2.8 H APTT 32.8 Sodium 143 Potassium 3.8 Chloride 105 Carbon Dioxide 28 Anion Gap 10.0 BUN 12 Creatinine 0.6 Estimated GFR (MDRD) 98 Glucose 170 H Estimat Average Glucose Hemoglobin A1c % Calcium 8.9 Total Bilirubin 0.6 AST 26 ALT 23 Alkaline Phosphatase 52 Total Protein 6.8 Albumin 4.1 Globulin 2.7 Albumin/Globulin Ratio 1.5 Lipase 27 Nasal Adenovirus (PCR) Nasal B. parapertussis DNA (PCR) Nasal Coronavir 229E PCR Nasal Coronavir HKU1 PCR Nasal Coronavir NL63 PCR Nasal Coronavir OC43 PCR Nasal Enterovir/Rhinovir PCR Nasal Influenza B PCR Nasal Influenza A PCR Nasal Parainfluen 1 PCR Nasal Parainfluen 2 PCR Nasal Parainfluen 3 PCR Nasal Parainfluen 4 PCR Nasal RSV (PCR) Nasal B.pertussis DNA PCR Nasal C.pneumoniae (PCR) Bubba Human Metapneumo PCR Nasal M.pneumoniae (PCR) Nasal SARS-CoV-2 (PCR) 08/14/20 08/14/20 13:35 15:05 WBC RBC Hgb Hct MCV MCH MCHC RDW Plt Count MPV Neut # (Auto) Lymph # (Auto) [place] # (Auto) Eos # (Auto) Baso # (Auto) Absolute Nucleated RBC Nucleated RBC % PT INR APTT Sodium Potassium Chloride Carbon Dioxide Anion Gap BUN Creatinine Estimated GFR (MDRD) Glucose Estimat Average Glucose 114 H Hemoglobin A1c % 5.6 Calcium Total Bilirubin AST ALT Alkaline Phosphatase Total Protein Albumin Globulin Albumin/Globulin Ratio Lipase Nasal Adenovirus (PCR) NOT DETECTED Nasal B. parapertussis DNA (PCR) NOT DETECTED Nasal Coronavir 229E PCR NOT DETECTED Nasal Coronavir HKU1 PCR NOT DETECTED Nasal Coronavir NL63 PCR NOT DETECTED Nasal Coronavir OC43 PCR NOT DETECTED Nasal Enterovir/Rhinovir PCR NOT DETECTED Nasal Influenza B PCR NOT DETECTED Nasal Influenza A PCR NOT DETECTED Nasal Parainfluen 1 PCR NOT DETECTED Nasal Parainfluen 2 PCR NOT DETECTED Nasal Parainfluen 3 PCR NOT DETECTED Nasal Parainfluen 4 PCR NOT DETECTED Nasal RSV (PCR) NOT DETECTED Nasal B.pertussis DNA PCR NOT DETECTED Nasal C.pneumoniae (PCR) NOT DETECTED Bubba Human Metapneumo PCR NOT DETECTED Nasal M.pneumoniae (PCR) NOT DETECTED Nasal SARS-CoV-2 (PCR) NOT DETECTED - Rads (name of study) head CT Radiology: Prelim report reviewed, EMP read contemporaneously, See rad report (No acute abnormality Old infarct in the right MCA territory.) head angio CT Radiology: Prelim report reviewed, EMP read contemporaneously, See rad report neck angio CT Radiology: Prelim report reviewed, EMP read contemporaneously, See rad report PD MEDICAL DECISION MAKING - ED course Complexity details: reviewed results, re-evaluated patient, considered differential, d/w patient, d/w family ED course: Patient appears to have an acute stroke today. Likely in the same distribution as her prior right MCA infarct. Symptoms did not resolve in the emergency department. We will admit the patient for further care. Not a TPA candidate secondary to history of intracranial hemorrhage and being anticoagulated on warfarin. Discussed the case with Dr. Fragoso, hospitalist who accepts This document was made in part using voice recognition software. While efforts are made to proofread this document, sound alike and grammatical errors may occur. Departure - Departure Disposition: 66 [facility] DC/Xfer Clinical Impression: Anticoagulant long-term use Stroke Qualifiers: CVA mechanism: unspecified Qualified Code(s): I63.9 - Cerebral infarction, unspecified Condition: Stable Discharge Date/Time: 08/14/20 16:19
[2020-08-14 14:02] LABS: BASOPHILS # (AUTO) 0.1 10^3/uL (0.0-0.1); BASOPHILS % (AUTO) 0.7 %; EOSINOPHILS # (AUTO) 0.1 10^3/uL (0.0-0.7); EOSINOPHILS % (AUTO) 0.6 %; HCT - HEMATOCRIT 41.1 % (37.0-47.0); HGB - HEMOGLOBIN 13.7 g/dL (12.0-16.0); LYMPHOCYTES # (AUTO) 1.6 10^3/uL (1.5-3.5); LYMPHOCYTES % (AUTO) 19.1 %; MEAN CORPUSCULAR HEMOGLOBIN 34.1 pg (27.0-31.0); MEAN CORPUSCULAR HGB CONC 33.3 g/dL (32.0-36.0); MEAN CORPUSCULAR VOLUME 102.2 fL (81.0-99.0); MONOCYTES # (AUTO) 0.5 10^3/uL (0.0-1.0); MONOCYTES % (AUTO) 6.5 %; NEUTROPHILS % (AUTO) 72.9 %; PLT - PLATELET COUNT 221 10^3/uL (130-450); RED BLOOD COUNT 4.02 10^6/uL (4.20-5.40); RED CELL DISTRIBUTION WIDTH 12.7 % (12.0-15.0); WHITE BLOOD COUNT 8.3 x10^3/uL (4.8-10.8)
--- NOTE | 2020-08-14 14:02 | CT Report ---
PROCEDURE: Head W/O Stroke Protocol INDICATIONS: L sided weakness TECHNIQUE: Noncontrast 4.5 mm thick angled axial sections acquired from the foramen magnum to the vertex, with c oronal reformats. For radiation dose reduction, the following was used: automated exposure control, adjustment of mA and/or kV according to patient size. COMPARISON: FINDINGS: Image quality: Excellent. CSF spaces: Basal cisterns are patent. No extra-axial fluid collections. Global cerebral volume los s with ex vacuo dilatation of the ventricles is seen. There is unchanged encephalomalacia and likely os is related to a prior infarct in the right frontal and right parietal lobes as well as to a lesser degree in the right temporal lobe. Chronic microvascular ischemic changes are present Brain: No midline shift. No intracranial masses or hemorrhage. Fernandes-white matter interface is norm al. Skull and face: Calvarium and visualized facial bones are intact, without suspicious lesions. Sinuses: Visualized sinuses and mastoids are clear. IMPRESSION: 1. No acute intracranial abnormality. 2. Encephalomalacia and likely os is related to remote right frontal, parietal, and temporal lobe inf arct. 3. Volume loss and chronic microvascular ischemic changes, similar to the prior exam. Findings were discussed with the emergency department at 1:58 PM on 08/14/2020. This study fulfills neurological imaging criteria for inclusion or exclusion of acute stroke therapie s based on available published neurological imaging guidelines. Reviewed by: Donavan Carias on 08/14/2020 2:01 PM PDT Approved by: Donavan Carias on 08/14/2020 2:01 PM PDT Station ID: [id number]
[2020-08-14 14:08] LABS: INR 2.8 (0.8-1.2); PT - PROTHROMBIN TIME 29.2 secs (9.9-12.6)
--- NOTE | 2020-08-14 14:11 | CT Report ---
PROCEDURE: ANGIO NECK W INDICATIONS: L sided weakness CONTRAST: IV CONTRAST: Optiray 320 ml: 100 PO CONTRAST: *NO PO CONTRAST TECHNIQUE: After the administration of intravenous contrast, 1.5 mm axial sections acquired from the aortic arch to the [place] of [place]. Coronal 3-D maximum intensity projection (MIP) and/or volume rendering ref ormats were then performed. For radiation dose reduction, the following was used: automated exposur e control, adjustment of mA and/or kV according to patient size. COMPARISON: 08/12/2018. Correlation is also made with the accompanying head CT angiogram, 08/14/2020. FINDINGS: Image quality: Excellent. Carotid system: The great vessels demonstrate a conventional anatomy as they arise from the aortic a rch. The origins of the common carotid arteries appear patent. The common carotid arteries demonstr ate normal calibers and courses. The bifurcation regions appear normal bilaterally. The internal ca rotid arteries demonstrate normal caliber and course. Posterior circulation: The origins of the vertebral arteries appear patent. The distal left vertebr al artery largely terminates in the left posterior inferior cerebellar artery. The more superior port ions of the vertebral arteries demonstrate normal course and caliber. The right vertebral artery is dominant to the left. There is streak artifact seen, which simulates a filling defect within the dist al right V2 segment. Soft tissues: Visualized neck soft tissues demonstrate no suspicious abnormalities. The thyroid is normal in size and there are no incidental findings. Bones: No suspicious bony lesions. Visualized cervical spine appears normally aligned. At least m oderate disc space narrowing can be seen at C5-C6 and C6-C7. IMPRESSION: No hemodynamically significant stenosis is detected. The estimate of stenosis included in the report of the imaging study was calculated using the NASCET method Reviewed by: Olvin Nagy MD on 08/14/2020 1:09 PM SUSHANT Approved by: Olvin Nagy MD on 08/14/2020 1:09 PM SUSHANT Station ID: [id number]
--- NOTE | 2020-08-14 14:14 | CT Report ---
PROCEDURE: ANGIO HEAD W/WO INDICATIONS: L sided weakness CONTRAST: IV CONTRAST: Optiray 320 ml: 100 PO CONTRAST: *NO PO CONTRAST TECHNIQUE: Precontrast 4.5 mm thick angled axial sections acquired from the foramen magnum to the vertex. Afte r the administration of intravenous contrast, 1 mm thick sections acquired through the [place] of [place] is. Postcontrast 4.5 mm thick sections then re-acquired from the foramen magnum to the vertex. 3-di mensional [id number]-ptbgoyucfv (MIP) and/or volume rendering reformats were acquired of the c entral intracranial vasculature. For radiation dose reduction, the following was used: automated ex posure control, adjustment of mA and/or kV according to patient size. COMPARISON: Correlation is made with prior head CT studies 08/14/2020, 08/05/2020, 05/15/2020. Correlati on is also made with the accompanying neck CT angiogram, 08/14/2020. FINDINGS: Image quality: Excellent. Anterior circulation: Intracranial internal carotid arteries are normal in size and flow. The flow within the paired anterior cerebral arteries is normal and symmetric. The flow within the middle cer ebral arteries is normal and symmetric. The anterior communicating artery is seen. No aneurysms are seen. Posterior circulation: Visualized portions of the vertebral arteries demonstrate normal caliber, and join to form a normal appearing basilar artery. The distal left vertebral artery largely terminates in the left posterior inferior cerebral artery. The right vertebral artery is dominant to the left. Incidental note is made of a prominent right posterior communicating artery, with a diminutive right P1 segment. This is attributed to a type origin of the right posterior cerebral artery, which i s considered to be a developmental variant of typically no clinical consequence. Flow within the po sterior cerebral arteries is normal and symmetric. No aneurysms are seen. CSF spaces: Ventricles are normal in size and shape. Basal cisterns are patent. No extra-axial flu id collections. Brain: No midline shift. No intracranial bleeds or masses. Fernandes-white matter interface appears int act. Encephalomalacia and volume loss can be seen involving the right posterior right frontal lobe, p arietal lobe, and temporal lobe, as before. Skull and face: Calvarium and facial bones appear intact, without suspicious lesions. Sinuses: Visualized sinuses and mastoids are clear. IMPRESSION: No significant intracranial arterial abnormalities are seen. [place] of [place] developmental anomalies are incidentally noted, which are not considered to be clini yohannes significant. No masses or abnormal enhancement can be seen. Remote right MCA distribution infarction. If there is strong clinical concern for a stroke, please consider a dedicated brain MRI for further e valuation (assuming that there is no contraindication to MRI). Reviewed by: Olvin Nagy MD on 08/14/2020 1:13 PM SUSHANT Approved by: Olvin Nagy MD on 08/14/2020 1:13 PM SUSHANT Station ID: [id number]
[2020-08-14 14:15] LABS: PARTIAL THROMBOPLASTIN TIME 32.8 secs (24.9-33.3)
[2020-08-14 14:18] LABS: ALBUMIN 4.1 g/dL (3.2-5.5); ALBUMIN/GLOBULIN RATIO 1.5 (1.0-2.2); BILIRUBIN,TOTAL 0.6 mg/dL (0.2-1.0); CALCIUM 8.9 mg/dL (8.5-10.3); CREATININE 0.6 mg/dL (0.4-1.0); POTASSIUM 3.8 mmol/L (3.5-5.0); TOTAL PROTEIN 6.8 g/dL (6.7-8.2)
[2020-08-14] MEDS ORDERED: SODIUM CHLORIDE FLUSH 0.9% 10 ML SYRINGE IVP PRN (15:12)
[2020-08-14] MEDS ORDERED: ONDANSETRON 4 MG/2 ML VIAL IVP PRN (15:12)
--- NOTE | 2020-08-14 15:28 | HISTORY & PHYSICAL EXAMINATION ---
Chief Complaint - Chief Complaint Chief Complaint: left side weakness History of Present Illness - Admitted From Admitted From:: ER - History Obtained From Records Reviewed: [facility] History obtained from: pt Exam Limitations: no - History of Present Illness HPI Comment/Other: Patient is a 74-year-old female with a past medical history Significantly For prior hemorrhagic stroke in 2018, hypertension, hyperlipidemia, CAD with status post of bypass, atrial fibrillation, arrhythmia, asthma, multiple sclerosis, claustrophobia, osteoarthritis, fibromyalgia, chronic back pain, who presents to the emergency department complaint of left-sided weakness on today. pt report she sudden onset stroke like symptoms when she ate her lunch today with her . Her noticed she was dropping her fork down the front of her, her Left facial droop, she presented slurred speech and her left arm weakness. pt struck her head about a week ago because her foot slipped on rugging and she fell forward. At that time she had a negative head CT and she was discharge to home. Today CT of head, CTA of head and neck show no significant intracranial anomalies. She is on warfarin. Her INR is 2.8 today. pt had hx of Hemorrhage stroke in 2018. pt had no TPA in ER. MRI of head was ordered in ER and pending. Given pt's above medical conditions, medical team was consulted to admit this pt for further management. Discussed the care goal with the patient, patient would like to have DNR for her code status History - Past Medical History Cardiovascular: reports: Hypertension, High cholesterol, Coronary artery disease, Atrial fibrillation, Arrhythmia Respiratory: reports: Asthma Neuro: reports: Multiple sclerosis : reports: Other Psych: reports: Claustrophobia Musculoskeletal: reports: Osteoarthritis, Fibromyalgia, Chronic back pain MRSA Hx?: No - Past Surgical History General: reports: Colonoscopy /[employer]: reports: Hysterectomy Cardiovascular: reports: CABG - Family & Social History Family History: Mother: , Father: Family History Comment/Other: Patient reported her father from cancer at age 82. Her mother from major heart attack at age 83. Social History Notes: Patient report she stopped smoking about 40 years ago. But she reported she drank one class of wine almost every day but she strongly rej ect she has alcoholic issue, she state this is her social life. she denies drug issue. - POLST Patient has POLST: Yes Meds/Allgy - Home Medications Home Medications: Ambulatory Orders Medication Instructions Recorded Confirmed Losartan [Cozaar] 100 mg PO DAILY 01/16/14 08/14/20 Omeprazole [Prilosec] 20 mg PO DAILY 01/16/14 08/14/20 atenoloL [Atenolol] 50 mg PO BID 08/12/14 08/14/20 Atorvastatin Calcium 20 mg DAILY 06/29/16 08/14/20 predniSONE [Prednisone] 5 mg PO DAILY 08/12/18 08/14/20 Warfarin [Coumadin] 2.5 mg PO DAILY 02/11/20 08/14/20 Escitalopram [Lexapro] 10 mg DAILY 08/14/20 08/14/20 - Allergies Allergies/Adverse Reactions: Allergies Allergy/AdvReac Type Severity Reaction Status Date / Time amoxicillin trihydrate * Allergy Rash Verified 08/14/20 13:42 [From Augmentin] nitrofurantoin Allergy Rash Verified 08/14/20 13:42 macrocrystalline * [From Macrodantin] potassium clavulanate * Allergy Rash Verified 08/14/20 13:42 [From Augmentin] lisinopril AdvReac Unknown Verified 08/14/20 13:42 Review of Systems - Constitutional Constitutional: reports: Weakness. denies: Fatigue, Fever, Chills, Diaphoresis, Night sweats - Eyes Eyes: denies: Pain, Blurred vision, Field loss, Vision loss - Ears, Nose & Throat Ears, Nose & Throat: denies: Ear pain, Nasal pain, Nosebleeds, Bleeding gums - Cardiovascular Cariovascular: denies: Irregular heart rate, Palpitations, Chest pain, Lightheadedness, Syncope, Exertional dyspnea, Decr. exercise tolerance - Respiratory Respiratory: denies: Cough, Sputum production, Wheezing, Orthopnea, SOB at rest, SOB with exertion - Gastrointestinal Gastrointestinal: denies: Abdominal pain, Constipation, Diarrhea, Rectal bleeding, Nausea, Vomiting - Genitourinary Genitourinary: denies: Dysuria, Incontinence - Musculoskeletal Musculoskeletal: reports: Muscle weakness. denies: Muscle pain, Muscle aches, Limited range of motion - Integumentary Integumentary: denies: Rash, Lumps - Neurological Neurological: reports: Focal weakness, Abnormal gait, Incoordination, Slurred speech, Other (left facial droop). denies: Headache, Dizziness, Numbness, Memory problems, Seizures - Psychiatric Psychiatric: denies: Depression, Delusions - Endocrine Endocrine: denies: Polyuria, Polyphagia - Hematologic/Lymphatic Hematologic/Lymphatic: denies: Lymphadenopathy Exam - Vital Signs Vital Signs: Vital Signs x48h Temp Pulse Resp BP Pulse Ox 08/14/20 13:55 69 94 H 114/75 100 08/14/20 13:36 36.4 C L 73 16 137/61 H 96 - Physical Exam General Appearance: positive: Alert, Mild distress. negative: Lethargic Eyes Bilateral: positive: Normal inspection, PERRL, No lid inflammation ENT: positive: ENT inspection nml, No signs of dehydration. negative: Purulent nasal drainage Neck: positive: Nml inspection, Trachea midline. negative: Thyromegaly, Tracheal deviation Respiratory: positive: Chest non-tender, No respiratory distress. negative: Wheezes, Rales, Rhonchi Cardiovascular: positive: Regular rate & rhythm, No murmur. negative: Tachycardia, Bradycardia, Systolic murmur, Diastolic murmur Peripheral Pulses: positive: 2+ Abdomen: positive: Non-tender, Nml bowel sounds, No distention. negative: Tenderness Back: positive: Nml inspection Skin: positive: Color nml, Warm, Dry. negative: Cyanosis, Diaphoresis, Pallor Extremities: positive: Non-tender, Nml appearance. negative: Full ROM, Calf tenderness Neurologic/Psychiatric: positive: Oriented x3, Mood/affect nml, Weakness, Sensory loss, Facial droop, Slurred/abnml speech. negative: Motor nml, Sensation nml Sepsis Event Note (H) - Evaluation Current Stage of Sepsis: Ruled out Conclusion/Plan - Problem List (1) Cerebrovascular accident (CVA) Conclusion/Plan: Patient suddenly onset left-sided weakness, facial droop, slurring speech. pt still present both upper and lower left extremities weakness, left facial droop, and slurred speech. Patient had a history of hemorrhagic stroke in 2018. Today CT and CTA of the head show Unremarkable on acute finding. MRI of the head show a new focus of acute Ischemic injury in the deep white matter immediately adjacent to the lateral boarder of right lateral ventricular, producing no significantly mass effective or causing parenchymal hemorrhage. Patient take her Coumadin for her a fibrillation, today INR is 2.8. CTA of head show no significant intracranial anomalies. pt has hx of Hemorrhage stroke in 2018. pt had no TPA in ER. I called neurologist in [place] for consult. called back, recommended no aspirin until INR below 2.0, hold Coumadin for one week. order Lipid to 80mg Daily, Allow blood pressure rise. Because the patient has a history of hemorrhagic stroke, start IVF help her rise BP, add Hydralazine PRN for SBP>200. Check lipid panel, start PT and OT, And speech therapist Consult, discussed with nurse for precaution to aspiration. pt may need inpt rehab. Hold Coumadin for one week, check daily PT/OT. will start Aspirin until INR<2.0 neuro check And hall monitor. Qualifiers: CVA mechanism: unspecified Qualified Code(s): I63.9 - Cerebral infarction, unspecified (2) A-fib Conclusion/Plan: Patient's heart rate is stable, and controlled. We will resume patient home medication atenolol after Pharmacy confirm, Hold Coumadin 24 to 48 hours for her stroke, continue check PT and INR, hall monitor. (3) Multiple sclerosis Conclusion/Plan: stable, pt appear not on acute MS flare. Patient reported she did not take any medication for MS yet. neuro check and closely monitor pt, followup with her neurologist (4) Hx of coronary artery disease Conclusion/Plan: stable, pt denies chest pain, will resume her home meds, continue vital and tele monitor (5) HTN (hypertension) Conclusion/Plan: we will let pt rise her BP, add Hydralazine as needed (6) HLD (hyperlipidemia) Conclusion/Plan: We will check lipid panel, add Lipitor 80 mg daily - Lab Results Fish Bones: 08/14/20 13:35 08/14/20 13:35 Core Measures - Anticipated LOS I expect patient to be DC'd or transferred within 96 hours.: Yes - DVT/VTE - Prophylaxis VTE/DVT Device ordered at admit?: Yes VTE/DVT Prophylaxis med ordered at admit?: Yes
[2020-08-14 15:34] LABS: BILIRUBIN,URINE NEGATIVE (NEGATIVE); GLUCOSE, URINE (UA) NEGATIVE (NEGATIVE); KETONES,URINE (UA) NEGATIVE (NEGATIVE); LEUKOCYTE ESTERASE, URINE NEGATIVE (NEGATIVE); NITRITE,URINE NEGATIVE (NEGATIVE); OCCULT BLOOD,URINE TRACE-INTA (NEGATIVE); PH,URINE 6.5 PH (5.0-7.5); PROTEIN,URINE 30 mg/dL (NEGATIVE); UROBILINOGEN,URINE 0.2 (NORMAL) E.U./dL (NORMAL)
[2020-08-14 15:35] LABS: CLARITY,URINE CLEAR (CLEAR)
[2020-08-14 15:42] LABS: BACTERIA,URINE Rare /HPF (None Seen); CASTS, URINE 0-2 Hyaline Casts /LPF; MUCUS,URINE Few Strands; RBC,URINE 0-5 /HPF (0-5); SQUAMOUS EPITHELIAL CELL,UR RARE Squamous (<= Few); WBC,URINE 0-3 /HPF (0-5)
--- OUTSIDE RECORDS SUMMARY | 2020-08-14 15:42 | EXTERNAL MEDICAL SUMMARY RPT | Continuity of Care Document ---
:1945 Demographics Phone Unavailable Preferred Language [place] Marital Status Unknown Mormonism Affiliation Unknown Race Unknown Ethnic Group Unknown Author Organization [place] Address [address] [phone] Phone Care Team Providers Name Role Phone Osborne Unavailable Unavailable Allergies Encounters Medications Problems date description facility [id number] [facility] Results
[2020-08-14] MEDS ORDERED: ASPIRIN CHEW 81 MG TABLET PO SCH (16:00)
[2020-08-14] MEDS ORDERED: SODIUM CHLORIDE 0.9% 1,000 ML IV SCH (16:00)
[2020-08-14 16:06] LABS: B. PARAPERTUSSIS- RESP PCR PAN NOT DETECTED; B. PERTUSSIS- RESP PCR PANEL NOT DETECTED; C. PNEUMONIAE- RESP PCR PANEL NOT DETECTED; CORONAVIRUS 229E-RESP PCR NOT DETECTED; CORONAVIRUS HKU1-RESP PCR NOT DETECTED; CORONAVIRUS NL63-RESP PCR NOT DETECTED; CORONAVIRUS OC43-RESP PCR NOT DETECTED; HUMAN METAPNEUMOVIRUS NOT DETECTED; INFLUENZA A- RESP PCR PANEL NOT DETECTED; INFLUENZA B - RESP PCR PANEL NOT DETECTED; M. PNEUMONIAE- RESP PCR PANEL NOT DETECTED; PARAINFLUENZA VIRUS 1 NOT DETECTED; PARAINFLUENZA VIRUS 2 NOT DETECTED; PARAINFLUENZA VIRUS 3 NOT DETECTED; PARAINFLUENZA VIRUS 4 NOT DETECTED; RHINOVIRUS/ENTEROVIRUS NOT DETECTED; RSV- RESP PCR PANEL NOT DETECTED; SARS-CoV-2 -RESP PCR PANEL NOT DETECTED
[2020-08-14] MEDS ORDERED: hydrALAZINE INJ 20 MG/ML VIAL IVP PRN (16:41)
--- NOTE | 2020-08-14 16:46 | MRI Report ---
PROCEDURE: Brain W/O INDICATIONS: L sided deficits TECHNIQUE: Noncontrast axial T1 spin echo, axial T2 fast spin echo, sagittal and axial FLAIR, coronal T2 fast sp in echo, axial gradient echo, axial diffusion and ADC through the brain. COMPARISON: 05/15/[address] FINDINGS: Image quality: Excellent. CSF Spaces: Basal cisterns are patent. No extra-axial fluid collections. Ventricles are asymmetric in size and shape, larger on the right, associated with a large region of chronic encephalomalacia r elated to prior right middle cerebral artery vascular distribution stroke in the past.. Brain: No intracranial masses or hemorrhage. Fernandes/white matter interface is normal. Brainstem appe ars normal. Diffusion-weighted images demonstrate a definite acute ischemic insult involving the zoe p white matter along the lateral border of the right this measures approximately 8 mm in diameter.. No chronic ischemic insults. Normal intravascular flow voids are present. Skull and face: Calvarium has normal marrow signal. Orbits appear normal. Sinuses: Sinuses and mastoids are clear. IMPRESSION: There is a large region of right hemispheric encephalomalacia related to prior chronic stroke involvi ng the right middle cerebral artery vascular distribution. This is long-standing. There is, however, a new focus of acute ischemic injury in the deep white matter immediately adjacent to the lateral bor tereso of the right lateral ventricle, producing no significant mass effect or causing parenchymal hemor rhage. As noted, this is clearly visible on the diffusion imaging pulse sequence and given its positi on and singular nature and likely represents a sequela of primary microvascular atherosclerotic disea se rather than embolus. Reviewed by: Devon Damon MD on 08/14/2020 4:45 PM PDT Approved by: Devon Damon MD on 08/14/2020 4:45 PM PDT Station ID: [id number]
[2020-08-14] MEDS: SODIUM CHLORIDE FLUSH 0.9% 10 ML SYRINGE IVP SCH (17:18)
[2020-08-14 20:32] LABS: ESTIMATED AVERAGE GLUCOSE 114 mg/dL (70-100); HEMOGLOBIN A1c% 5.6 % (4.27-6.07)
[2020-08-14] MEDS: ATORVASTATIN 40 MG TABLET PO SCH (20:45)
[2020-08-15] MEDS: SODIUM CHLORIDE FLUSH 0.9% 10 ML SYRINGE IVP SCH ×4 (00:19→23:43)
[2020-08-15 04:43] LABS: BASOPHILS # (AUTO) 0.1 10^3/uL (0.0-0.1); BASOPHILS % (AUTO) 0.7 %; EOSINOPHILS # (AUTO) 0.2 10^3/uL (0.0-0.7); HCT - HEMATOCRIT 37.6 % (37.0-47.0); LYMPHOCYTES # (AUTO) 2.2 10^3/uL (1.5-3.5); LYMPHOCYTES % (AUTO) 28.4 %; MEAN CORPUSCULAR HEMOGLOBIN 33.1 pg (27.0-31.0); MEAN CORPUSCULAR HGB CONC 31.9 g/dL (32.0-36.0); MEAN CORPUSCULAR VOLUME 103.9 fL (81.0-99.0); MONOCYTES # (AUTO) 0.8 10^3/uL (0.0-1.0); MONOCYTES % (AUTO) 9.9 %; NEUTROPHILS # (AUTO) 4.5 10^3/uL (1.5-6.6); NEUTROPHILS % (AUTO) 58.7 %; PLT - PLATELET COUNT 202 10^3/uL (130-450); RED BLOOD COUNT 3.62 10^6/uL (4.20-5.40); RED CELL DISTRIBUTION WIDTH 12.8 % (12.0-15.0); WHITE BLOOD COUNT 7.6 x10^3/uL (4.8-10.8)
[2020-08-15 04:49] LABS: INR 2.5 (0.8-1.2); PT - PROTHROMBIN TIME 26.4 secs (9.9-12.6)
[2020-08-15 04:53] LABS: CALCIUM 8.5 mg/dL (8.5-10.3); CREATININE 0.5 mg/dL (0.4-1.0); POTASSIUM 3.3 mmol/L (3.5-5.0)
[2020-08-15 05:01] LABS: CHOLESTEROL 167 mg/dL; HDL CHOLESTEROL 55 mg/dL; LDL CHOLESTEROL,CALCULATED 80 mg/dL; LDL/HDL RATIO 1.5 (<4.4); TRIGLYCERIDES 161 mg/dL; VLDL CHOLESTEROL 32 mg/dL
[2020-08-15] MEDS: PANTOPRAZOLE 40 MG TABLET PO SCH (06:04)
[2020-08-15] MEDS ORDERED: POTASSIUM CHLORIDE 20 MEQ TABLET PO ONE (07:13)
[2020-08-15] MEDS ORDERED: POTASSIUM CHLORIDE 20 MEQ/15 ML UDC PO SCH (08:00)
--- NOTE | 2020-08-15 08:03 | PHARMACY PROGRESS NOTE ---
- Best Possible Medication History Admit Date and Time: 08/14/20 1512 Processed by: Pharmacy Medication History completed: Yes Patient Interview: Completed Secondary Source(s): Pharmacy records, Insurance records As the person ultimately responsible for medication therapy, providers are able to order a medication from an existing home medication list in [facility] via the "Reconcile Routine" prior to Confirmation of that medication by service support representative. Such practice is discouraged except when the physician, in their clinical judgment, deems that a medical need exists for a medication without regard to previous use.
[2020-08-15] MEDS: predniSONE 5 MG TABLET PO SCH (08:21)
[2020-08-15] MEDS: ESCITALOPRAM 10 MG TABLET PO SCH (08:21)
--- NOTE | 2020-08-15 10:42 | PROVIDER PROGRESS NOTE ---
Assessment/Plan - Problem List (1) Cerebrovascular accident (CVA) Qualifiers: CVA mechanism: unspecified Qualified Code(s): I63.9 - Cerebral infarction, unspecified Assessment/Plan: 08/15 pt's facial droop is improved, but her left upper and lower extremities weakness are still present, slurred speech is still present as well. continue PT/OT, continue Lipitor. 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 Patient suddenly onset left-sided weakness, facial droop, slurring speech. pt still present both upper and lower left extremities weakness, left facial droop, and slurred speech. Patient had a history of hemorrhagic stroke in 2018. Today CT and CTA of the head show Unremarkable on acute finding. MRI of the head show a new focus of acute Ischemic injury in the deep white matter immediately adjac ent to the lateral boarder of right lateral ventricular, producing no significantly mass effective or causing parenchymal hemorrhage. Patient take her Coumadin for her a fibrillation, today INR is 2.8. CTA of head show no significant intracranial anomalies. pt has hx of Hemorrhage stroke in 2018. pt had no TPA in ER. I called neurologist in [place] for consult. called back, recommended no aspirin until INR below 2.0, hold Coumadin for one week. order Lipid to 80mg Daily, Allow blood pressure rise. Because the patient has a history of hemorrhagic stroke, start IVF help her rise BP, add Hydralazine PRN for SBP>200. Check lipid panel, start PT and OT, And speech therapist Consult, discussed with nurse for precaution to aspiration. pt may need inpt rehab. Hold Coumadin for one week, check daily PT/OT. will start Aspirin until INR<2.0 neuro check And marketing services vice president. (2) A-fib Conclusion/Plan: Patient's heart rate is stable, and controlled. We will resume patient home medication atenolol after Pharmacy confirm, Hold Coumadin 24 to 48 hours for her stroke, continue check PT and INR, marketing services vice president. (3) Multiple sclerosis Conclusion/Plan: 08/15 stable, pt appear not on acute MS flare. resume home Prednisone, neuro check and closely monitor pt, followup with her neurologist (4) Hx of coronary artery disease Conclusion/Plan: stable, pt denies chest pain, will resume her home meds, continue vital and tele monitor (5) HTN (hypertension) Conclusion/Plan: 08/15 we will let pt rise her BP on today, add Hydralazine as needed (6) HLD (hyperlipidemia) Conclusion/Plan: We will check lipid panel, add Lipitor 80 mg daily - Current Meds Current Meds: Current Medications Generic Name Dose Route Start Last Admin Trade Name Zakiya PRN Reason Stop Dose Admin Atorvastatin Calcium 80 mg 08/14/20 21:00 08/14/20 20:45 Atorvastatin 40 Mg Tablet PO 80 mg QPM [facility] Administration Escitalopram Oxalate 10 mg 08/15/20 09:00 08/15/20 08:21 Escitalopram 10 Mg Tablet PO 10 mg DAILY [facility] Administration Pantoprazole Sodium 40 mg 08/15/20 07:00 08/15/20 06:04 Pantoprazole 40 Mg Tablet PO 40 mg QDAC [facility] Administration Prednisone 5 mg 08/15/20 09:00 08/15/20 08:21 Prednisone 5 Mg Tablet PO 5 mg DAILY [facility] Administration Sodium Chloride 10 ml 08/14/20 17:00 08/15/20 08:21 Sodium Chloride Flush 0.9% 10 Ml Syringe IVP 10 ml 0100,0900,1700 [facility] Administration - Lab Result Fish Bone Diagrams: 08/15/20 04:30 08/15/20 04:30 - Additional Planning My Orders: My Active Orders 08/14/20 15:12 Activity Orders [RC] Q2HR IO [RC] IOSHIFT Initiate Bowel Care Protocol [RC] .protocol Initiate Line Care Protocol [RC] QSHIFT Initiate Personal Care Protoco [RC] .protocol Telemetry- [RC] Q4HR Vital Signs [RC] Q4H Acetaminophen [Tylenol] 650 mg PO Q4HR PRN Ondansetron Inj [Zofran Inj] 4 mg IVP Q6HR PRN Sodium Chloride Flush 0.9% [Normal Saline Flush 0.9%] 10 ml IVP PRN PRN Code Status [OTHERS] Routine Condition of Patient [OTHERS] Routine DVT Prophylaxis [OTHERS] Routine 08/14/20 15:15 IV Insert [RC] .ONCE 08/14/20 15:16 SCDs [RC] QSHIFT Social Work Consult [CONS] Routine Evaluate and Treat OT [OT] Routine Evaluate and Treat PT [PT] Routine 08/14/20 Dinner Dysphagia Mechanically Altered Diet [DIET] 08/14/20 16:41 hydrALAZINE INJ [Apresoline Inj] 10 mg IVP QID PRN 08/14/20 17:00 Sodium Chloride Flush 0.9% [Normal Saline Flush 0.9%] 10 ml IVP 0100,0900,1700 08/14/20 17:16 Code Status [OTHERS] Routine 08/14/20 17:31 Neuro Check [RC] Q4H 08/14/20 21:00 Atorvastatin [Lipitor] 80 mg PO QPM 08/15/20 07:00 Pantoprazole [Protonix] 40 mg PO QDAC 08/15/20 09:00 Escitalopram [Lexapro] 10 mg PO DAILY predniSONE [Deltasone] 5 mg PO DAILY 08/15/20 15:23 Echo Transthoracic Complete [ECHO] Stat 08/16/20 05:00 BMP - BASIC METABOLIC PANEL [CHEM] DAILYLAB CBC - COMP BLD CT W/AUTO DIFF [HEME] DAILYLAB PT WITH INR [COAG] DAILYLAB 08/17/20 05:00 BMP - BASIC METABOLIC PANEL [CHEM] DAILYLAB CBC - COMP BLD CT W/AUTO DIFF [HEME] DAILYLAB PT WITH INR [COAG] DAILYLAB 08/18/20 05:00 BMP - BASIC METABOLIC PANEL [CHEM] DAILYLAB CBC - COMP BLD CT W/AUTO DIFF [HEME] DAILYLAB PT WITH INR [COAG] DAILYLAB 08/19/20 05:00 BMP - BASIC METABOLIC PANEL [CHEM] DAILYLAB CBC - COMP BLD CT W/AUTO DIFF [HEME] DAILYLAB PT WITH INR [COAG] DAILYLAB Subjective - Subjective Patient Reports: Feeling Better Objective Vital Signs: Vital Signs - 24 hr 08/14/20 08/14/20 08/14/20 13:36 13:55 14:00 Temperature 36.4 C L Heart Rate 73 69 65 Heart Rate [ Brachial] Respiratory 16 94 H 16 Rate Blood Pressure 137/61 H 114/75 124/53 L Blood Pressure [Right Brachial artery] O2 Saturation 96 100 100 08/14/20 08/14/20 08/14/20 14:30 15:00 15:30 Temperature Heart Rate 58 L 58 L 58 L Heart Rate [ Brachial] Respiratory 17 16 17 Rate Blood Pressure 126/57 L 120/57 L 133/63 H Blood Pressure [Right Brachial artery] O2 Saturation 96 96 100 08/14/20 08/14/20 08/15/20 16:47 19:43 00:00 Temperature 37.6 C 37.3 C 36.7 C Heart Rate Heart Rate [ 60 58 L 61 Brachial] Respiratory 18 18 16 Rate Blood Pressure Blood Pressure 170/89 H 162/76 H 184/77 H [Right Brachial artery] O2 Saturation 97 95 95 08/15/20 08/15/20 04:34 07:28 Temperature 36.5 C 36.8 C Heart Rate Heart Rate [ 62 64 Brachial] Respiratory 16 18 Rate Blood Pressure Blood Pressure 174/64 H 174/72 H [Right Brachial artery] O2 Saturation 97 98 Oxygen O2 Source Room air I&O (Last 24 Hrs): Intake and Output Totals x24h 08/13/20 08/14/20 08/15/20 23:59 23:59 23:59 Intake Total 450 1240 Output Total 100 Balance 350 1240 General: Alert, Oriented x3, Cooperative, No acute distress HEENT: Atraumatic Neck: Supple Lymphatic: no adenopathy Neuro: Alert, Focal Deficits, Speech Slurred, Oriented Times 3 Cardiovascular: Regular rate, Normal S1, Normal S2 Respiratory: Chest non-tender, No respiratory distress Abdomen: Normal bowel sounds, Soft, No tenderness Extremities: Normal pulses - Results Results: Laboratory Results WBC 7.6 x10^3/uL (4.8-10.8) 08/15/20 04:30 RBC 3.62 10^6/uL (4.20-5.40) L 08/15/20 04:30 Hgb 12.0 g/dL (12.0-16.0) 08/15/20 04:30 Hct 37.6 % (37.0-47.0) 08/15/20 04:30 MCV 103.9 fL (81.0-99.0) H 08/15/20 04:30 MCH 33.1 pg (27.0-31.0) H 08/15/20 04:30 MCHC 31.9 g/dL (32.0-36.0) L 08/15/20 04:30 RDW 12.8 % (12.0-15.0) 08/15/20 04:30 Plt Count 202 10^3/uL (130-450) 08/15/20 04:30 MPV 11.0 fL (7.9-10.8) H 08/15/20 04:30 Neut # (Auto) 4.5 10^3/uL (1.5-6.6) 08/15/20 04:30 Lymph # (Auto) 2.2 10^3/uL (1.5-3.5) 08/15/20 04:30 Starr # (Auto) 0.8 10^3/uL (0.0-1.0) 08/15/20 04:30 Eos # (Auto) 0.2 10^3/uL (0.0-0.7) 08/15/20 04:30 Baso # (Auto) 0.1 10^3/uL (0.0-0.1) 08/15/20 04:30 Absolute Nucleated RBC 0.00 x10^3/uL 08/15/20 04:30 Nucleated RBC % 0.0 /100WBC 08/15/20 04:30 PT 26.4 secs (9.9-12.6) H 08/15/20 04:30 INR 2.5 (0.8-1.2) H 08/15/20 04:30 APTT 32.8 secs (24.9-33.3) 08/14/20 13:35 Sodium 140 mmol/L (135-145) 08/15/20 04:30 Potassium 3.3 mmol/L (3.5-5.0) L 08/15/20 04:30 Chloride 104 mmol/L (101-111) 08/15/20 04:30 Carbon Dioxide 26 mmol/L (21-32) 08/15/20 04:30 Anion Gap 10.0 (6-13) 08/15/20 04:30 BUN 10 mg/dL (6-20) 08/15/20 04:30 Creatinine 0.5 mg/dL (0.4-1.0) 08/15/20 04:30 Estimated GFR (MDRD) 121 (>89) 08/15/20 04:30 Glucose 105 mg/dL (70-100) H 08/15/20 04:30 Estimat Average Glucose 114 mg/dL (70-100) H 08/14/20 13:35 Hemoglobin A1c % 5.6 % (4.27-6.07) 08/14/20 13:35 Calcium 8.5 mg/dL (8.5-10.3) 08/15/20 04:30 Total Bilirubin 0.6 mg/dL (0.2-1.0) 08/14/20 13:35 AST 26 IU/L (10-42) 08/14/20 13:35 ALT 23 IU/L (10-60) 08/14/20 13:35 Alkaline Phosphatase 52 IU/L (42-121) 08/14/20 13:35 Total Protein 6.8 g/dL (6.7-8.2) 08/14/20 13:35 Albumin 4.1 g/dL (3.2-5.5) 08/14/20 13:35 Globulin 2.7 g/dL (2.1-4.2) 08/14/20 13:35 Albumin/Globulin Ratio 1.5 (1.0-2.2) 08/14/20 13:35 Triglycerides 161 mg/dL (-149) H 08/15/20 04:30 Cholesterol 167 mg/dL (-199) 08/15/20 04:30 LDL Cholesterol, Calc 80 mg/dL (-129) 08/15/20 04:30 VLDL Cholesterol 32 mg/dL 08/15/20 04:30 HDL Cholesterol 55 mg/dL (60-) L 08/15/20 04:30 LDL/HDL Ratio 1.5 (<4.4) 08/15/20 04:30 Cholesterol/HDL Ratio 3.0 (<4.4) 08/15/20 04:30 Lipase 27 U/L (22-51) 08/14/20 13:35 Urine Color YELLOW 08/14/20 15:17 Urine Clarity CLEAR (CLEAR) 08/14/20 15:17 Urine pH 6.5 PH (5.0-7.5) 08/14/20 15:17 Ur Specific [place] <=1.005 (1.002-1.030) 08/14/20 15:17 Urine Protein 30 mg/dL (NEGATIVE) H 08/14/20 15:17 Urine Glucose (UA) NEGATIVE mg/dL (NEGATIVE) 08/14/20 15:17 Urine Ketones NEGATIVE mg/dL (NEGATIVE) 08/14/20 15:17 Urine Occult Blood TRACE-INTA (NEGATIVE) 08/14/20 15:17 Urine Nitrite NEGATIVE (NEGATIVE) 08/14/20 15:17 Urine Bilirubin NEGATIVE (NEGATIVE) 08/14/20 15:17 Urine Urobilinogen 0.2 (NORMAL) E.U./dL (NORMAL) 08/14/20 15:17 Ur Leukocyte Esterase NEGATIVE (NEGATIVE) 08/14/20 15:17 Urine RBC 0-5 /HPF (0-5) 08/14/20 15:17 Urine WBC 0-3 /HPF (0-5) 08/14/20 15:17 Ur Squamous Epith Cells RARE Squamous (<= Few) 08/14/20 15:17 Urine Bacteria Rare /HPF (None Seen) 08/14/20 15:17 Urine Casts 0-2 Hyaline Casts /LPF 08/14/20 15:17 Urine Mucus Few Strands 08/14/20 15:17 Ur Microscopic Review INDICATED 08/14/20 15:17 Urine Culture Comments NOT INDICATED 08/14/20 15:17 Nasal Adenovirus (PCR) NOT DETECTED 08/14/20 15:05 Nasal B. parapertussis DNA (PCR) NOT DETECTED 08/14/20 15:05 Nasal Coronavir 229E PCR NOT DETECTED 08/14/20 15:05 Nasal Coronavir HKU1 PCR NOT DETECTED 08/14/20 15:05 Nasal Coronavir NL63 PCR NOT DETECTED 08/14/20 15:05 Nasal Coronavir OC43 PCR NOT DETECTED 08/14/20 15:05 Nasal Enterovir/Rhinovir PCR NOT DETECTED 08/14/20 15:05 Nasal Influenza B PCR NOT DETECTED 08/14/20 15:05 Nasal Influenza A PCR NOT DETECTED 08/14/20 15:05 Nasal Parainfluen 1 PCR NOT DETECTED 08/14/20 15:05 Nasal Parainfluen 2 PCR NOT DETECTED 08/14/20 15:05 Nasal Parainfluen 3 PCR NOT DETECTED 08/14/20 15:05 Nasal Parainfluen 4 PCR NOT DETECTED 08/14/20 15:05 Nasal RSV (PCR) NOT DETECTED 08/14/20 15:05 Nasal B.pertussis DNA PCR NOT DETECTED 08/14/20 15:05 Nasal C.pneumoniae (PCR) NOT DETECTED 08/14/20 15:05 Bubba Human Metapneumo PCR NOT DETECTED 08/14/20 15:05 Nasal M.pneumoniae (PCR) NOT DETECTED 08/14/20 15:05 Nasal SARS-CoV-2 (PCR) NOT DETECTED 08/14/20 15:05 - Procedures Procedures: Procedures COLONOSCOPY (01/17/14) Sepsis Event Note (H) - Evaluation Current Stage of Sepsis: Ruled out ABX Reporting Has patient been on IV antibiotics over the past 48 hours?: No Current Medications - Current Medications Current Medications: Active Medications Acetaminophen (Acetaminophen 325 Mg Tablet) 650 mg PO Q4HR PRN PRN Reason: Pain 1 to 4 Atorvastatin Calcium (Atorvastatin 40 Mg Tablet) 80 mg PO QPM [facility] Last Admin: 08/14/20 20:45 Dose: 80 mg Documented by: Escitalopram Oxalate (Escitalopram 10 Mg Tablet) 10 mg PO DAILY [facility] Last Admin: 08/15/20 08:21 Dose: 10 mg Documented by: Hydralazine HCl (Hydralazine Inj 20 Mg/Ml Vial) 10 mg IVP QID PRN PRN Reason: Hypertensive Emergency Ondansetron HCl (Ondansetron 4 Mg/2 Ml Vial) 4 mg IVP Q6HR PRN PRN Reason: Nausea / Vomiting Pantoprazole Sodium (Pantoprazole 40 Mg Tablet) 40 mg PO QDAC [facility] Last Admin: 08/15/20 06:04 Dose: 40 mg Documented by: Prednisone (Prednisone 5 Mg Tablet) 5 mg PO DAILY [facility] Last Admin: 08/15/20 08:21 Dose: 5 mg Documented by: Sodium Chloride (Sodium Chloride Flush 0.9% 10 Ml Syringe) 10 ml IVP PRN PRN PRN Reason: NEEDED PER PROVIDER ORDERS Sodium Chloride (Sodium Chloride Flush 0.9% 10 Ml Syringe) 10 ml IVP 0100,0900,1700 [facility] Last Admin: 08/15/20 08:21 Dose: 10 ml Documented by: Losartan [Cozaar] 100 mg PO DAILY 01/16/14 Omeprazole [Prilosec] 20 mg PO DAILY 01/16/14 atenoloL [Atenolol] 50 mg PO BID 08/12/14 Atorvastatin Calcium 20 mg DAILY 06/29/16 predniSONE [Prednisone] 5 mg PO DAILY 08/12/18 Warfarin [Coumadin] 2.5 mg PO DAILY 02/11/20 Escitalopram [Lexapro] 10 mg DAILY 08/14/20
[2020-08-15] MEDS ORDERED: LOSARTAN 50 MG TABLET PO SCH (15:07)
[2020-08-15] MEDS ORDERED: hydrALAZINE INJ 20 MG/ML VIAL IVP PRN (18:15)
[2020-08-15] MEDS: ATORVASTATIN 40 MG TABLET PO SCH (20:16)
[2020-08-15] MEDS: TEMAZEPAM 15 MG CAPSULE PO PRN (20:24)
[2020-08-15] MEDS: ACETAMINOPHEN 325 MG TABLET PO PRN (20:24)
[2020-08-15] MEDS ORDERED: atenoloL 25 MG TABLET PO SCH (21:00)
[2020-08-16 05:33] LABS: BASOPHILS # (AUTO) 0.1 10^3/uL (0.0-0.1); BASOPHILS % (AUTO) 0.9 %; EOSINOPHILS # (AUTO) 0.2 10^3/uL (0.0-0.7); EOSINOPHILS % (AUTO) 2.2 %; HGB - HEMOGLOBIN 13.1 g/dL (12.0-16.0); LYMPHOCYTES # (AUTO) 2.1 10^3/uL (1.5-3.5); LYMPHOCYTES % (AUTO) 27.7 %; MEAN CORPUSCULAR HEMOGLOBIN 33.2 pg (27.0-31.0); MEAN CORPUSCULAR HGB CONC 32.8 g/dL (32.0-36.0); MEAN CORPUSCULAR VOLUME 101.3 fL (81.0-99.0); MEAN PLATELET VOLUME 11.6 fL (7.9-10.8); MONOCYTES # (AUTO) 0.7 10^3/uL (0.0-1.0); MONOCYTES % (AUTO) 8.7 %; NEUTROPHILS # (AUTO) 4.5 10^3/uL (1.5-6.6); NEUTROPHILS % (AUTO) 60.4 %; PLT - PLATELET COUNT 217 10^3/uL (130-450); RED BLOOD COUNT 3.95 10^6/uL (4.20-5.40); RED CELL DISTRIBUTION WIDTH 12.7 % (12.0-15.0); WHITE BLOOD COUNT 7.4 x10^3/uL (4.8-10.8)
[2020-08-16 05:35] LABS: CALCIUM 8.8 mg/dL (8.5-10.3); CREATININE 0.6 mg/dL (0.4-1.0); POTASSIUM 3.5 mmol/L (3.5-5.0)
[2020-08-16] MEDS: PANTOPRAZOLE 40 MG TABLET PO SCH (06:01)
[2020-08-16 06:04] LABS: INR 1.6 (0.8-1.2); PT - PROTHROMBIN TIME 17.2 secs (9.9-12.6)
[2020-08-16] MEDS: SODIUM CHLORIDE FLUSH 0.9% 10 ML SYRINGE IVP SCH ×2 (08:29→18:17)
[2020-08-16] MEDS: predniSONE 5 MG TABLET PO SCH (08:29)
[2020-08-16] MEDS: ESCITALOPRAM 10 MG TABLET PO SCH (08:29)
[2020-08-16] MEDS: ASPIRIN CHEW 81 MG TABLET PO SCH (08:29)
[2020-08-16] MEDS ORDERED: LOSARTAN 50 MG TABLET PO SCH (09:00)
[2020-08-16] MEDS: ACETAMINOPHEN 325 MG TABLET PO PRN ×2 (09:24→20:43)
--- NOTE | 2020-08-16 10:27 | PROVIDER PROGRESS NOTE ---
Subjective - Prog Note Date Prog Note Date: 08/16/20 - Subjective Subjective: She reports worsening of her left upper extremity weakness today. She is unable to move it at all. She also feels that her left lower extremity is weaker than before. She feels the weakness started to began yesterday midday and has progressed. Denies any numbness. She does complain of bilateral cramping in her lower extremities at the thighs. Current Medications - Current Medications Current Medications: Active Medications Acetaminophen (Acetaminophen 325 Mg Tablet) 650 mg PO Q4HR PRN PRN Reason: Pain 1 to 4 Last Admin: 08/16/20 09:24 Dose: 650 mg Documented by: Aspirin (Aspirin Chew 81 Mg Tablet) 81 mg PO DAILY [facility] Last Admin: 08/16/20 08:29 Dose: 81 mg Documented by: Atorvastatin Calcium (Atorvastatin 40 Mg Tablet) 80 mg PO QPM [facility] Last Admin: 08/15/20 20:16 Dose: 80 mg Documented by: Escitalopram Oxalate (Escitalopram 10 Mg Tablet) 10 mg PO DAILY [facility] Last Admin: 08/16/20 08:29 Dose: 10 mg Documented by: Sodium Chloride (Normal Saline 0.9%) 1,000 mls @ 125 mls/hr IV .Q8H [facility] Ondansetron HCl (Ondansetron 4 Mg/2 Ml Vial) 4 mg IVP Q6HR PRN PRN Reason: Nausea / Vomiting Pantoprazole Sodium (Pantoprazole 40 Mg Tablet) 40 mg PO QDAC [facility] Last Admin: 08/16/20 06:01 Dose: 40 mg Documented by: Prednisone (Prednisone 5 Mg Tablet) 5 mg PO DAILY [facility] Last Admin: 08/16/20 08:29 Dose: 5 mg Documented by: Sodium Chloride (Sodium Chloride Flush 0.9% 10 Ml Syringe) 10 ml IVP PRN PRN PRN Reason: NEEDED PER PROVIDER ORDERS Sodium Chloride (Sodium Chloride Flush 0.9% 10 Ml Syringe) 10 ml IVP 0100,0900,1700 [facility] Last Admin: 08/16/20 08:29 Dose: 10 ml Documented by: Temazepam (Temazepam 15 Mg Capsule) 15 mg PO QPM PRN PRN Reason: Insomnia Last Admin: 08/15/20 20:24 Dose: 15 mg Documented by: Losartan [Cozaar] 100 mg PO DAILY 01/16/14 Omeprazole [Prilosec] 20 mg PO DAILY 01/16/14 atenoloL [Atenolol] 50 mg PO BID 08/12/14 Atorvastatin Calcium 20 mg DAILY 06/29/16 predniSONE [Prednisone] 5 mg PO DAILY 08/12/18 Warfarin [Coumadin] 2.5 mg PO DAILY 02/11/20 Escitalopram [Lexapro] 10 mg DAILY 08/14/20 Objective - Vital Signs/Intake & Output Reviewed Vital Signs: Yes Vital Signs: Vital Signs x48h Temp Pulse Resp BP BP Pulse Ox 08/16/20 09:00 64 08/16/20 08:16 37.2 C 69 16 137/79 H 96 08/16/20 04:42 36.6 C 66 16 161/80 H 95 Intake & Output: Intake & Output 08/13/20 08/14/20 08/15/20 08/16/20 23:59 23:59 23:59 23:59 Intake Total 450 1240 390 Output Total 100 900 400 Balance 350 340 -10 - Objective General Appearance: positive: No acute distress, Alert Eyes Bilateral: positive: Normal inspection, Conjunctivae nml ENT: positive: ENT inspection nml Neck: positive: Nml inspection Respiratory: positive: No respiratory distress. negative: Wheezes, Rales Cardiovascular: positive: Regular rate & rhythm, No murmur. negative: Tachycardia Abdomen: positive: Non-tender, No distention. negative: Tenderness Skin: positive: Warm, Dry Extremities: positive: No pedal edema Neurologic/Psychiatric: positive: Sensation nml, Weakness (0 out of 5 motor strength in the left upper extremity. Left lower extremity is about 1 out of 5. 5 out of 5 motor strength in her right upper and lower extremity.), Facial droop (Left-sided facial droop), Slurred/abnml speech (Dysarthria noted.). negative: Disoriented to person, Disoriented to place - Lab Results Fish Bones: 08/16/20 04:52 08/16/20 04:52 Other Labs: Lab Results x24hrs 08/16/20 08/16/20 08/16/20 Range/Units 05:47 04:52 04:52 WBC 7.4 (4.8-10.8) x10^3/uL RBC 3.95 L (4.20-5.40) 10^6/uL Hgb 13.1 (12.0-16.0) g/dL Hct 40.0 (37.0-47.0) % MCV 101.3 H (81.0-99.0) fL MCH 33.2 H (27.0-31.0) pg MCHC 32.8 (32.0-36.0) g/dL RDW 12.7 (12.0-15.0) % Plt Count 217 (130-450) 10^3/uL MPV 11.6 H (7.9-10.8) fL Neut # (Auto) 4.5 (1.5-6.6) 10^3/uL Lymph # (Auto) 2.1 (1.5-3.5) 10^3/uL Rhea # (Auto) 0.7 (0.0-1.0) 10^3/uL Eos # (Auto) 0.2 (0.0-0.7) 10^3/uL Baso # (Auto) 0.1 (0.0-0.1) 10^3/uL Absolute Nucleated RBC 0.00 x10^3/uL Nucleated RBC % 0.0 /100WBC PT 17.2 H (9.9-12.6) secs INR 1.6 H (0.8-1.2) Sodium 139 (135-145) mmol/L Potassium 3.5 (3.5-5.0) mmol/L Chloride 102 (101-111) mmol/L Carbon Dioxide 27 (21-32) mmol/L Anion Gap 10.0 (6-13) BUN 9 (6-20) mg/dL Creatinine 0.6 (0.4-1.0) mg/dL Estimated GFR (MDRD) 98 (>89) Glucose 98 (70-100) mg/dL Calcium 8.8 (8.5-10.3) mg/dL ABX Reporting Has patient been on IV antibiotics over the past 48 hours?: No Sepsis Event Note (H) - Evaluation Current Stage of Sepsis: Ruled out Assessment/Plan - Problem List (1) Cerebrovascular accident (CVA) Impression: MRI did confirm a right sided infarct. She unfortunately still has significant left upper and lower extremity deficits as well as a facial droop and dysarthria. Her weakness is more profound today I suspect is related to her relative hypotension she was normotensive overnight. I will discontinue all of antihypertensives and restart her on IV fluids to allow for permissive hyper tension for another day to see if this will assist with her deficits. We have started her on aspirin as well given her INR is now less than 2. Neurology had recommended resuming her warfarin about 1 week later and this can be done at rehab. If her neurologic deficits are stable, we will look to discharge her to inpatient rehab tomorrow at [place]. Continue with PT and OT. Check CK given her muscle cramping and the fact that she is on a statin. If this is within normal limits we will continue high dose atorvastatin. Qualifiers: Laterality of affected vessel: right Qualified Code(s): I63.9 - Cerebral infarction, unspecified (2) Paroxysmal atrial fibrillation Impression: She is in a sinus rhythm. We are holding her home atenolol to allow for permissive hypertension. Also holding her Coumadin given her recent stroke. This will be resumed 1 week later. (3) HTN (hypertension) Impression: We had decreased her hypertensives this morning given her blood pressures were in the 110s systolic overnight. Given her worsening neurologic deficits, I discontinued all of her antihypertensives for the time being we will start her on normal saline to allow for permissive hypertension given her worsening neurologic deficits. (4) Hx of coronary artery disease Impression: Stable. We are continuing statin and aspirin. Holding beta-jose to allow for permissive hypertension. (5) Multiple sclerosis Impression: Stable. Continuing her home prednisone.
[2020-08-16] MEDS: SODIUM CHLORIDE 0.9% 1,000 ML IV SCH ×2 (10:59→19:18)
[2020-08-16] MEDS: ATORVASTATIN 40 MG TABLET PO SCH (20:43)
[2020-08-16] MEDS: TEMAZEPAM 15 MG CAPSULE PO PRN (20:43)
[2020-08-17] MEDS: SODIUM CHLORIDE 0.9% 1,000 ML IV SCH (03:21)
[2020-08-17] MEDS: SODIUM CHLORIDE FLUSH 0.9% 10 ML SYRINGE IVP SCH ×2 (03:39→08:41)
[2020-08-17 05:22] LABS: BASOPHILS % (AUTO) 0.3 %; EOSINOPHILS # (AUTO) 0.2 10^3/uL (0.0-0.7); EOSINOPHILS % (AUTO) 1.2 %; HCT - HEMATOCRIT 36.8 % (37.0-47.0); LYMPHOCYTES # (AUTO) 1.9 10^3/uL (1.5-3.5); LYMPHOCYTES % (AUTO) 15.7 %; MEAN CORPUSCULAR HEMOGLOBIN 33.7 pg (27.0-31.0); MEAN CORPUSCULAR HGB CONC 32.6 g/dL (32.0-36.0); MEAN CORPUSCULAR VOLUME 103.4 fL (81.0-99.0); MEAN PLATELET VOLUME 11.6 fL (7.9-10.8); MONOCYTES % (AUTO) 8.4 %; NEUTROPHILS # (AUTO) 8.9 10^3/uL (1.5-6.6); NEUTROPHILS % (AUTO) 74.1 %; PLT - PLATELET COUNT 203 10^3/uL (130-450); RED BLOOD COUNT 3.56 10^6/uL (4.20-5.40); RED CELL DISTRIBUTION WIDTH 12.7 % (12.0-15.0); WHITE BLOOD COUNT 12.1 x10^3/uL (4.8-10.8)
[2020-08-17 05:29] LABS: INR 1.3 (0.8-1.2)
[2020-08-17 05:30] LABS: CALCIUM 8.2 mg/dL (8.5-10.3); CREATININE 0.5 mg/dL (0.4-1.0); POTASSIUM 3.2 mmol/L (3.5-5.0)
[2020-08-17] MEDS: PANTOPRAZOLE 40 MG TABLET PO SCH (06:43)
[2020-08-17] MEDS ORDERED: POTASSIUM CHLORIDE 20 MEQ TABLET PO ONE (07:28)
--- NOTE | 2020-08-17 08:23 | DISCHARGE SUMMARY ---
"Discharge Summary Admit Date: 08/14/20 Discharge Date: 08/17/20 Discharging Provider: Elvis Sadler Primary Care Provider: Matteo Osborne Code Status: Do Not Attempt Resuscitation Condition at Discharge: Stable Discharge Disposition: 02 Transfer Acute Care Hosp Discharge Facility Name: [facility] - DIAGNOSES Admission Diagnoses: Cerebrovascular accident A. fib Multiple sclerosis History of coronary artery disease Hypertension Hyperlipidemia Discharge Diagnoses with Status of Each Condition: Cerebrovascular accident - stable. Paroxysmal atrial fibrillation - stable. Hypertension - stable. History of coronary artery disease - stable. Multiple sclerosis - stable. - HPI History of Present Illness: H&P per AGUSTIN Mcgovern: Patient is a 74-year-old female with a past medical history Significantly For prior hemorrhagic stroke in 2018, hypertension, hyperlipidemia, CAD with status post of bypass, atrial fibrillation, arrhythmia, asthma, multiple sclerosis, claustrophobia, osteoarthritis, fibromyalgia, chronic back pain, who presents to the emergency department complaint of left-sided weakness on today. pt report she sudden onset stroke like symptoms when she ate her lunch today with her . Her noticed she was dropping her fork down the front of her, her Left facial droop, she presented slurred speech and her left arm weakness. pt struck her head about a week ago because her foot slipped on rugging and she fell forward. At that time she had a negative head CT and she was discharge to home. Today CT of head, CTA of head and neck show no significant intracranial anomalies. She is on warfarin. Her INR is 2.8 today. pt had hx of Hemorrhage stroke in 2018. pt had no TPA in ER. MRI of head was ordered in ER and pending. Given pt's above medical conditions, medical team was consulted to admit this pt for further management. Discussed the care goal with the patient, patient would like to have DNR for her code status - CONSULTS | PROCEDURES Procedures: Preliminary echocardiogram report on August 15 revealed an ejection fraction of 65 to 70%. Grade 2 diastolic dysfunction. No evidence of aortic stenosis. Trace mitral regurgitation. No mass or thrombus. - HOSPITAL COURSE Hospital Course: She was admitted to the floor for a suspected stroke. She went in with dysarthria, left facial droop, left upper extremity and lower extremity weakness. Her Coumadin was held given the stroke and her home antihypertensives were held to allow for permissive hypertension. MRI was obtained which showed a new area of acute ischemic injury adjacent to lateral border of the right lateral ventricle which is likely a sequela of primary microvascular atherosclerotic disease other than embolus. This was discussed with neurology who recommended initiating aspirin once her INR was less than 2.0 and to resume Coumadin in 1 week. We also increased her atorvastatin to 80 mg in the evening. She was seen by physical therapy and she had a waxing and waning of her deficits. She was initially able to move her left upper extremity slightly with minimal grasp. The following day, she was unable to move her left upper extremity whatsoever. She still had about 2-3 out of 5 motor strength in her left lower extremity. Her blood pressure meds were resumed after 24 hours but were later discontinued given her worsening deficits as her blood pressure was now in the 130s and so we started her on normal saline to allow a rise in her blood pressure. Despite this, she has had minimal improvement in her left upper extremity deficit. Her left lower extremity remains the same at about 2-3 out of 5 motor strength. She has been evaluated by physical therapy and inpatient rehab was recommended. I did speak with neurology at [facility] the day of discharge. They did recommend once again to continue aspirin 81 mg daily and her Coumadin can be resumed on August 21. The aspirin should be continued until her INR is therapeu tic. She was previously on 2.5 mg of Coumadin daily. They recommended that she follow-up with her primary care provider to consider a NOAC in the future. They also agreed with lowering her blood pressure gradually over the next week and therefore I have decreased her atenolol dose to 25 mg twice daily and her losartan to 50 mg daily on discharge. These antihypertensives can be titrated at rehab. Also of note, neurology at [facility] reviewed her outpatient records patient does have cervical and lumbar spondylosis. She is supposed to be following up with surgery on an outpatient basis for consideration of surgical intervention. Neurology recommended outpatient follow-up with the patient's neurologist in about 2 to 4 weeks. - ALLERGIES Allergies/Adverse Reactions: Allergies Allergy/AdvReac Type Severity Reaction Status Date / Time amoxicillin trihydrate * Allergy Rash Verified 08/14/20 13:42 [From Augmentin] nitrofurantoin Allergy Rash Verified 08/14/20 13:42 macrocrystalline * [From Macrodantin] potassium clavulanate * Allergy Rash Verified 08/14/20 13:42 [From Augmentin] lisinopril AdvReac Unknown Verified 08/14/20 13:42 - MEDICATIONS Home Medications: Ambulatory Orders Medication Instructions Recorded Confirmed Omeprazole [Prilosec] 20 mg PO DAILY 01/16/14 08/14/20 predniSONE [Prednisone] 5 mg PO DAILY 08/12/18 08/14/20 Escitalopram [Lexapro] 10 mg DAILY 08/14/20 08/14/20 Aspirin Chewable [[facility] 81 mg PO DAILY #30 tablet 08/17/20 Aspirin] Atorvastatin [Lipitor] 80 mg PO QPM #30 tablet 08/17/20 Losartan [Cozaar] 50 mg PO DAILY #30 tablet 08/17/20 atenoloL [Tenormin] 25 mg PO BID #30 tablet 08/17/20 - PHYSICAL EXAM AT DISCHARGE General Appearance: positive: No acute distress Eyes Bilateral: positive: Normal inspection, Conjunctivae nml ENT: positive: ENT inspection nml Neck: positive: Nml inspection Respiratory: positive: No respiratory distress. negative: Wheezes Cardiovascular: positive: Regular rate & rhythm, No murmur. negative: Tachycardia Abdomen: positive: Non-tender, No distention. negative: Tenderness, Guarding, Rebound Skin: positive: Warm, Dry Extremities: positive: No pedal edema Neurologic/Psychiatric: positive: Sensation nml, Weakness (She has 0 out of 5 strength in her left upper extremity. She has about 2-3 out of 5 motor strength in her left lower extremity. Sensation is intact in all 4 extremities.), Facial droop (Left-sided facial droop.), Slurred/abnml speech. negative: Motor nml, Disoriented to person, Disoriented to place Physical Exam Other/Comments: Vital Signs - 24 hr 08/16/20 08/17/20 08/17/20 19:42 00:05 05:00 Temperature 36.6 C 36.7 C 36.5 C Heart Rate [ 78 67 82 Brachial] Respiratory 18 16 17 Rate Blood Pressure 160/58 H 199/85 H [Left Brachial artery] Blood Pressure 159/57 H [Right Brachial artery] O2 Saturation 96 94 97 08/17/20 08/17/20 09:00 12:46 Temperature 37.1 C 36.9 C Heart Rate [ 80 81 Brachial] Respiratory 16 17 Rate Blood Pressure 157/83 H 167/58 H [Left Brachial artery] Blood Pressure [Right Brachial artery] O2 Saturation 98 98 Oxygen O2 Source Room air - LABS Result Diagrams: 08/17/20 04:35 08/17/20 04:35 - DIAGNOSTIC IMAGING Diagnostic Imaging Results: Final report reviewed Diagnostic Imaging Results Comments: CT of the head on August 14 showed no acute intracranial abnormality. Encephalomalacia is related to remote right frontal, parietal, and temporal lobe infarct. Volume loss and chronic microvascular ischemic changes, similar to the prior exam. CTA of the neck showed no hemodynamically significant stenosis. CTA of the head showed no significant intracranial arterial abnormalities are se en. [place] of [place] developmental anomalies are incidentally noted, which are not considered to be clinically significant. No masses or abnormal enhancement can be seen. Remote right MCA distribution infarction. MRI of the brain without contrast on August 14 revealed a large region of right hemispheric encephalomalacia related to prior chronic stroke involving the right middle cerebral artery vascular distribution. This is longstanding. There is, however, a new focus of acute ischemic injury in the deep white matter immediately adjacent to the lateral border of the right lateral ventricle, producing no significant mass-effect or causing parenchymal hemorrhage. As noted, this is clearly visible on the diffusion imaging pulse sequence and given the position and singular nature and likely represents a sequela of primary microvascular atherosclerotic disease rather than embolus. - SEPSIS Current Stage of Sepsis: Ruled out - FOLLOW UP Follow Up: Neurology recommended once again to continue aspirin 81 mg daily and her Coumadin can be resumed on August 21. The aspirin should be continued until her INR is therapeutic. They recommended that she follow-up with her primary care provider to consider a NOAC in the future. They also agreed with lowering her blood pressure gradually over the next week and therefore I have decreased her atenolol dose to 25 mg twice daily and her losartan to 50 mg daily on discharge. These antihypertensives can be titrated at rehab. Also of note, neurology at [facility] reviewed her outpatient records patient does have cervical and lumbar spondylosis. She is supposed to be following up with surgery on an outpatient basis for consideration of surgical intervention. Neurology recommended outpatient follow-up with the patient's neurologist in about 2 to [address] Day Christy at [facility]. - TIME SPENT Time Spent in Discharge (Minutes): 34"
[2020-08-17] MEDS: ASPIRIN CHEW 81 MG TABLET PO SCH (08:41)
[2020-08-17] MEDS: ESCITALOPRAM 10 MG TABLET PO SCH (08:41)
[2020-08-17] MEDS: predniSONE 5 MG TABLET PO SCH (08:41)
[2020-08-17] MEDS ORDERED: LOSARTAN 50 MG TABLET PO SCH (09:00)
--- NOTE | 2020-08-17 10:13 | Discharge Plan ---
Discharge Plan Problem Reviewed?: Yes Disposition: 02 Transfer Acute Care Hosp Condition: Stable Prescriptions: Losartan [Cozaar] 50 mg PO DAILY #30 tablet Atorvastatin [Lipitor] 80 mg PO QPM #30 tablet Aspirin Chewable [[facility] Aspirin] 81 mg PO DAILY #30 tablet atenoloL [Tenormin] 25 mg PO BID #30 tablet Diet: Cardiac Health Concerns: You were admitted to the hospital because of stroke. You had left-sided arm and leg weakness as well as slurred speech and a facial droop. We did MRI which confirmed the stroke. You have been working with physical therapy and although you still have deficits, it is felt that you would benefit from inpatient rehab. You are now stable for discharge to an inpatient rehab facility to continue your treatment. Plan of Treatment: You will be taking aspirin 81 mg once a day for another few days and then your Coumadin will be resumed on August 21. We are holding your Coumadin for the next few days because of the recent stroke and risk of bleeding. We have also decreased your blood pressure medications for the time being as we will want to control your blood pressure over the next few weeks given your recent stroke. Care Goals: The goal is to go to rehab in hopes of making a full neurological recovery. Assessment: The patient and family expressed understanding of the treatment plan. Additional Instructions or Follow Up instructions: You will need to follow-up with your neurologist in about 2 to 4 weeks. You will also need to follow-up with the surgeon that you were referred to for consideration of spinal surgery. Please follow-up with your primary care provider to consider a different blood thinner compared to Coumadin such as Eliquis or Xarelto. No Smoking: If you smoke, Please STOP! Call for help. Follow-up with: Matteo Osborne MD [Primary Care Provider] -
[2020-08-17] MEDS: ACETAMINOPHEN 325 MG TABLET PO PRN (12:01)
[2020-08-17 12:22] LABS: CORONAVIRUS 229E-RESP PCR NOT DETECTED; CORONAVIRUS HKU1-RESP PCR NOT DETECTED; CORONAVIRUS NL63-RESP PCR NOT DETECTED; CORONAVIRUS OC43-RESP PCR NOT DETECTED; HUMAN METAPNEUMOVIRUS NOT DETECTED; INFLUENZA A- RESP PCR PANEL NOT DETECTED; RHINOVIRUS/ENTEROVIRUS NOT DETECTED; SARS-CoV-2 -RESP PCR PANEL NOT DETECTED
[2020-08-17 12:23] LABS: B. PARAPERTUSSIS- RESP PCR PAN NOT DETECTED; B. PERTUSSIS- RESP PCR PANEL NOT DETECTED; C. PNEUMONIAE- RESP PCR PANEL NOT DETECTED; INFLUENZA B - RESP PCR PANEL NOT DETECTED; M. PNEUMONIAE- RESP PCR PANEL NOT DETECTED; PARAINFLUENZA VIRUS 1 NOT DETECTED; PARAINFLUENZA VIRUS 2 NOT DETECTED; PARAINFLUENZA VIRUS 3 NOT DETECTED; PARAINFLUENZA VIRUS 4 NOT DETECTED; RSV- RESP PCR PANEL NOT DETECTED
[2020-08-17 12:48] VITALS: BP 167/58
== END 2020-08-17 12:40 | disposition short-term general hospital (02) | DRG 65 ==
LOC: EDUNIT# → ED 13:30 → MS2 15:12
PROVIDERS: ADMIT Nurse Practitioner Gerontology; ATTEND Internal Medicine
DX: I63.9 Cerebral infarction, unspecified (principal); G81.94 Hemiplegia, unspecified affecting left nondominant side; R29.810 Facial weakness; R47.01 Aphasia; R27.0 Ataxia, unspecified; R47.81 Slurred speech; I10 Essential (primary) hypertension; I48.91 Unspecified atrial fibrillation; R29.706 NIHSS score 6; R47.1 Dysarthria and anarthria; I48.0 Paroxysmal atrial fibrillation; Z20.822 Contact with and (suspected) exposure to COVID-19; I25.10 Atherosclerotic heart disease of native coronary artery without angina pectoris; E78.00 Pure hypercholesterolemia, unspecified; G35 Multiple sclerosis; E78.5 Hyperlipidemia, unspecified; J45.909 Unspecified asthma, uncomplicated; Z66 Do not resuscitate; Z95.1 Presence of aortocoronary bypass graft; Z79.01 Long term (current) use of anticoagulants; Z86.73 Personal history of transient ischemic attack (TIA), and cerebral infarction without residual deficits; G93.89 Other specified disorders of brain; Z87.891 Personal history of nicotine dependence
CPT/HCPCS: 36415; 70450; 70496; 70498; 70551; 80048; 80053; 80061; 81001; 82550; 83036; 83690; 85025; 85610; 85730; 87631; 93005; 93306; 97112; 97162; 97167; 97530; 99284; 99285; A9270; J7512; 0202U; 81003; 83721; 87086

== ENCOUNTER 2020-08-17 12:45 | Outpatient (CLI) | payer MEDICARE, OTHER | END 2020-08-17 12:46 | disposition critical access hospital (66) | LOC: EMS 12:45 | PROVIDERS: ATTEND Internal Medicine | DX: I63.9 Cerebral infarction, unspecified (principal) | CPT/HCPCS: A0425; A0428 ==

== ENCOUNTER 2021-02-26 09:50 | Emergency (ER) | payer MEDICARE, OTHER ==
--- NOTE | 2021-02-26 10:12 | ED Physician Documentation ---
History of Present Illness - Stated complaint Stated Complaint: WEAKNESS - Chief complaint Chief Complaint: General - History obtained from History obtained from: Patient - History of Present Illness Timing: How many weeks ago (2) - Additonal information Additional information: 75-year-old female who has had a CVA in August of this year and has a history of MS has developed increased weakness over the past week and a half. She indicates that she has been treated for urinary tract infection despite not having the typical symptoms that she has with urinary burning. She did not feel there was any change in her symptoms of weakness associated with this treatment. She denies any vomiting or diarrhea. She denies any fever or sweats. She believes she has been drinking fluids adequately. She denies behavioral modification causing reduced fluid intake as a result of urinary symptoms. Review of Systems Constitutional: reports: Fatigue. denies: Fever, Chills Eyes: denies: Decreased vision Nose: denies: Congestion Throat: denies: Sore throat Cardiac: denies: Chest pain / pressure, Palpitations Respiratory: denies: Dyspnea, Cough GI: denies: Abdominal Pain, Nausea, Vomiting, Constipation, Diarrhea : reports: Frequency. denies: Dysuria Skin: denies: Rash Musculoskeletal: denies: Neck pain, Back pain, Extremity pain Neurologic: reports: Generalized weakness. 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 Cardiovascular: CABG - Present Medications Home Medications: Ambulatory Orders Medication Instructions Recorded Confirmed Omeprazole [Prilosec] 20 mg PO DAILY 01/16/14 02/26/21 Atorvastatin [Lipitor] 80 mg PO QPM #30 tablet 08/17/20 02/26/21 Baclofen 10 mg PO DAILY 02/26/21 02/26/21 DULoxetine [Cymbalta] 20 mg PO BID 02/26/21 02/26/21 Gabapentin [Neurontin] 300 mg PO DAILY 02/26/21 02/26/21 Losartan [Cozaar] 100 mg PO DAILY 02/26/21 02/26/21 Mecobalamin [B12 Active] 1,000 mcg PO DAILY 02/26/21 02/26/21 Melatonin/Pyridoxine [Melatonin 5 6 mg PO DAILY 02/26/21 02/26/21 mg Tablet] Metoprolol Succinate [Toprol Xl] 25 mg PO DAILY 02/26/21 02/26/21 Sennosides/Docusate Sodium 50 mg PO DAILY 02/26/21 02/26/21 [Senna-S 8.6-50 mg Tablet] Vitamin B Complex Vit C No.3 [B 0.8 mg PO DAILY 02/26/21 02/26/21 Complex with Vitamin C] Warfarin [Coumadin] 2.5 mg PO DAILY 02/26/21 02/26/21 amLODIPine [Norvasc] 2.5 mg 02/26/21 buPROPion [Wellbutrin Sr] 100 mg PO BID 02/26/21 02/26/21 - Allergies Allergies/Adverse Reactions: Allergies Allergy/AdvReac Type Severity Reaction Status Date / Time amoxicillin trihydrate * Allergy Rash Verified 02/26/21 10:03 [From Augmentin] nitrofurantoin Allergy Rash Verified 02/26/21 10:03 macrocrystalline * [From Macrodantin] potassium clavulanate * Allergy Rash Verified 02/26/21 10:03 [From Augmentin] lisinopril AdvReac Unknown Verified 02/26/21 10:03 - Social History Does the pt smoke?: No Smoking Status: Never smoker Does the pt drink ETOH?: Yes Does the pt have substance abuse?: No - Immunizations Immunizations are current?: Yes - POLST Patient has POLST: Yes PD ED PE NORMAL - Vitals Vital signs reviewed: Yes (normal ) - General General: Alert and oriented X 3, No acute distress, Well developed/nourished - HEENT HEENT: Atraumatic, PERRL, EOMI - Neck Neck: Supple, no meningeal sign, No bony TTP - Cardiac Cardiac: RRR, No murmur - Respiratory Respiratory: No respiratory distress, Clear bilaterally, Other (requires help to sit up in bed) - Abdomen Abdomen: Soft, Non tender - Back Back: No CVA TTP, No spinal TTP - Derm Derm: Normal color, Warm and dry, No rash - Extremities Extremities: No deformity, No edema - Neuro Neuro: Alert and oriented X 3, 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 engineer 2-12 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, No motor deficit, No sensory deficit, Normal speech Eye Opening: Spontaneous Motor: Obeys Commands Verbal: Oriented GCS Score: 15 - Psych Psych: Normal mood, Normal affect Results - Vitals Vitals: Vital Signs - 24 hr 02/26/21 02/26/21 02/26/21 09:58 12:03 14:00 Temperature 36.0 C L Heart Rate 74 74 80 Respiratory 18 15 16 Rate Blood Pressure 123/63 124/62 144/76 H O2 Saturation 98 100 98 02/26/21 02/26/21 15:10 16:07 Temperature 36.4 C L Heart Rate 82 80 Respiratory 16 Rate Blood Pressure 140/72 H O2 Saturation 100 100 Oxygen O2 Source Room air - Labs Labs: Laboratory Tests 02/26/21 02/26/21 02/26/21 10:39 10:39 10:48 WBC 7.2 RBC 3.89 L Hgb 12.6 Hct 38.5 MCV 99.0 MCH 32.4 H MCHC 32.7 RDW 13.2 Plt Count 267 MPV 10.5 Neut # (Auto) 4.9 Lymph # (Auto) 1.5 [place] # (Auto) 0.6 Eos # (Auto) 0.1 Baso # (Auto) 0.1 Absolute Nucleated RBC 0.00 Nucleated RBC % 0.0 PT INR Sodium 138 Potassium 3.3 L Chloride 100 L Carbon Dioxide 30 Anion Gap 8.0 BUN 14 Creatinine 0.4 Estimated GFR (MDRD) 156 Glucose 111 H Lactic Acid 1.3 Calcium 8.8 Total Bilirubin 0.5 AST 22 ALT 25 Alkaline Phosphatase 54 Total Protein 7.2 Albumin 3.8 Globulin 3.4 Albumin/Globulin Ratio 1.1 Lipase 26 Urine Color Urine Clarity Urine pH Ur Specific [place] Urine Protein Urine Glucose (UA) Urine Ketones Urine Occult Blood Urine Nitrite Urine Bilirubin Urine Urobilinogen Ur Leukocyte Esterase Urine RBC Urine WBC Ur Squamous Epith Cells Urine Bacteria Ur Microscopic Review Urine Culture Comments 02/26/21 02/26/21 12:38 14:21 WBC RBC Hgb Hct MCV MCH MCHC RDW Plt Count MPV Neut # (Auto) Lymph # (Auto) [place] # (Auto) Eos # (Auto) Baso # (Auto) Absolute Nucleated RBC Nucleated RBC % PT 40.4 H INR 3.6 H Sodium Potassium Chloride Carbon Dioxide Anion Gap BUN Creatinine Estimated GFR (MDRD) Glucose Lactic Acid Calcium Total Bilirubin AST ALT Alkaline Phosphatase Total Protein Albumin Globulin Albumin/Globulin Ratio Lipase Urine Color YELLOW Urine Clarity CLEAR Urine pH 6.5 Ur Specific [place] 1.010 Urine Protein NEGATIVE Urine Glucose (UA) NEGATIVE Urine Ketones NEGATIVE Urine Occult Blood TRACE-INTA Urine Nitrite POSITIVE H Urine Bilirubin NEGATIVE Urine Urobilinogen 0.2 (NORMAL) Ur Leukocyte Esterase NEGATIVE Urine RBC 0-5 Urine WBC 0-3 Ur Squamous Epith Cells RARE Squamous Urine Bacteria Moderate H Ur Microscopic Review INDICATED Urine Culture Comments INDICATED - Rads (name of study) chest Radiology: Prelim report reviewed (Impression: Finding may represent mild reactive airway disease such as bronchitis or viral illness. No definite focal infiltrate, pleural effusion or pneumothorax.), EMP read indepedently, See rad report Procedures - IVC sono (time) 1020 Bedside IVC sono: IVC measures (cm) (0.61), IVC collapsed c insp (cm) (complete), Profound dehydration (est 3 liter deficit) PD MEDICAL DECISION MAKING - ED course Complexity details: reviewed results, re-evaluated patient, considered differential, d/w patient ED course: 75 y/o female with profound dehydration complains of weakness. She is denying symptoms of urinary tract infection even though she has been told she has infection has been placed on antibiotic. She has finished her antibiotic. Today her urine is without obvious infection but does make grade for culture. Patient felt much improved after IV hydration and her daughter came in to assist with transfer and indicates the patient is back to her baseline as far as her strength goes and her level of confusion. The patient would like to go home. We discussed reasons why the patient may be dehydrated and after some time the daughter realized that the patient really did not get out of bed yesterday and may not have consumed any liquids. She did not get out of bed because she was not feeling well to begin with. Departure - Departure Disposition: 01 Home, Self Care Clinical Impression: Dehydration determined by examination Condition: Stable Instructions: ED Dehydration Follow-Up: Matteo Osborne MD [Primary Care Provider] - Comments: Shireen, today you were significantly dehydrated and this is a likely cause of your weakness. We were able to provide 2 liters of intravenous saline. My estimation from evaluation of your inferior vena cava was that you may be 3 Liters depressed and the recommendation is to continue to hydrate today as much as you can tolerate. Try to get an additional quart of fluid in. Discharge Date/Time: 02/26/21 16:14
[2021-02-26] MEDS ORDERED: SODIUM CHLORIDE 0.9% 1,000 ML IV STA ×2 (10:27→13:22)
[2021-02-26 10:56] LABS: BASOPHILS # (AUTO) 0.1 10^3/uL (0.0-0.1); BASOPHILS % (AUTO) 0.8 %; EOSINOPHILS # (AUTO) 0.1 10^3/uL (0.0-0.7); EOSINOPHILS % (AUTO) 1.9 %; HCT - HEMATOCRIT 38.5 % (37.0-47.0); HGB - HEMOGLOBIN 12.6 g/dL (12.0-16.0); LYMPHOCYTES # (AUTO) 1.5 10^3/uL (1.5-3.5); LYMPHOCYTES % (AUTO) 21.1 %; MEAN CORPUSCULAR HEMOGLOBIN 32.4 pg (27.0-31.0); MEAN CORPUSCULAR HGB CONC 32.7 g/dL (32.0-36.0); MEAN PLATELET VOLUME 10.5 fL (7.9-10.8); MONOCYTES # (AUTO) 0.6 10^3/uL (0.0-1.0); MONOCYTES % (AUTO) 8.1 %; NEUTROPHILS # (AUTO) 4.9 10^3/uL (1.5-6.6); PLT - PLATELET COUNT 267 10^3/uL (130-450); RED BLOOD COUNT 3.89 10^6/uL (4.20-5.40); RED CELL DISTRIBUTION WIDTH 13.2 % (12.0-15.0); WHITE BLOOD COUNT 7.2 x10^3/uL (4.8-10.8)
--- NOTE | 2021-02-26 11:05 | XRAY Report ---
PROCEDURE: Chest 1 View X-Ray INDICATIONS: chest pain TECHNIQUE: One view of the chest was acquired. COMPARISON: 01/18/2019, 12/01/2017 FINDINGS: Surgical changes and devices: Median sternotomy wires and surgical clips are again seen.. Lungs and pleura: No pleural effusions or pneumothorax. Mildly increased bronchovascular markings in bilateral hilar region are seen with mild bronchial wall thickening. No focal infiltrate. Mediastinum: Mediastinal contours appear normal. Heart size is normal. Bones and chest wall: No suspicious bony lesions. Overlying soft tissues appear unremarkable. IMPRESSION: Finding may represent mild reactive airway disease such as bronchitis or viral illness. No definite f ocal infiltrate, pleural effusion or pneumothorax. Reviewed by: Dimitry Medina MD on 02/26/2021 11:04 AM PST Approved by: Dimitry Medina MD on 02/26/2021 11:04 AM PST Station ID: [id number]
[2021-02-26 11:10] LABS: ALBUMIN 3.8 g/dL (3.2-5.5); ALBUMIN/GLOBULIN RATIO 1.1 (1.0-2.2); BILIRUBIN,TOTAL 0.5 mg/dL (0.2-1.0); CALCIUM 8.8 mg/dL (8.5-10.3); CREATININE 0.4 mg/dL (0.4-1.0); POTASSIUM 3.3 mmol/L (3.5-5.0); TOTAL PROTEIN 7.2 g/dL (6.7-8.2)
[2021-02-26 12:46] LABS: BILIRUBIN,URINE NEGATIVE (NEGATIVE); GLUCOSE, URINE (UA) NEGATIVE (NEGATIVE); KETONES,URINE (UA) NEGATIVE (NEGATIVE); LEUKOCYTE ESTERASE, URINE NEGATIVE (NEGATIVE); NITRITE,URINE POSITIVE (NEGATIVE); OCCULT BLOOD,URINE TRACE-INTA (NEGATIVE); PH,URINE 6.5 PH (5.0-7.5); PROTEIN,URINE NEGATIVE (NEGATIVE); UROBILINOGEN,URINE 0.2 (NORMAL) E.U./dL (NORMAL)
[2021-02-26 12:50] LABS: CLARITY,URINE CLEAR (CLEAR)
[2021-02-26 13:04] LABS: BACTERIA,URINE Moderate /HPF (None Seen); RBC,URINE 0-5 /HPF (0-5); SQUAMOUS EPITHELIAL CELL,UR RARE Squamous (<= Few); WBC,URINE 0-3 /HPF (0-5)
[2021-02-26] MEDS ORDERED: POTASSIUM CHLORIDE 20 MEQ TABLET PO STA (13:11)
[2021-02-26] MEDS ORDERED: IPRATROPIUM/ALBUTEROL 3 ML NEB INH STA (14:29)
[2021-02-26 14:43] LABS: INR 3.6 (0.8-1.2); PT - PROTHROMBIN TIME 40.4 secs (9.9-12.6)
[2021-02-26 16:08] VITALS: BP 140/72
== END 2021-02-26 16:14 | disposition home or self-care (01) ==
LOC: ED 09:50
DX: E86.0 Dehydration (principal); I10 Essential (primary) hypertension; Z95.1 Presence of aortocoronary bypass graft; Z79.01 Long term (current) use of anticoagulants
CPT/HCPCS: 36415; 71045; 80053; 81001; 83605; 83690; 85025; 85610; 87040; 87086; 87181; 96360; 96361; 99283; 99284; A9270; 81003

== ENCOUNTER 2021-12-08 08:00 | Outpatient (CLI) | payer MEDICARE, MEDICAID ==
[2021-12-08 17:45] LABS: BILIRUBIN,URINE NEGATIVE (NEGATIVE); GLUCOSE, URINE (UA) NEGATIVE (NEGATIVE); KETONES,URINE (UA) TRACE mg/dL (NEGATIVE); LEUKOCYTE ESTERASE, URINE NEGATIVE (NEGATIVE); NITRITE,URINE POSITIVE (NEGATIVE); OCCULT BLOOD,URINE TRACE-INTA (NEGATIVE); PROTEIN,URINE NEGATIVE (NEGATIVE); UROBILINOGEN,URINE 0.2 (NORMAL) E.U./dL (NORMAL)
[2021-12-08 17:49] LABS: CLARITY,URINE HAZY (CLEAR)
[2021-12-08 17:57] LABS: BACTERIA,URINE Many /HPF (None Seen); CRYSTALS,URINE 6-10 Calcium Oxalate /LPF; RBC,URINE 0-5 /HPF (0-5); SQUAMOUS EPITHELIAL CELL,UR MOD Squamous (<= Few)
== END 2021-12-08 23:59 | disposition home or self-care (01) ==
LOC: LAB.N 08:00
PROVIDERS: ATTEND Nurse Practitioner Family
DX: R39.89 Other symptoms and signs involving the genitourinary system (principal); I69.354 Hemiplegia and hemiparesis following cerebral infarction affecting left non-dominant side
CPT/HCPCS: 81001; 81003; 87086

== ENCOUNTER 2021-12-14 08:00 | Outpatient (CLI) | payer MEDICARE, MEDICAID ==
[2021-12-14 12:40] LABS: BILIRUBIN,URINE NEGATIVE (NEGATIVE); GLUCOSE, URINE (UA) NEGATIVE (NEGATIVE); KETONES,URINE (UA) NEGATIVE (NEGATIVE); LEUKOCYTE ESTERASE, URINE NEGATIVE (NEGATIVE); NITRITE,URINE POSITIVE (NEGATIVE); OCCULT BLOOD,URINE NEGATIVE (NEGATIVE); PROTEIN,URINE NEGATIVE (NEGATIVE); UROBILINOGEN,URINE 0.2 (NORMAL) E.U./dL (NORMAL)
[2021-12-14 12:44] LABS: CLARITY,URINE CLOUDY (CLEAR)
[2021-12-14 12:47] LABS: WBC,URINE 0-3 /HPF (0-5)
[2021-12-14 12:48] LABS: BACTERIA,URINE Many /HPF (None Seen); RBC,URINE 0-5 /HPF (0-5); SQUAMOUS EPITHELIAL CELL,UR FEW Squamous (<= Few)
== END 2021-12-14 23:59 | disposition home or self-care (01) ==
LOC: LAB.N 08:00
PROVIDERS: ATTEND Nurse Practitioner Family
DX: I69.354 Hemiplegia and hemiparesis following cerebral infarction affecting left non-dominant side (principal); R39.89 Other symptoms and signs involving the genitourinary system
CPT/HCPCS: 81001; 87086; 87181

== ENCOUNTER 2022-02-08 16:25 | Emergency (ER) | payer MEDICARE, MEDICAID ==
[2022-02-08 16:33] VITALS: BP 126/79
[2022-02-08] MEDS ORDERED: HYDROcod/ACETAM 5/325 MG TABLET PO STA ×2 (16:43→17:47)
--- NOTE | 2022-02-08 16:45 | ED Physician Documentation ---
PD HPI HEADACHE - Stated complaint Stated Complaint: GLF,HEAD PX - Chief complaint Chief Complaint: Trauma Hd/Nk - History obtained from History obtained from: Patient, Family - Additional information Additional information: 76-year-old woman on warfarin with prior stroke with left-sided hemiplegia was in the kitchen and had a mechanical fall, ground-level hitting the hardwood floor with the back of her head and she has a headache and upper back pain. No loss of consciousness. She is here with her son. This happened just about 45 minutes ago. Review of Systems Ten Systems: 10 systems reviewed and negative Constitutional: reports: Reviewed and negative Nose: reports: Reviewed and negative Throat: reports: Reviewed and negative Cardiac: reports: Reviewed and negative PD PAST MEDICAL HISTORY - Past Medical History Past Medical History: Yes Cardiovascular: Hypertension, High cholesterol, Coronary artery disease, Atrial fibrillation, Arrhythmia Respiratory: Asthma Neuro: CVA, Multiple sclerosis : Other Psych: Claustrophobia Musculoskeletal: Osteoarthritis, Fibromyalgia, Chronic back pain - Past Surgical History Past Surgical History: Yes 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 Cardiovascular: CABG - Present Medications Home Medications: Ambulatory Orders Medication Instructions Recorded Confirmed Omeprazole [Prilosec] 20 mg PO DAILY 01/16/14 02/26/21 Atorvastatin [Lipitor] 80 mg PO QPM #30 tablet 08/17/20 02/26/21 Baclofen 10 mg PO DAILY 02/26/21 02/26/21 DULoxetine [Cymbalta] 20 mg PO BID 02/26/21 02/26/21 Gabapentin [Neurontin] 300 mg PO DAILY 02/26/21 02/26/21 Losartan [Cozaar] 100 mg PO DAILY 02/26/21 02/26/21 Mecobalamin [B12 Active] 1,000 mcg PO DAILY 02/26/21 02/26/21 Melatonin/Pyridoxine [Melatonin 5 6 mg PO DAILY 02/26/21 02/26/21 mg Tablet] Metoprolol Succinate [Toprol Xl] 25 mg PO DAILY 02/26/21 02/26/21 Sennosides/Docusate Sodium 50 mg PO DAILY 02/26/21 02/26/21 [Senna-S 8.6-50 mg Tablet] Vitamin B Complex Vit C No.3 [B 0.8 mg PO DAILY 02/26/21 02/26/21 Complex with Vitamin C] Warfarin [Coumadin] 2.5 mg PO DAILY 02/26/21 02/26/21 amLODIPine [Norvasc] 2.5 mg 02/26/21 buPROPion [Wellbutrin Sr] 100 mg PO BID 02/26/21 02/26/21 - Allergies Allergies/Adverse Reactions: Allergies Allergy/AdvReac Type Severity Reaction Status Date / Time amoxicillin trihydrate * Allergy Rash Verified 02/08/22 16:33 [From Augmentin] nitrofurantoin Allergy Rash Verified 02/08/22 16:33 macrocrystalline * [From Macrodantin] potassium clavulanate * Allergy Rash Verified 02/08/22 16:33 [From Augmentin] lisinopril AdvReac Unknown Verified 02/08/22 16:33 - Social History Does the pt smoke?: No Smoking Status: Never smoker Does the pt drink ETOH?: Yes Does the pt have substance abuse?: No - Immunizations Immunizations are current?: Yes - POLST Patient has POLST: Yes PD ED PE NORMAL - Vitals Vital signs reviewed: Yes - General General: Alert and oriented X 3, No acute distress - HEENT HEENT: PERRL, EOMI, Other (There is a small subcutaneous hematoma on the left occiput) - Neck Neck: Supple, no meningeal sign, No bony TTP - Respiratory Respiratory: Clear bilaterally - Abdomen Abdomen: Non tender - Back Back: No CVA TTP, Other (Tender to the mid T-spine without deformity, no L-spine tenderness.) - Neuro Neuro: Alert and oriented X 3, Normal speech, Other (Left hemiplegia from prior stroke) Eye Opening: Spontaneous Motor: Obeys Commands Verbal: Oriented GCS Score: 15 Results - Vitals Vitals: Vital Signs - 24 hr 02/08/22 16:30 Temperature 36.4 C L Heart Rate 94 Respiratory 20 Rate Blood Pressure 126/79 O2 Saturation 99 Oxygen O2 Source Room air - Labs Labs: Laboratory Tests 02/08/22 16:50 INR (Fingerstick) 4.8 H* PD MEDICAL DECISION MAKING - ED course ED course: 76-year-old woman presents with head injury after a fall and some back pain. No traumatic injuries identified of see on CT of the head, C-spine, and thoracic spine. Incidental nephroliths were discussed with patient and . She declined a home-going prescription for pain medication. 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 Departure - Departure Disposition: 01 Home, Self Care Clinical Impression: Supratherapeutic INR Injury of head and neck Qualifiers: Encounter type: initial encounter Qualified Code(s): S09.90XA - Unspecified injury of head, initial encounter; S19.9XXA - Unspecified injury of neck, initial encounter Injury of back Qualifiers: Encounter type: initial encounter Qualified Code(s): S39.92XA - Unspecified injury of lower back, initial encounter Condition: Good Instructions: ED Head Injury Closed Sleep Mon Comments: You were seen today for injuries after a fall, thankfully we noted no serious injuries on a CT of the head, neck, and thoracic spine. We did note that you have stones in your kidneys which could become symptomatic 1 day and merit discussion with your physician. Your INR today is 4.8, skip your next dose of warfarin/Coumadin and recheck your INR prior to restarting. Return for new or worsening symptoms. Follow-up with your primary care physician, next billable appointment.
--- NOTE | 2022-02-08 17:46 | CT Report ---
PROCEDURE: HEAD WO INDICATIONS: Trauma, fall, head injury TECHNIQUE: Noncontrast 4.5 mm thick angled axial sections acquired from the foramen magnum to the vertex. For r adiation dose reduction, the following was used: automated exposure control, adjustment of mA and/or kV according to patient size. COMPARISON: 10/14/2021 FINDINGS: Diffuse moderate global cerebral volume loss with moderate chronic microvascular ischemic changes. En cephalomalacia and gliosis related to a large right MCA territory infarct not significantly different in appearance from 10/14/2021 exam. No acute intracranial hemorrhage. No mass effect or midline shif t. No gross orbital abnormality. Paranasal sinuses and mastoid air cells clear. IMPRESSION: No acute intracranial finding. Reviewed by: Miki Uribe MD on 02/08/2022 4:[address] [facility] Approved by: Miki Uribe MD on 02/08/2022 4:[address] [facility] Station ID: [id number]
--- NOTE | 2022-02-08 17:53 | CT Report ---
PROCEDURE: CERVICAL SPINE WO INDICATIONS: head injury TECHNIQUE: Noncontrast 3 mm thick sections acquired from the skull base to the T4 level. Sagittal and coronal r eformats were then constructed. For radiation dose reduction, the following was used: automated exp osure control, adjustment of mA and/or kV according to patient size. COMPARISON: None FINDINGS: Image quality: Good Bones: Mild to moderate degenerative changes. Sternotomy wires. No traumatic subluxation. No displace d fracture is identified. Soft tissues: No prevertebral soft tissue swelling. Atherosclerotic calcifications. IMPRESSION: Mild to moderate cervical spondylosis. No acute fracture or traumatic subluxation of the cervical spi ne. Reviewed by: Alfredo Shelby MD on 02/08/2022 5:51 PM PST Approved by: Alfredo Shelby MD on 02/08/2022 5:51 PM PST Station ID: [id number]
--- NOTE | 2022-02-08 17:56 | CT Report ---
PROCEDURE: THORACIC SPINE WO INDICATIONS: back inj TECHNIQUE: Noncontrast 3 mm thick sections acquired through the region of interest in the thoracic spine. Sagit berny and coronal reformats were then constructed. For radiation dose reduction, the following was used : automated exposure control, adjustment of mA and/or kV according to patient size. COMPARISON: None. FINDINGS: Image quality: Good Bones: scattered endplate deformities are favored to be degenerative. No definitely acute vertebral b saundra height loss. No evidence of traumatic subluxation. Soft tissues: No paravertebral hematoma or abscess. Coronary calcifications are partially seen. There are suspected nonobstructing renal calculi also partially seen. No pleural effusions. Lungs are only partially seen. Tiny pulmonary nodule in the right lower lobe (3/72) can be followed optionally for high-risk patients with chest CT. IMPRESSION: No acute fracture or traumatic subluxation of the thoracic spine. Other findings as above. Reviewed by: Alfredo Shelby MD on 02/08/2022 5:55 PM [facility] Approved by: Alfredo Shelby MD on 02/08/2022 5:55 PM PST Station ID: [id number]
== END 2022-02-08 18:29 | disposition home or self-care (01) ==
LOC: ED 16:25
DX: S09.90XA Unspecified injury of head, initial encounter (principal); S19.9XXA Unspecified injury of neck, initial encounter; S39.92XA Unspecified injury of lower back, initial encounter; W01.0XXA Fall on same level from slipping, tripping and stumbling without subsequent striking against object, initial encounter; Y92.000 Kitchen of unspecified non-institutional (private) residence as the place of occurrence of the external cause; R79.1 Abnormal coagulation profile; N20.0 Calculus of kidney; Z79.01 Long term (current) use of anticoagulants
CPT/HCPCS: 70450; 72125; 72128; 85610; 99284; A9270

== ENCOUNTER 2022-02-24 10:46 | Outpatient (CLI) | payer MEDICARE, MEDICAID ==
[2022-02-24 12:26] LABS: BASOPHILS # (AUTO) 0.1 10^3/uL (0.0-0.1); EOSINOPHILS # (AUTO) 0.1 10^3/uL (0.0-0.7); EOSINOPHILS % (AUTO) 1.5 %; HCT - HEMATOCRIT 40.6 % (37.0-47.0); HGB - HEMOGLOBIN 13.4 g/dL (12.0-16.0); LYMPHOCYTES # (AUTO) 1.9 10^3/uL (1.5-3.5); LYMPHOCYTES % (AUTO) 26.5 %; MEAN CORPUSCULAR HEMOGLOBIN 32.5 pg (27.0-31.0); MEAN CORPUSCULAR VOLUME 98.5 fL (81.0-99.0); MEAN PLATELET VOLUME 10.6 fL (7.9-10.8); MONOCYTES # (AUTO) 0.5 10^3/uL (0.0-1.0); MONOCYTES % (AUTO) 6.3 %; NEUTROPHILS # (AUTO) 4.6 10^3/uL (1.5-6.6); NEUTROPHILS % (AUTO) 64.6 %; PLT - PLATELET COUNT 299 10^3/uL (130-450); RED BLOOD COUNT 4.12 10^6/uL (4.20-5.40); RED CELL DISTRIBUTION WIDTH 13.1 % (12.0-15.0); WHITE BLOOD COUNT 7.1 x10^3/uL (4.8-10.8)
[2022-02-24 12:46] LABS: ALBUMIN 3.9 g/dL (3.2-5.5); ALBUMIN/GLOBULIN RATIO 1.2 (1.0-2.2); ALKALINE PHOSPHATASE 78 IU/L (42-121); ALT ALANINE AMINOTRANSFERASE < 10 IU/L (10-60); AST ASPARTATE AMINOTRANSFERASE 23 IU/L (10-42); BILIRUBIN,TOTAL 0.8 mg/dL (0.2-1.0); BUN - BLOOD UREA NITROGEN 12 mg/dL (6-20); CALCIUM 8.3 mg/dL (8.5-10.3); CARBON DIOXIDE - CO2 31 mmol/L (21-32); CHLORIDE 99 mmol/L (101-111); CREATININE 0.5 mg/dL (0.4-1.0); GFR - MDRD 120 (>89); GLUCOSE 119 mg/dL (70-100); POTASSIUM 3.3 mmol/L (3.5-5.0); SODIUM 138 mmol/L (135-145); TOTAL PROTEIN 7.1 g/dL (6.7-8.2)
[2022-02-24 19:23] LABS: BILIRUBIN,URINE NEGATIVE (NEGATIVE); GLUCOSE, URINE (UA) NEGATIVE (NEGATIVE); KETONES,URINE (UA) NEGATIVE (NEGATIVE); LEUKOCYTE ESTERASE, URINE NEGATIVE (NEGATIVE); NITRITE,URINE POSITIVE (NEGATIVE); OCCULT BLOOD,URINE TRACE-INTA (NEGATIVE); PROTEIN,URINE NEGATIVE (NEGATIVE); UROBILINOGEN,URINE 0.2 (NORMAL) E.U./dL (NORMAL)
[2022-02-24 19:27] LABS: CLARITY,URINE HAZY (CLEAR)
[2022-02-24 19:36] LABS: BACTERIA,URINE Many /HPF (None Seen); CRYSTALS,URINE 11-25 Ca Oxalate /LPF; RBC,URINE 0-5 /HPF (0-5); SQUAMOUS EPITHELIAL CELL,UR FEW Squamous (<= Few); WBC,URINE 0-3 /HPF (0-5)
== END 2022-02-24 10:47 | disposition home or self-care (01) ==
LOC: LAB.N 10:46
PROVIDERS: ATTEND Nurse Practitioner Family
DX: I69.354 Hemiplegia and hemiparesis following cerebral infarction affecting left non-dominant side (principal); R39.89 Other symptoms and signs involving the genitourinary system
CPT/HCPCS: 36415; 80053; 81001; 85025; 87086; 87181

== ENCOUNTER 2022-03-11 12:26 | Emergency (ER) | payer MEDICARE, MEDICAID ==
[2022-03-11 12:57] LABS: BASOPHILS # (AUTO) 0.1 10^3/uL (0.0-0.1); BASOPHILS % (AUTO) 0.7 %; EOSINOPHILS # (AUTO) 0.1 10^3/uL (0.0-0.7); EOSINOPHILS % (AUTO) 0.9 %; HCT - HEMATOCRIT 42.5 % (37.0-47.0); MEAN CORPUSCULAR HEMOGLOBIN 32.6 pg (27.0-31.0); MEAN CORPUSCULAR HGB CONC 32.9 g/dL (32.0-36.0); MEAN CORPUSCULAR VOLUME 98.8 fL (81.0-99.0); MEAN PLATELET VOLUME 10.3 fL (7.9-10.8); MONOCYTES # (AUTO) 0.6 10^3/uL (0.0-1.0); MONOCYTES % (AUTO) 7.8 %; NEUTROPHILS # (AUTO) 5.4 10^3/uL (1.5-6.6); NEUTROPHILS % (AUTO) 65.5 %; PLT - PLATELET COUNT 278 10^3/uL (130-450); RED CELL DISTRIBUTION WIDTH 13.1 % (12.0-15.0); WHITE BLOOD COUNT 8.2 x10^3/uL (4.8-10.8)
[2022-03-11 12:58] LABS: BILIRUBIN,URINE NEGATIVE (NEGATIVE); GLUCOSE, URINE (UA) NEGATIVE (NEGATIVE); KETONES,URINE (UA) NEGATIVE (NEGATIVE); LEUKOCYTE ESTERASE, URINE TRACE (NEGATIVE); NITRITE,URINE POSITIVE (NEGATIVE); OCCULT BLOOD,URINE LARGE (NEGATIVE); PH,URINE 6.5 PH (5.0-7.5); PROTEIN,URINE NEGATIVE (NEGATIVE); UROBILINOGEN,URINE 0.2 (NORMAL) E.U./dL (NORMAL)
[2022-03-11 13:04] LABS: INR 2.4 (0.8-1.2); PT - PROTHROMBIN TIME 25.7 secs (9.9-12.6)
[2022-03-11 13:05] LABS: CLARITY,URINE HAZY (CLEAR)
[2022-03-11 13:06] LABS: BACTERIA,URINE Moderate /HPF (None Seen); SQUAMOUS EPITHELIAL CELL,UR MANY Squamous (<= Few)
[2022-03-11 13:12] LABS: ALBUMIN 4.3 g/dL (3.2-5.5); ALBUMIN/GLOBULIN RATIO 1.3 (1.0-2.2); BILIRUBIN,TOTAL 0.9 mg/dL (0.2-1.0); CREATININE 0.5 mg/dL (0.4-1.0); POTASSIUM 2.9 mmol/L (3.5-5.0); TOTAL PROTEIN 7.5 g/dL (6.7-8.2)
[2022-03-11] MEDS ORDERED: POTASSIUM CHLORIDE 20 MEQ TABLET PO STA (13:35)
[2022-03-11] MEDS ORDERED: cefTRIAXone 1 GM VIAL IM STA (13:35)
[2022-03-11] MEDS ORDERED: LIDOCAINE 1% 2 ML VIAL MC ONE (13:35)
--- NOTE | 2022-03-11 13:39 | ED Physician Documentation ---
PD HPI FEMALE - Stated complaint Stated Complaint: FEMALE - Chief complaint Chief Complaint: Abd Pain - History obtained from History obtained from: Patient - Additional information Additional information: 76-year-old woman with history of coronary bypass, MS, and 2 CVAs with resultant severe left-sided deficits on warfarin presents with dark urine starting this morning. It is associated with some suprapubic pain. She went to the walk-in clinic where she had a urine dip done that was bloody and referred here for further evaluation and treatment. She denies fevers, flank pain. 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 Cardiovascular: CABG - Present Medications Home Medications: Ambulatory Orders Medication Instructions Recorded Confirmed Omeprazole [Prilosec] 20 mg PO DAILY 01/16/14 02/26/21 Atorvastatin [Lipitor] 80 mg PO QPM #30 tablet 08/17/20 02/26/21 Baclofen 10 mg PO DAILY 02/26/21 02/26/21 DULoxetine [Cymbalta] 20 mg PO BID 02/26/21 02/26/21 Gabapentin [Neurontin] 300 mg PO DAILY 02/26/21 02/26/21 Losartan [Cozaar] 100 mg PO DAILY 02/26/21 02/26/21 Mecobalamin [B12 Active] 1,000 mcg PO DAILY 02/26/21 02/26/21 Melatonin/Pyridoxine [Melatonin 5 6 mg PO DAILY 02/26/21 02/26/21 mg Tablet] Metoprolol Succinate [Toprol Xl] 25 mg PO DAILY 02/26/21 02/26/21 Sennosides/Docusate Sodium 50 mg PO DAILY 02/26/21 02/26/21 [Senna-S 8.6-50 mg Tablet] Vitamin B Complex Vit C No.3 [B 0.8 mg PO DAILY 02/26/21 02/26/21 Complex with Vitamin C] Warfarin [Coumadin] 2.5 mg PO DAILY 02/26/21 02/26/21 amLODIPine [Norvasc] 2.5 mg 02/26/21 buPROPion [Wellbutrin Sr] 100 mg PO BID 02/26/21 02/26/21 Ciprofloxacin [Cipro] 250 mg PO Q12H #10 tablet 03/11/22 - Allergies Allergies/Adverse Reactions: Allergies Allergy/AdvReac Type Severity Reaction Status Date / Time amoxicillin trihydrate * Allergy Rash Verified 03/11/22 12:31 [From Augmentin] nitrofurantoin Allergy Rash Verified 03/11/22 12:31 macrocrystalline * [From Macrodantin] potassium clavulanate * Allergy Rash Verified 03/11/22 12:31 [From Augmentin] lisinopril AdvReac Unknown Verified 03/11/22 12:31 - Social History Does the pt smoke?: No Smoking Status: Never smoker Does the pt drink ETOH?: Yes Does the pt have substance abuse?: No - Immunizations Immunizations are current?: Yes - POLST Patient has POLST: Yes PD ED PE NORMAL - Vitals Vital signs reviewed: Yes - General General: Alert and oriented X 3, No acute distress - Abdomen Abdomen: Other (Mild suprapubic tenderness, no flank tenderness) - Extremities Extremities: Other (She has significant left-sided deficits from prior stroke.) - Neuro Neuro: Alert and oriented X 3, Normal speech Results - Vitals Vitals: Vital Signs - 24 hr 03/11/22 12:31 Temperature 36.5 C Heart Rate 90 Respiratory 16 Rate Blood Pressure 144/73 H O2 Saturation 94 Oxygen O2 Source Room air - Labs Labs: Laboratory Tests 03/11/22 03/11/22 03/11/22 12:47 12:51 12:51 WBC 8.2 RBC 4.30 Hgb 14.0 Hct 42.5 MCV 98.8 MCH 32.6 H MCHC 32.9 RDW 13.1 Plt Count 278 MPV 10.3 Neut # (Auto) 5.4 Lymph # (Auto) 2.0 [place] # (Auto) 0.6 Eos # (Auto) 0.1 Baso # (Auto) 0.1 Absolute Nucleated RBC 0.00 Nucleated RBC % 0.0 PT 25.7 H INR 2.4 H Sodium Potassium Chloride Carbon Dioxide Anion Gap BUN Creatinine Estimated GFR (MDRD) Glucose Calcium Total Bilirubin AST ALT Alkaline Phosphatase Total Creatine Kinase Total Protein Albumin Globulin Albumin/Globulin Ratio Urine Color YELLOW Urine Clarity HAZY Urine pH 6.5 Ur Specific [place] <=1.005 Urine Protein NEGATIVE Urine Glucose (UA) NEGATIVE Urine Ketones NEGATIVE Urine Occult Blood LARGE H Urine Nitrite POSITIVE H Urine Bilirubin NEGATIVE Urine Urobilinogen 0.2 (NORMAL) Ur Leukocyte Esterase TRACE H Urine RBC 6-10 H Urine WBC 6-10 H Ur Squamous Epith Cells MANY Squamous H Urine Bacteria Moderate H Ur Microscopic Review INDICATED Urine Culture Comments NOT INDICATED 03/11/22 12:51 WBC RBC Hgb Hct MCV MCH MCHC RDW Plt Count MPV Neut # (Auto) Lymph # (Auto) [place] # (Auto) Eos # (Auto) Baso # (Auto) Absolute Nucleated RBC Nucleated RBC % PT INR Sodium 139 Potassium 2.9 L Chloride 100 L Carbon Dioxide 29 Anion Gap 10.0 BUN 10 Creatinine 0.5 Estimated GFR (MDRD) 120 Glucose 103 H Calcium 9.0 Total Bilirubin 0.9 AST 24 ALT 26 Alkaline Phosphatase 57 Total Creatine Kinase 43 Total Protein 7.5 Albumin 4.3 Globulin 3.2 Albumin/Globulin Ratio 1.3 Urine Color Urine Clarity Urine pH Ur Specific [place] Urine Protein Urine Glucose (UA) Urine Ketones Urine Occult Blood Urine Nitrite Urine Bilirubin Urine Urobilinogen Ur Leukocyte Esterase Urine RBC Urine WBC Ur Squamous Epith Cells Urine Bacteria Ur Microscopic Review Urine Culture Comments PD Medical Decision Making - ED course ED course: 76-year-old woman who presents with hematuria and evidence of UTI. Her CBC is reviewed and normal. INR reviewed and 2.4 consistent with therapeutic anticoagulation with warfarin. CMP reviewed and normal with the exception of a potassium of 2.9 which will be repleted orally. Her urinalysis has squamous cells in it, but given her symptoms will consider it adequate as it was difficult to get a urinalysis from her because of her mobility issues. Discus sed need to watch INR closely while on antibiotics. Given IM Rocephin here. Departure - Departure Disposition: Home, Self Care Clinical Impression: Adequate anticoagulation on anticoagulant therapy Urinary tract infection Qualifiers: Urinary tract infection type: acute cystitis Hematuria presence: with hematuria Qualified Code(s): N30.01 - Acute cystitis with hematuria Condition: Good Record reviewed to determine appropriate education?: Yes Instructions: ED UTI Cystitis Female Prescriptions: Ciprofloxacin [Cipro] 250 mg PO Q12H #10 tablet Comments: We will culture your urine, the results should be done in 48-72 hours. If an antibiotic change is necessary we will call you. Return if worse in the meantime, especially if you develop increasing flank pain, fevers, or cannot keep down the medication. Often times when you start antibiotics while you are taking anticoagulants such as Coumadin or warfarin, your INR will go up. You need to have your INR checked frequently while on the antibiotics. Have it checked in 3 days, again in 6 days, and at least weekly while you are on antibiotics. Dose adjustments of your anticoagulants may be necessary.
[2022-03-11 14:02] VITALS: BP 134/76
== END 2022-03-11 14:01 | disposition home or self-care (01) ==
LOC: ED 12:26
DX: N30.01 Acute cystitis with hematuria (principal); I25.10 Atherosclerotic heart disease of native coronary artery without angina pectoris; I48.91 Unspecified atrial fibrillation; Z95.1 Presence of aortocoronary bypass graft; Z79.01 Long term (current) use of anticoagulants; I10 Essential (primary) hypertension
CPT/HCPCS: 36415; 80053; 81001; 82550; 85025; 85610; 87086; 87181; 96372; 99283; 99284; A9270; 81003

== ENCOUNTER 2022-04-23 09:58 | Emergency (ER) | payer MEDICARE, MEDICAID ==
[2022-04-23 10:06] VITALS: BP 131/63
--- NOTE | 2022-04-23 11:16 | ED Physician Documentation ---
History of Present Illness - Stated complaint Stated Complaint: FEMALE - Chief complaint Chief Complaint: UTI - History obtained from History obtained from: Patient, Caregiver - History of Present Illness Timing: Today Pain level max: 1 Pain level now: 1 - Additonal information Additional information: 76-year-old female brought in by and caregiver. She uses a pure wick at night at home for urinary incontinence. They noticed that her urine was darker this morning. She also states that she had mild pelvic pain earlier. No fevers. No chills. No nausea or vomiting. No other abdominal pain. No diarrhea or constipation. No dysuria, urinary frequency. 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 Cardiovascular: CABG - Present Medications Home Medications: Ambulatory Orders Medication Instructions Recorded Confirmed Omeprazole [Prilosec] 20 mg PO DAILY 01/16/14 02/26/21 Atorvastatin [Lipitor] 80 mg PO QPM #30 tablet 08/17/20 02/26/21 Baclofen 10 mg PO DAILY 02/26/21 02/26/21 DULoxetine [Cymbalta] 20 mg PO BID 02/26/21 02/26/21 Gabapentin [Neurontin] 300 mg PO DAILY 02/26/21 02/26/21 Losartan [Cozaar] 100 mg PO DAILY 02/26/21 02/26/21 Mecobalamin [B12 Active] 1,000 mcg PO DAILY 02/26/21 02/26/21 Melatonin/Pyridoxine [Melatonin 5 6 mg PO DAILY 02/26/21 02/26/21 mg Tablet] Metoprolol Succinate [Toprol Xl] 25 mg PO DAILY 02/26/21 02/26/21 Sennosides/Docusate Sodium 50 mg PO DAILY 02/26/21 02/26/21 [Senna-S 8.6-50 mg Tablet] Vitamin B Complex Vit C No.3 [B 0.8 mg PO DAILY 02/26/21 02/26/21 Complex with Vitamin C] Warfarin [Coumadin] 2.5 mg PO DAILY 02/26/21 02/26/21 amLODIPine [Norvasc] 2.5 mg 02/26/21 buPROPion [Wellbutrin Sr] 100 mg PO BID 02/26/21 02/26/21 Ciprofloxacin [Cipro] 250 mg PO Q12H #10 tablet 03/11/22 Ciprofloxacin [Cipro] 250 mg PO Q12H #10 tablet 04/23/22 - Allergies Allergies/Adverse Reactions: Allergies Allergy/AdvReac Type Severity Reaction Status Date / Time amoxicillin trihydrate * Allergy Rash Verified 04/23/22 10:01 [From Augmentin] nitrofurantoin Allergy Rash Verified 04/23/22 10:01 macrocrystalline * [From Macrodantin] potassium clavulanate * Allergy Rash Verified 04/23/22 10:01 [From Augmentin] lisinopril AdvReac Unknown Verified 04/23/22 10:01 - Social History Does the pt smoke?: No Smoking Status: Never smoker Does the pt drink ETOH?: Yes Does the pt have substance abuse?: No - Immunizations Immunizations are current?: Yes - POLST Patient has POLST: Yes PD ED PE NORMAL - Vitals Vital signs reviewed: Yes - General General: Alert and oriented X 3, No acute distress - HEENT HEENT: Moist mucous membranes - Neck Neck: Supple, no meningeal sign - Cardiac Cardiac: RRR, Strong equal pulses - Respiratory Respiratory: No respiratory distress, Clear bilaterally - Abdomen Abdomen: Soft, Non tender, Non distended - Derm Derm: Warm and dry - Neuro Neuro: Alert and oriented X 3 - Psych Psych: Normal mood, Normal affect Results - Vitals Vitals: Vital Signs - 24 hr 04/23/22 04/23/22 10:01 12:06 Temperature 36.5 C Heart Rate 80 77 Respiratory 16 16 Rate Blood Pressure 131/63 H O2 Saturation 98 98 Oxygen O2 Source Room air - Labs Labs: Laboratory Tests 04/23/22 11:06 Urine Color DARK YELLOW Urine Clarity CLOUDY Urine pH 6.0 Ur Specific [place] 1.025 Urine Protein 30 H Urine Glucose (UA) NEGATIVE Urine Ketones TRACE Urine Occult Blood LARGE H Urine Nitrite POSITIVE H Urine Bilirubin NEGATIVE Urine Urobilinogen 1 (NORMAL) Ur Leukocyte Esterase MODERATE H Urine RBC 11-25 H Urine WBC >25 H Ur Squamous Epith Cells MOD Squamous H Urine Bacteria Many H Ur Microscopic Review INDICATED Urine Culture Comments NOT INDICATED PD Medical Decision Making - ED course Complexity details: reviewed results, re-evaluated patient, considered differential, d/w patient, d/w family ED course: Patient is well-appearing, nontoxic. Afebrile. No evidence of sepsis. No evidence of pyelonephritis. No CVA tenderness. Her urinalysis is consistent with UTI. We will place on Cipro for home. She has multiple medication allergies, but Cipro has worked in the past. Patient counseled regarding signs and symptoms for which I believe and urgent re-evaluation would be necessary. Patient with good understanding of and agreement to plan and is comfortable going home at this time This document was made in part using voice recognition software. While efforts are made to proofread this document, sound alike and grammatical errors may occur. Departure - Departure Disposition: 01 Home, Self Care Clinical Impression: Cystitis Condition: Good Instructions: ED UTI Cystitis Female Follow-Up: your,doctor in 1 week [Other] Prescriptions: Ciprofloxacin [Cipro] 250 mg PO Q12H #10 tablet Comments: Your prescription was sent to [facility] in [place]. Please take all antibiotics until gone. Return if you worsen. Discharge Date/Time: 04/23/22 12:06
[2022-04-23 11:37] LABS: BILIRUBIN,URINE NEGATIVE (NEGATIVE); CLARITY,URINE CLOUDY (CLEAR); GLUCOSE, URINE (UA) NEGATIVE (NEGATIVE); KETONES,URINE (UA) TRACE mg/dL (NEGATIVE); LEUKOCYTE ESTERASE, URINE MODERATE (NEGATIVE); NITRITE,URINE POSITIVE (NEGATIVE); OCCULT BLOOD,URINE LARGE (NEGATIVE); PROTEIN,URINE 30 mg/dL (NEGATIVE); UROBILINOGEN,URINE 1 (NORMAL) E.U./dL (NORMAL)
[2022-04-23 11:41] LABS: BACTERIA,URINE Many /HPF (None Seen); SQUAMOUS EPITHELIAL CELL,UR MOD Squamous (<= Few); WBC,URINE >25 /HPF (0-5)
[2022-04-23] MEDS ORDERED: CIPROFLOXACIN 250 MG TABLET PO STA (11:45)
== END 2022-04-23 12:06 | disposition home or self-care (01) ==
LOC: ED 09:58
DX: N30.90 Cystitis, unspecified without hematuria (principal); Z88.8 Allergy status to other drugs, medicaments and biological substances
CPT/HCPCS: 81001; 99283; A9270; 81003; 87086

== ENCOUNTER 2022-04-29 18:11 | Outpatient (CLI) | payer MEDICARE, MEDICAID | END 2022-04-29 18:12 | disposition EMS.NT | LOC: EMS 18:11 | DX: R46.89 Other symptoms and signs involving appearance and behavior (principal); R45.1 Restlessness and agitation ==

== ENCOUNTER 2022-04-30 14:40 | Outpatient (CLI) | payer MEDICARE, MEDICAID ==
[2022-04-30 17:41] LABS: BILIRUBIN,URINE NEGATIVE (NEGATIVE); GLUCOSE, URINE (UA) NEGATIVE (NEGATIVE); KETONES,URINE (UA) NEGATIVE (NEGATIVE); LEUKOCYTE ESTERASE, URINE LARGE (NEGATIVE); NITRITE,URINE POSITIVE (NEGATIVE); OCCULT BLOOD,URINE NEGATIVE (NEGATIVE); PH,URINE 6.5 PH (5.0-7.5); PROTEIN,URINE NEGATIVE (NEGATIVE); UROBILINOGEN,URINE 0.2 (NORMAL) E.U./dL (NORMAL)
[2022-04-30 17:43] LABS: CLARITY,URINE CLOUDY (CLEAR)
[2022-04-30 18:08] LABS: BACTERIA,URINE Many /HPF (None Seen); RBC,URINE 0-5 /HPF (0-5); SQUAMOUS EPITHELIAL CELL,UR FEW Squamous (<= Few); WBC,URINE >25 /HPF (0-5)
== END 2022-04-30 23:59 | disposition home or self-care (01) ==
LOC: LAB.N 14:40
PROVIDERS: ATTEND Nurse Practitioner Family
DX: R39.89 Other symptoms and signs involving the genitourinary system (principal)
CPT/HCPCS: 81001; 87086; 87181

== ENCOUNTER 2022-06-09 08:00 | Outpatient (CLI) | payer MEDICARE, MEDICAID ==
[2022-06-09 11:52] LABS: BILIRUBIN,URINE NEGATIVE (NEGATIVE); GLUCOSE, URINE (UA) NEGATIVE (NEGATIVE); KETONES,URINE (UA) NEGATIVE (NEGATIVE); LEUKOCYTE ESTERASE, URINE LARGE (NEGATIVE); NITRITE,URINE POSITIVE (NEGATIVE); OCCULT BLOOD,URINE TRACE-INTA (NEGATIVE); PH,URINE 6.5 PH (5.0-7.5); PROTEIN,URINE NEGATIVE (NEGATIVE); UROBILINOGEN,URINE 0.2 (NORMAL) E.U./dL (NORMAL)
[2022-06-09 11:53] LABS: CLARITY,URINE SL. CLOUDY (CLEAR)
[2022-06-09 12:03] LABS: BACTERIA,URINE Moderate /HPF (None Seen); RBC,URINE 0-5 /HPF (0-5); SQUAMOUS EPITHELIAL CELL,UR FEW Squamous (<= Few); WBC,URINE >25 /HPF (0-5)
== END 2022-06-09 23:59 | disposition home or self-care (01) ==
LOC: LAB.N 08:00
PROVIDERS: ATTEND Physician Assistant
DX: R30.0 Dysuria (principal)
CPT/HCPCS: 81001; 81003; 87086; 87181

== ENCOUNTER 2022-09-16 11:19 | Emergency (ER) | payer MEDICARE, MEDICAID ==
--- NOTE | 2022-09-16 11:43 | ED Physician Documentation ---
PD HPI ABD PAIN - Stated complaint Stated Complaint: FEMALE , GEN BODY ACHE - Chief complaint Chief Complaint: Abd Pain - History obtained from History obtained from: Patient - History of Present Illness Timing - onset: Today (onset this morning when care givers helped patient change from night clothing, and there was blood in the urine/Depends/Purewick solution.) Timing - details: Abrupt onset, Still present Location: Suprapubic (some cramping in bladder eara. they were not severe at that time.) Associated symptoms: Nausea, Dysuria, Loss of appetite. No: Fever, Vomiting Similar symptoms before: Diagnosis (has had UTIs in the past, but no blood in urine with proir infections.) Recently seen: Not recently seen Review of Systems Constitutional: denies: Fever, Chills GI: reports: Abdominal Pain, Nausea, Vomiting : reports: Hematuria. denies: Dysuria, Frequency, Discharge Skin: denies: Rash PD PAST MEDICAL HISTORY - Past Medical History Cardiovascular: Hypertension, High cholesterol, Coronary artery disease, Atrial fibrillation, Arrhythmia Respiratory: Asthma Neuro: CVA, Multiple sclerosis : Other Psych: Claustrophobia Musculoskeletal: Osteoarthritis, Fibromyalgia, Chronic back pain - Past Surgical History Past Surgical History: Yes General: Colonoscopy /[employer]: Hysterectomy Cardiovascular: CABG - Present Medications Home Medications: Ambulatory Orders Medication Instructions Recorded Confirmed Omeprazole [Prilosec] 20 mg PO DAILY 01/16/14 02/26/21 Atorvastatin [Lipitor] 80 mg PO QPM #30 tablet 08/17/20 02/26/21 Baclofen 10 mg PO DAILY 02/26/21 02/26/21 DULoxetine [Cymbalta] 20 mg PO BID 02/26/21 02/26/21 Gabapentin [Neurontin] 300 mg PO DAILY 02/26/21 02/26/21 Losartan [Cozaar] 100 mg PO DAILY 02/26/21 02/26/21 Mecobalamin [B12 Active] 1,000 mcg PO DAILY 02/26/21 02/26/21 Melatonin/Pyridoxine [Melatonin 5 6 mg PO DAILY 02/26/21 02/26/21 mg Tablet] Metoprolol Succinate [Toprol Xl] 25 mg PO DAILY 02/26/21 02/26/21 Sennosides/Docusate Sodium 50 mg PO DAILY 12/23/21 12/23/21 [Senna-S 8.6-50 mg Tablet] Vitamin B Complex Vit C No.3 [B 0.8 mg PO DAILY 02/26/21 02/26/21 Complex with Vitamin C] Warfarin [Coumadin] 2.5 mg PO DAILY 02/26/21 02/26/21 amLODIPine [Norvasc] 2.5 mg 02/26/21 buPROPion [Wellbutrin Sr] 100 mg PO BID 02/26/21 02/26/21 Ciprofloxacin [Cipro] 250 mg PO Q12H #10 tablet 03/11/22 Ciprofloxacin [Cipro] 250 mg PO Q12H #10 tablet 04/23/22 Ciprofloxacin HCl [Cipro] 500 mg PO BID #10 tablet 09/16/22 - Allergies Allergies/Adverse Reactions: Allergies Allergy/AdvReac Type Severity Reaction Status Date / Time amoxicillin trihydrate * Allergy Rash Verified 09/16/22 11:23 [From Augmentin] nitrofurantoin Allergy Rash Verified 09/16/22 11:23 macrocrystalline * [From Macrodantin] potassium clavulanate * Allergy Rash Verified 09/16/22 11:23 [From Augmentin] lisinopril AdvReac Unknown Verified 09/16/22 11:23 - Social History Does the pt smoke?: No Smoking Status: Never smoker Does the pt drink ETOH?: Yes Does the pt have substance abuse?: No - Immunizations Immunizations are current?: Yes - POLST Patient has POLST: Yes Results - Vitals Vitals: Vital Signs - 24 hr 09/16/22 09/16/22 11:23 13:55 Temperature 36.5 C Heart Rate 75 84 Respiratory 16 19 Rate Blood Pressure 127/56 L 139/75 H O2 Saturation 97 100 Oxygen O2 Source Room air - Labs Labs: Laboratory Tests 09/16/22 09/16/22 12:14 13:14 INR (Fingerstick) 3.7 H Urine Color YELLOW Urine Clarity CLEAR Urine pH 6.5 Ur Specific [place] <=1.005 Urine Protein NEGATIVE Urine Glucose (UA) NEGATIVE Urine Ketones NEGATIVE Urine Occult Blood MODERATE H Urine Nitrite NEGATIVE Urine Bilirubin NEGATIVE Urine Urobilinogen 0.2 (NORMAL) Ur Leukocyte Esterase NEGATIVE Urine RBC 6-10 H Urine WBC 0-3 Ur Squamous Epith Cells FEW Squamous Urine Bacteria Few Ur Microscopic Review INDICATED Urine Culture Comments NOT INDICATED PD Medical Decision Making - ED course Complexity details: reviewed results (She had good blood count a), considered differential (she has had hematuria in urine since yesterday. No pain iwth urination. Continued into today and seemed obviously purple red with urinations. No clots. ), d/w patient ED course: the patient is feeling okay on recheck after labs. Had urine here without dysuria. Milder red appearance. The urinalysis showed moderate blood. No signs of infection in the sample. I informed patient about UA without obvious infection. Can still be infection causing rawness/bleeding. Hopefully the bleeding is tapering and continues to do so. I talked with the patient (her son there as well) to discuss further testing. Consideration of KUB CT to eval for stones, masses, bladder lesions. Can also consider office based eval such as cystoscopy. Departure - Departure Disposition: 01 Home, Self Care Clinical Impression: Hematuria Condition: Stable Record reviewed to determine appropriate education?: Yes Instructions: ED Hematuria Follow-Up: Cori Galaviz ARNP [Primary Care Provider] - Jakob Napoles MD [Provider Admit Priv/Credential] - Prescriptions: Ciprofloxacin HCl [Cipro] 500 mg PO BID #10 tablet Comments: Your urine shows the blood of course. No obvious signs of infection to it though this is still likely going to be the most common cause of blood in the urine. We can treat it with Cipro twice daily for 5 days for this. However other considerations for blood in the urine can be polyps or diverticula or even tumors or stones. Would be good to follow-up with urology to evaluate the other potential causes for the blood in the urine. Hopefully will just clear anyway over the next couple of days but following up would still be appropriate. Return if increased amount of blood or if you are higher inability to urinate, fevers, notable pain or other concerns. I sent a prescription to [facility] in [place]. Your Coumadin level today showed an INR 3.7. Continue with your usual doses for now. Your INR want to be rechecked in the next 3 to 4 days as the antibiotics may affect the level. Discharge Date/Time: 09/16/22 13:55
[2022-09-16 12:44] LABS: BILIRUBIN,URINE NEGATIVE (NEGATIVE); GLUCOSE, URINE (UA) NEGATIVE (NEGATIVE); KETONES,URINE (UA) NEGATIVE (NEGATIVE); LEUKOCYTE ESTERASE, URINE NEGATIVE (NEGATIVE); NITRITE,URINE NEGATIVE (NEGATIVE); OCCULT BLOOD,URINE MODERATE (NEGATIVE); PH,URINE 6.5 PH (5.0-7.5); PROTEIN,URINE NEGATIVE (NEGATIVE); UROBILINOGEN,URINE 0.2 (NORMAL) E.U./dL (NORMAL)
[2022-09-16 12:45] LABS: CLARITY,URINE CLEAR (CLEAR)
[2022-09-16 12:57] LABS: BACTERIA,URINE Few /HPF (None Seen); SQUAMOUS EPITHELIAL CELL,UR FEW Squamous (<= Few); WBC,URINE 0-3 /HPF (0-5)
[2022-09-16] MEDS ORDERED: CIPROFLOXACIN 250 MG TABLET PO STA (13:44)
[2022-09-16 13:59] VITALS: BP 139/75
== END 2022-09-16 13:55 | disposition home or self-care (01) ==
LOC: ED 11:19
DX: R31.9 Hematuria, unspecified (principal); I10 Essential (primary) hypertension; E78.00 Pure hypercholesterolemia, unspecified; I48.91 Unspecified atrial fibrillation; G35 Multiple sclerosis; Z86.73 Personal history of transient ischemic attack (TIA), and cerebral infarction without residual deficits; I25.810 Atherosclerosis of coronary artery bypass graft(s) without angina pectoris; Z95.1 Presence of aortocoronary bypass graft; Z79.899 Other long term (current) drug therapy; Z79.01 Long term (current) use of anticoagulants
CPT/HCPCS: 51701; 81001; 85610; 99283; A9270; 81003; 87086

== ENCOUNTER 2023-04-01 09:49 | Outpatient (CLI) | payer MEDICARE, MEDICAID ==
[2023-04-01 10:03] LABS: BASOPHILS # (AUTO) 0.1 10^3/uL (0.0-0.1); BASOPHILS % (AUTO) 1.1 %; EOSINOPHILS # (AUTO) 0.3 10^3/uL (0.0-0.7); EOSINOPHILS % (AUTO) 4.4 %; HGB - HEMOGLOBIN 12.4 g/dL (12.0-16.0); LYMPHOCYTES # (AUTO) 1.3 10^3/uL (1.5-3.5); LYMPHOCYTES % (AUTO) 18.2 %; MEAN CORPUSCULAR HEMOGLOBIN 32.5 pg (27.0-31.0); MEAN CORPUSCULAR HGB CONC 32.6 g/dL (32.0-36.0); MEAN CORPUSCULAR VOLUME 99.5 fL (81.0-99.0); MEAN PLATELET VOLUME 10.2 fL (7.9-10.8); MONOCYTES # (AUTO) 0.7 10^3/uL (0.0-1.0); NEUTROPHILS # (AUTO) 4.9 10^3/uL (1.5-6.6); NEUTROPHILS % (AUTO) 67.2 %; PLT - PLATELET COUNT 252 10^3/uL (130-450); RED BLOOD COUNT 3.82 10^6/uL (4.20-5.40); RED CELL DISTRIBUTION WIDTH 12.8 % (12.0-15.0); WHITE BLOOD COUNT 7.3 x10^3/uL (4.8-10.8)
[2023-04-01 10:20] LABS: % IRON SATURATION 19 % (20-50); ALBUMIN 3.9 g/dL (3.2-5.5); ALBUMIN/GLOBULIN RATIO 1.3 (1.0-2.2); ALKALINE PHOSPHATASE 58 IU/L (42-121); ALT ALANINE AMINOTRANSFERASE 36 IU/L (10-60); AST ASPARTATE AMINOTRANSFERASE 19 IU/L (10-42); BILIRUBIN,TOTAL 0.4 mg/dL (0.2-1.0); BUN - BLOOD UREA NITROGEN 11 mg/dL (6-20); CALCIUM 8.9 mg/dL (8.5-10.3); CARBON DIOXIDE - CO2 30 mmol/L (21-32); CHLORIDE 106 mmol/L (101-111); CHOL/HDL RATIO 2.1 (<4.4); CHOLESTEROL 123 mg/dL; CREATININE 0.5 mg/dL (0.6-1.3); GFR - MDRD 120 (>89); GLUCOSE 104 mg/dL (74-104); HDL CHOLESTEROL 59 mg/dL; IRON 54 ug/dL (50-212); LDL CHOLESTEROL,CALCULATED 40 mg/dL; LDL/HDL RATIO 0.7 (<4.4); POTASSIUM 4.1 mmol/L (3.5-4.5); SODIUM 141 mmol/L (135-145); TOTAL IRON BINDING CAPACITY 279 ug/dL (250-450); TRANSFERRIN 199 mg/dL (203-362); TRIGLYCERIDES 120 mg/dL (48-352); VLDL CHOLESTEROL 24 mg/dL
[2023-04-01 10:32] LABS: THYROID STIMULATING HORMONE 1.58 uIU/mL (0.34-5.60)
[2023-04-01 10:38] LABS: FERRITIN 60.4 ng/mL (11.0-306.8)
== END 2023-04-01 09:50 | disposition home or self-care (01) ==
LOC: LAB 09:49
PROVIDERS: ATTEND Nurse Practitioner Family
DX: E78.5 Hyperlipidemia, unspecified (principal); R41.3 Other amnesia; Z86.2 Personal history of diseases of the blood and blood-forming organs and certain disorders involving the immune mechanism; Z79.899 Other long term (current) drug therapy; R23.1 Pallor
CPT/HCPCS: 36415; 80053; 80061; 82728; 83540; 83721; 84443; 84466; 85025